=== PATIENT | female | born 1960 | race Caucasian/White ===

== ENCOUNTER 2020-01-21 17:41 | Inpatient (IN) | payer SELFPAY ==
--- NOTE | 2020-01-21 17:49 | EDM.PDOC ---
ED HPI GENERAL MEDICAL PROBLEM - General Chief Complaint: Fever Stated Complaint: FEVER Time Seen by Provider: 01/21/20 17:45 Source of Information: Reports: Patient History Limitations: Reports: No Limitations - History of Present Illness INITIAL COMMENTS - FREE TEXT/NARRATIVE: HISTORY AND PHYSICAL: History of present illness: Patient is a 59-year-old female who presents to the emergency room with complaints of shortness of breath and fever x2 days. Patient states that she is originally from [facility] and recently drove to [place] to settle some legalities over land. She states last night she started to develop shortness of breath which has progressively gotten worse. She has had subjective fevers at home, generalized body aches and fatigue. She does appear to be SOB while talking, states its worse with ambulation or activity. Patient denies any headache, change in vision, syncope or near syncope. Denies any chest pain, back pain or cough. Denies any abdominal pain, nausea, vomiting, diarrhea, constipation or dysuria. Patient has been eating and drinking appropriately. She does not believe she has come into contact with anyone who is been ill. She has a daily smoker. Review of systems: As per history of present illness and below otherwise all systems reviewed and negative. Past medical history: As per history of present illness and as reviewed below otherwise noncontributory. Surgical history: As per history of present illness and as reviewed below otherwise noncontributory. Social history: See social history for further information Family history: As per history of present illness and as reviewed below otherwise noncontributory. Physical exam: General: Well-developed and well-nourished 59-year-old female. Alert and oriented. Mildly ill-appearing and in no acute distress HEENT: Atraumatic, normocephalic, pupils equal and reactive bilaterally, negative for conjunctival pallor or scleral icterus, mucous membranes moist, TMs normal bilaterally, throat clear, neck supple, nontender, trachea midline. No drooling or trismus noted. No meningeal signs. No hot potato voice noted. Lungs: Diminished bases bilaterally, breath sounds equal bilaterally, chest nontender. Labored respirations. Heart: S1S2, regular rate and rhythm without overt murmur Abdomen: Soft, nondistended, nontender. Negative for masses or hepatosplenomegaly. Negative for costovertebral tenderness. Skin: Flushed cheeks bilaterally. Intact, warm, dry. No lesions or rashes noted. Extremities: Atraumatic, moves all extremities per self without difficulty or deficits, negative for cords or calf pain. Neurovascular unremarkable. Neuro: Awake, alert, oriented. Cranial nerves II through XII unremarkable. Cerebellum unremarkable. Motor and sensory unremarkable throughout. Exam nonfocal. Notes: X-ray is increased density within the left base most likely representing atelectasis. Lab work is unremarkable with the exception of an elevated lactate. Due to the recent COVID pandemic; patient will be screened as she meets criteria. IV fluid bolus has been given and fluids are running. Dr. Dubon was consulted on this case and he is agreeable to keeping her for further care and management. Patient will be admitted for observation with telemetry. She was made aware of the diagnostic findings and need for admission, she is agreeable. Patient's vital signs are stable. Diagnostics: CBC, CMP, Lactic, Blood culture x 2, CXR Therapeutics: IV fluids, Toradol, Nasal Cannula, Rocephin, azithromycin Impression: Sepsis Respiratory illness Plan: Observation admission to [facility] [place] with telemetry Definitive disposition and diagnosis as appropriate pending reevaluation and review of above. Duration: Day(s): Location: Reports: Chest Generalized Pain Score (Numeric/FACES): 8 - Related Data Allergies Allergy/AdvReac Type Severity Reaction Status Date / Time No Known Allergies Allergy Verified 01/21/20 17:48 Home Meds: Home Meds . [No Known Home Meds] 01/21/20 [History] ED ROS GENERAL - Review of Systems Review Of Systems: Comprehensive ROS is negative, except as noted in HPI. ED EXAM, GENERAL - Physical Exam Exam: See Below (See dictation) Course - Vital Signs Last Recorded V/S: Last Vital Signs Temp 99.3 F 01/21/20 18:48 Pulse 86 01/21/20 18:48 Resp 18 01/21/20 18:48 BP 141/72 H 01/21/20 18:48 Pulse Ox 97 01/21/20 18:48 - Orders/Labs/Meds Orders: Active Orders 24 hr Category Date Time Status Admission Status [Patient Status] [ADT] Stat ADT 01/21/20 18:45 Active EKG Documentation Completion [RC] STAT Care 01/21/20 17:52 Active Oxygen Therapy, ED [RC] ASDIRECTED Care 01/21/20 18:34 Active CORONAVIRUS COVID-19 PCR PHL [MREF] Stat Lab 01/21/20 18:22 Ordered CULTURE BLOOD [BC] Stat Lab 01/21/20 17:59 Ordered CULTURE BLOOD [BC] Stat Lab 01/21/20 17:59 Ordered CULTURE BLOOD [BC] Stat Lab 01/21/20 18:18 Stop Req UA RFX DARIO AND CULT IF INDIC [URIN] Stat Lab 01/21/20 18:37 Ordered Sodium Chloride 0.9% [Normal Saline] 1,000 ml Med 01/21/20 17:59 Active IV STAT Sodium Chloride 0.9% [Normal Saline] 1,000 ml Med 01/21/20 18:23 Active IV STAT Sodium Chloride 0.9% [Saline Flush] Med 01/21/20 17:52 Active 10 ml FLUSH ASDIRECTED PRN Sodium Chloride 0.9% [Saline Flush] Med 01/21/20 17:52 Active 2.5 ml FLUSH ASDIRECTED PRN cefTRIAXone [Rocephin in Dextrose,Iso-Osm 1 GM/50 ML] 1 Med 01/21/20 18:51 Active gm Premix Bag 1 bag IV ONETIME Blood Culture x2 Reflex Set [OM.PC] Stat Oth 01/21/20 17:59 Ordered Isolation [COMM] Routine Oth 01/21/20 17:53 Active Saline Lock Insert [OM.PC] Stat Oth 01/21/20 17:52 Ordered Medication Orders Sodium Chloride (Normal Saline) 1,000 mls @ 125 mls/hr IV STAT ONE Stop: 01/22/20 01:58 Last Admin: 01/21/20 18:23 Dose: 125 mls/hr Sodium Chloride (Normal Saline) 1,000 mls @ 999 mls/hr IV STAT ONE Stop: 01/21/20 19:23 Ceftriaxone Sodium/Dextrose 1 (gm/ Premix) 50 mls @ 100 mls/hr IV ONETIME ONE Stop: 01/21/20 19:20 Sodium Chloride (Saline Flush) 10 ml FLUSH ASDIRECTED PRN PRN Reason: Keep Vein Open Last Admin: 01/21/20 18:23 Dose: 10 ml Sodium Chloride (Saline Flush) 2.5 ml FLUSH ASDIRECTED PRN PRN Reason: Keep Vein Open Last Admin: 01/21/20 18:23 Dose: 2.5 ml Labs: Laboratory Tests 01/21/20 01/21/20 01/21/20 Range/Units 18:07 18:07 18:07 WBC 7.30 (4.0-11.0) K/uL RBC 4.85 (4.30-5.90) M/uL Hgb 14.7 (12.0-16.0) g/dL Hct 44.7 (36.0-46.0) % MCV 92.2 (80.0-98.0) fL MCH 30.3 (27.0-32.0) pg MCHC 32.9 (31.0-37.0) g/dL RDW Std Deviation 42.5 (28.0-62.0) fl RDW Coeff of [place] 13 (11.0-15.0) % Plt Count 271 (150-400) K/uL MPV 9.50 (7.40-12.00) fL Neut % (Auto) 87.7 H (48.0-80.0) % Lymph % (Auto) 6.8 L (16.0-40.0) % [place] % (Auto) 5.1 (0.0-15.0) % Eos % (Auto) 0.3 (0.0-7.0) % Baso % (Auto) 0.1 (0.0-1.5) % Neut # (Auto) 6.4 H (1.4-5.7) K/uL Lymph # (Auto) 0.5 L (0.6-2.4) K/uL [place] # (Auto) 0.4 (0.0-0.8) K/uL Eos # (Auto) 0.0 (0.0-0.7) K/uL Baso # (Auto) 0.0 (0.0-0.1) K/uL Nucleated RBC % 0.0 /100WBC Nucleated RBCs # 0 K/uL Lactate 3.3 H* (0.20-2.00) mmol/L Sodium 139 (136-145) mmol/L Potassium 4.0 (3.5-5.1) mmol/L Chloride 103 (98-107) mmol/L Carbon Dioxide 23.2 (21.0-32.0) mmol/L BUN 14 (7.0-18.0) mg/dL Creatinine 0.9 (0.6-1.0) mg/dL Est Cr Clr Drug Dosing 59.07 mL/min Estimated GFR (MDRD) > 60.0 ml/min Glucose 138 H (74-106) mg/dL Calcium 8.8 (8.5-10.1) mg/dL Total Bilirubin 0.8 (0.2-1.0) mg/dL AST 27 (15-37) IU/L ALT 25 (14-63) IU/L Alkaline Phosphatase 87 (46-116) U/L Troponin I < 0.050 (0.000-0.056) ng/mL Total Protein 7.4 (6.4-8.2) g/dL Albumin 3.6 (3.4-5.0) g/dL Globulin 3.8 (2.6-4.0) g/dL Albumin/Globulin Ratio 0.9 (0.9-1.6) Meds: Medications Generic Name Dose Route Start Last Admin Trade Name Freq PRN Reason Stop Dose Admin Sodium Chloride 1,000 mls @ 125 mls/hr 01/21/20 17:59 01/21/20 18:23 Normal Saline IV 01/22/20 01:58 125 mls/hr STAT ONE Administration Sodium Chloride 1,000 mls @ 999 mls/hr 01/21/20 18:23 Normal Saline IV 01/21/20 19:23 STAT ONE Ceftriaxone Sodium/Dextrose 1 50 mls @ 100 mls/hr 01/21/20 18:51 gm/ Premix IV 01/21/20 19:20 ONETIME ONE Sodium Chloride 10 ml 01/21/20 17:52 01/21/20 18:23 Saline Flush FLUSH 10 ml ASDIRECTED PRN Administration Keep Vein Open Sodium Chloride 2.5 ml 01/21/20 17:52 01/21/20 18:23 Saline Flush FLUSH 2.5 ml ASDIRECTED PRN Administration Keep Vein Open Discontinued Medications Generic Name Dose Route Start Last Admin Trade Name Freq PRN Reason Stop Dose Admin Azithromycin 500 mg 01/21/20 18:51 Zithromax PO 01/21/20 18:52 NOW STA Ketorolac Tromethamine 30 mg 01/21/20 17:59 01/21/20 18:23 Toradol IVPUSH 01/21/20 18:00 30 mg ONETIME ONE Administration Departure - Departure Time of Disposition: 18:55 Disposition: Refer to Observation Clinical Impression: Respiratory illness Sepsis Qualifiers: Sepsis type: sepsis due to unspecified organism Sepsis acute organ dysfunction status: unspecified Qualified Code(s): A41.9 - Sepsis, unspecified organism - Discharge Information Referrals: PCP,Not In Area [Primary Care Provider] - Forms: ED Department Discharge Sepsis Event Note - Evaluation Sepsis Screening Result: Possible Sepsis Risk - Focused Exam Vital Signs: Vital Signs Temp Pulse Resp BP Pulse Ox 01/21/20 18:48 99.3 F 86 18 141/72 H 97 01/21/20 17:46 101.1 F H 98 24 H 141/88 H 97 Date Exam was Performed: 01/21/20 Time Exam was Performed: 18:55 - My Orders Last 24 Hours: My Active Orders 01/21/20 17:52 EKG Documentation Completion [RC] STAT Sodium Chloride 0.9% [Saline Flush] 10 ml FLUSH ASDIRECTED PRN Sodium Chloride 0.9% [Saline Flush] 2.5 ml FLUSH ASDIRECTED PRN Saline Lock Insert [OM.PC] Stat 01/21/20 17:53 Isolation [COMM] Routine 01/21/20 17:59 CULTURE BLOOD [BC] Stat CULTURE BLOOD [BC] Stat Sodium Chloride 0.9% [Normal Saline] 1,000 ml IV STAT Blood Culture x2 Reflex Set [OM.PC] Stat 01/21/20 18:18 CULTURE BLOOD [BC] Stat 01/21/20 18:22 CORONAVIRUS COVID-19 PCR PHL [MREF] Stat 01/21/20 18:23 Sodium Chloride 0.9% [Normal Saline] 1,000 ml IV STAT 01/21/20 18:34 Oxygen Therapy, ED [RC] ASDIRECTED 01/21/20 18:37 UA RFX DARIO AND CULT IF INDIC [URIN] Stat 01/21/20 18:45 Admission Status [Patient Status] [ADT] Stat 01/21/20 18:51 cefTRIAXone [Rocephin in Dextrose,Iso-Osm 1 GM/50 ML] 1 gm Premix Bag 1 bag IV ONETIME - Assessment/Plan Last 24 Hours: My Active Orders 01/21/20 17:52 EKG Documentation Completion [RC] STAT Sodium Chloride 0.9% [Saline Flush] 10 ml FLUSH ASDIRECTED PRN Sodium Chloride 0.9% [Saline Flush] 2.5 ml FLUSH ASDIRECTED PRN Saline Lock Insert [OM.PC] Stat 01/21/20 17:53 Isolation [COMM] Routine 01/21/20 17:59 CULTURE BLOOD [BC] Stat CULTURE BLOOD [BC] Stat Sodium Chloride 0.9% [Normal Saline] 1,000 ml IV STAT Blood Culture x2 Reflex Set [OM.PC] Stat 01/21/20 18:18 CULTURE BLOOD [BC] Stat 01/21/20 18:22 CORONAVIRUS COVID-19 PCR PHL [MREF] Stat 01/21/20 18:23 Sodium Chloride 0.9% [Normal Saline] 1,000 ml IV STAT 01/21/20 18:34 Oxygen Therapy, ED [RC] ASDIRECTED 01/21/20 18:37 UA RFX DARIO AND CULT IF INDIC [URIN] Stat 01/21/20 18:45 Admission Status [Patient Status] [ADT] Stat 01/21/20 18:51 cefTRIAXone [Rocephin in Dextrose,Iso-Osm 1 GM/50 ML] 1 gm Premix Bag 1 bag IV ONETIME
[2020-01-21] MEDS ORDERED: Sodium Chloride 0.9% 2.5 ML Syringe FLUSH PRN (17:52)
[2020-01-21] MEDS ORDERED: Sodium Chloride 0.9% 10 ML Syringe FLUSH PRN (17:52)
[2020-01-21] MEDS ORDERED: Ketorolac 30 MG/ML SDV IVPUSH ONE (17:59)
[2020-01-21] MEDS ORDERED: Sodium Chloride 0.9% 1,000 ML IV ONE ×2 (17:59→18:23)
[2020-01-21 18:32] LABS: BLOOD UREA NITROGEN,BUN 14 mg/dL (7.0-18.0); CARBON DIOXIDE,CO2 23.2 mmol/L (21.0-32.0); CHLORIDE,CL 103 mmol/L (98-107); GLUCOSE RANDOM 138 mg/dL (74-106); SODIUM,NA 139 mmol/L (136-145)
--- NOTE | 2020-01-21 18:35 | CR ---
Chest: Portable view of the chest was obtained. Comparison: No prior chest imaging is available. Slight increased density above the left hemidiaphragm is noted. This most likely represents atelectasis. Lungs otherwise are clear. Heart size and mediastinum are within normal limits for age. Bony structures show nothing acute. Impression: 1. Increased density within the left base most likely representing atelectasis. 2. Nothing acute is otherwise seen on portable chest x-ray. Diagnostic code #2 Study was dictated in MDT
[2020-01-21] MEDS ORDERED: Azithromycin 250 MG Tab PO STA (18:51)
[2020-01-21] MEDS ORDERED: cefTRIAXone 1 GM in Premix Bag 1 BAG IV ONE (18:51)
[2020-01-21] MEDS: Sodium Chloride 0.9% 1,000 ML IV SCH (22:09)
--- NOTE | 2020-01-21 22:51 | PCM.HP.2 ---
H&P History of Present Illness - General Date of Service: 01/21/20 Admit Problem/Dx: Admission Diagnosis/Problem Admission Diagnosis/Problem Sepsis - History of Present Illness Initial Comments - Free Text/Narative: 59 yo female who presents with several day history of fevers, myalgias and shortness of breath. Patient reports headache but no cough. Two weeks ago she was in a hospital in [facility] with chest pain where she was tested negative for COVID-19. She has since drove up to [place] with her and sister in- law as they had an appointment with a oil inspector. The have been staying in hotels. Vital signs on presentation showed a temp of 38.3, O2 sat of 97% and HR of 98. Laboratory values significant for lactic acid of 3.3. CXR showed left lower lobe infiltrates. Generalized Pain Score (Numeric/FACES): 7 - Related Data Allergies/Adverse Reactions: Allergies Allergy/AdvReac Type Severity Reaction Status Date / Time No Known Allergies Allergy Verified 01/21/20 17:48 Home Medications: Home Meds FLUoxetine [PROzac] 40 mg PO DAILY 01/21/20 [History] Past Medical History HEENT History: Reports: None Cardiovascular History: Reports: None Respiratory History: Reports: None Gastrointestinal History: Reports: None Genitourinary History: Reports: None INHALATION THERAPY AIDE History: Reports: None Musculoskeletal History: Reports: None Psychiatric History: Reports: Anxiety, Depression, PTSD Endocrine/Metabolic History: Reports: None Hematologic History: Reports: None Immunologic History: Reports: None Oncologic (Cancer) History: Reports: None Dermatologic History: Reports: None - Infectious Disease History Infectious Disease History: Reports: Chicken Pox - Past Surgical History Head Surgeries/Procedures: Reports: None Neurological Surgical History: Reports: Lumbar Spine Social & Family History - Tobacco Use Smoking Status *Q: Current Every Day Smoker Years of Tobacco use: 10 Packs/Tins Daily: 0 Second Hand Smoke Exposure: Yes - Recreational Drug Use Recreational Drug Use: No H&P Review of Systems - Review of Systems: Review Of Systems: Comprehensive ROS is negative, except as noted in HPI. Exam - Exam Exam: See Below - Vital Signs Vital Signs: Last Vital Signs Temp 37.4 C 01/21/20 19:43 Pulse 72 01/21/20 20:32 Resp 15 01/21/20 20:32 BP 141/70 H 01/21/20 20:32 Pulse Ox 100 01/21/20 20:32 Weight: 63.9 kg - Patient Data Lab Results Last 24 hrs: Laboratory Results - last 24 hr 01/21/20 01/21/20 01/21/20 Range/Units 18:07 18:07 18:07 WBC 7.30 (4.0-11.0) K/uL RBC 4.85 (4.30-5.90) M/uL Hgb 14.7 (12.0-16.0) g/dL Hct 44.7 (36.0-46.0) % MCV 92.2 (80.0-98.0) fL MCH 30.3 (27.0-32.0) pg MCHC 32.9 (31.0-37.0) g/dL RDW Std Deviation 42.5 (28.0-62.0) fl RDW Coeff of Gila 13 (11.0-15.0) % Plt Count 271 (150-400) K/uL MPV 9.50 (7.40-12.00) fL Neut % (Auto) 87.7 H (48.0-80.0) % Lymph % (Auto) 6.8 L (16.0-40.0) % [place] % (Auto) 5.1 (0.0-15.0) % Eos % (Auto) 0.3 (0.0-7.0) % Baso % (Auto) 0.1 (0.0-1.5) % Neut # (Auto) 6.4 H (1.4-5.7) K/uL Lymph # (Auto) 0.5 L (0.6-2.4) K/uL [place] # (Auto) 0.4 (0.0-0.8) K/uL Eos # (Auto) 0.0 (0.0-0.7) K/uL Baso # (Auto) 0.0 (0.0-0.1) K/uL Nucleated RBC % 0.0 /100WBC Nucleated RBCs # 0 K/uL Lactate 3.3 H* (0.20-2.00) mmol/L Sodium 139 (136-145) mmol/L Potassium 4.0 (3.5-5.1) mmol/L Chloride 103 (98-107) mmol/L Carbon Dioxide 23.2 (21.0-32.0) mmol/L BUN 14 (7.0-18.0) mg/dL Creatinine 0.9 (0.6-1.0) mg/dL Est Cr Clr Drug Dosing 59.07 mL/min Estimated GFR (MDRD) > 60.0 ml/min Glucose 138 H (74-106) mg/dL Calcium 8.8 (8.5-10.1) mg/dL Total Bilirubin 0.8 (0.2-1.0) mg/dL AST 27 (15-37) IU/L ALT 25 (14-63) IU/L Alkaline Phosphatase 87 (46-116) U/L Troponin I < 0.050 (0.000-0.056) ng/mL Total Protein 7.4 (6.4-8.2) g/dL Albumin 3.6 (3.4-5.0) g/dL Globulin 3.8 (2.6-4.0) g/dL Albumin/Globulin Ratio 0.9 (0.9-1.6) Urine Color Urine Appearance Urine pH (5.0-8.0) Ur Specific [place] (1.001-1.035) Urine Protein (NEGATIVE) mg/dL Urine Glucose (UA) (NEGATIVE) mg/dL Urine Ketones (NEGATIVE) mg/dL Urine Occult Blood (NEGATIVE) Urine Nitrite (NEGATIVE) Urine Bilirubin (NEGATIVE) Urine Urobilinogen (<2.0) EU/dL Ur Leukocyte Esterase (NEGATIVE) Urine RBC (0-2/HPF) Urine WBC (0-5/HPF) Ur Epithelial Cells (NONE-FEW) Urine Bacteria (NEGATIVE) 01/21/20 Range/Units 21:10 WBC (4.0-11.0) K/uL RBC (4.30-5.90) M/uL Hgb (12.0-16.0) g/dL Hct (36.0-46.0) % MCV (80.0-98.0) fL MCH (27.0-32.0) pg MCHC (31.0-37.0) g/dL RDW Std Deviation (28.0-62.0) fl RDW Coeff of [place] (11.0-15.0) % Plt Count (150-400) K/uL MPV (7.40-12.00) fL Neut % (Auto) (48.0-80.0) % Lymph % (Auto) (16.0-40.0) % [place] % (Auto) (0.0-15.0) % Eos % (Auto) (0.0-7.0) % Baso % (Auto) (0.0-1.5) % Neut # (Auto) (1.4-5.7) K/uL Lymph # (Auto) (0.6-2.4) K/uL [place] # (Auto) (0.0-0.8) K/uL Eos # (Auto) (0.0-0.7) K/uL Baso # (Auto) (0.0-0.1) K/uL Nucleated RBC % /100WBC Nucleated RBCs # K/uL Lactate (0.20-2.00) mmol/L Sodium (136-145) mmol/L Potassium (3.5-5.1) mmol/L Chloride (98-107) mmol/L Carbon Dioxide (21.0-32.0) mmol/L BUN (7.0-18.0) mg/dL Creatinine (0.6-1.0) mg/dL Est Cr Clr Drug Dosing mL/min Estimated GFR (MDRD) ml/min Glucose (74-106) mg/dL Calcium (8.5-10.1) mg/dL Total Bilirubin (0.2-1.0) mg/dL AST (15-37) IU/L ALT (14-63) IU/L Alkaline Phosphatase (46-116) U/L Troponin I (0.000-0.056) ng/mL Total Protein (6.4-8.2) g/dL Albumin (3.4-5.0) g/dL Globulin (2.6-4.0) g/dL Albumin/Globulin Ratio (0.9-1.6) Urine Color YELLOW Urine Appearance CLEAR Urine pH 5.5 (5.0-8.0) Ur Specific [place] <= 1.005 (1.001-1.035) Urine Protein NEGATIVE (NEGATIVE) mg/dL Urine Glucose (UA) NEGATIVE (NEGATIVE) mg/dL Urine Ketones NEGATIVE (NEGATIVE) mg/dL Urine Occult Blood TRACE-LYSED H (NEGATIVE) Urine Nitrite NEGATIVE (NEGATIVE) Urine Bilirubin NEGATIVE (NEGATIVE) Urine Urobilinogen 0.2 (<2.0) EU/dL Ur Leukocyte Esterase NEGATIVE (NEGATIVE) Urine RBC 0-2 (0-2/HPF) Urine WBC 0-1 (0-5/HPF) Ur Epithelial Cells OCCASIONAL (NONE-FEW) Urine Bacteria RARE (NEGATIVE) Result Diagrams: 01/21/20 18:07 01/21/20 18:07 [place] Results Last 24 hrs: Microbiology 01/21/20 18:09 Influenza Type A Antigen Screen - Final Nasopharyngeal Swab NEGATIVE INFLUENZA A VIRUS AG REFERENCE RANGE: NEGATIVE Influenza Type B Antigen Screen - Final NEGATIVE INFLUENZA B VIRUS AG REFERENCE RANGE: NEGATIVE Sepsis Event Note - Evaluation Sepsis Screening Result: No Definite Risk - Focused Exam Vital Signs: Vital Signs Temp Pulse Resp BP Pulse Ox 01/21/20 20:32 72 15 141/70 H 100 01/21/20 19:43 37.4 C 85 16 147/63 H 100 01/21/20 19:10 82 17 143/66 H 93 L 01/21/20 18:48 37.4 C 86 18 141/72 H 97 01/21/20 17:46 38.4 C H 98 24 H 141/88 H 97 Date Exam was Performed: 01/21/20 Time Exam was Performed: 23:10 Problem List Initiated/Reviewed/Updated: Yes Orders Last 24hrs: Active Orders 24 hr Category Date Time Status Admission Status [Patient Status] [ADT] Stat ADT 01/21/20 18:45 Active Antiembolic Devices [RC] PER UNIT ROUTINE Care 01/21/20 22:04 Active EKG Documentation Completion [RC] STAT Care 01/21/20 17:52 Active Oxygen Therapy [RC] PRN Care 01/21/20 22:03 Active Oxygen Therapy, ED [RC] ASDIRECTED Care 01/21/20 18:34 Active Up ad Lory [RC] ASDIRECTED Care 01/21/20 22:03 Active VTE/DVT Education [RC] PER UNIT ROUTINE Care 01/21/20 22:03 Active Vital Signs [RC] Q4H Care 01/21/20 22:03 Active Regular Diet [DIET] Diet 01/22/20 Breakfast Active BASIC METABOLIC PANEL,BMP [CHEM] AM Lab 01/22/20 05:11 Ordered CBC WITH AUTO DIFF [HEME] AM Lab 01/22/20 05:11 Ordered CORONAVIRUS COVID-19 PCR PHL [MREF] Stat Lab 01/21/20 18:22 Ordered CULTURE BLOOD [BC] Stat Lab 01/21/20 18:18 Stop Req CULTURE BLOOD [BC] Stat Lab 01/21/20 19:02 Received LACTIC ACID,WHOLE BLOOD [BG] Routine Lab 01/21/20 22:15 Ordered Azithromycin [Zithromax] Med 01/22/20 19:00 Active 250 mg PO Q24H Sodium Chloride 0.9% [Normal Saline] 1,000 ml Med 01/21/20 22:00 Active IV ASDIRECTED Sodium Chloride 0.9% [Saline Flush] Med 01/21/20 17:52 Active 10 ml FLUSH ASDIRECTED PRN Sodium Chloride 0.9% [Saline Flush] Med 01/21/20 17:52 Active 2.5 ml FLUSH ASDIRECTED PRN cefTRIAXone [Rocephin] 1 gm Med 01/22/20 19:00 Active Sodium Chloride 0.9% [Normal Saline] 50 ml IV Q24H Blood Culture x2 Reflex Set [OM.PC] Stat Oth 01/21/20 17:59 Ordered Isolation [COMM] Routine Oth 01/21/20 17:53 Active Saline Lock Insert [OM.PC] Stat Oth 01/21/20 17:52 Ordered Sequential Compression Device [OM.PC] Per Unit Routine Oth 01/21/20 22:03 Ordered Resuscitation Status Routine Resus Stat 01/21/20 22:03 Ordered Medication Orders Azithromycin (Zithromax) 250 mg PO Q24H OLIVIA Sodium Chloride (Normal Saline) 1,000 mls @ 125 mls/hr IV ASDIRECTED OLIVIA Last Admin: 01/21/20 22:09 Dose: 125 mls/hr Ceftriaxone Sodium 1 gm/ (Sodium Chloride) 50 mls @ 100 mls/hr IV Q24H OLIVIA Sodium Chloride (Saline Flush) 10 ml FLUSH ASDIRECTED PRN PRN Reason: Keep Vein Open Last Admin: 01/21/20 18:23 Dose: 10 ml Sodium Chloride (Saline Flush) 2.5 ml FLUSH ASDIRECTED PRN PRN Reason: Keep Vein Open Last Admin: 01/21/20 18:23 Dose: 2.5 ml Assessment/Plan Comment:: 59 yo female admitted for community acquired pneumonia. We will treat with Rocephin and azithromycin. We will repeat lactic acid and continue adequate fluid resuscitation. COVID-19 test ordered.
[2020-01-22 06:35] LABS: BLOOD UREA NITROGEN,BUN 14 mg/dL (7.0-18.0); CARBON DIOXIDE,CO2 25.8 mmol/L (21.0-32.0); CHLORIDE,CL 108 mmol/L (98-107); GLUCOSE RANDOM 123 mg/dL (74-106); POTASSIUM,K 3.6 mmol/L (3.5-5.1); SODIUM,NA 142 mmol/L (136-145)
[2020-01-22] MEDS: Sodium Chloride 0.9% 1,000 ML IV SCH ×2 (09:02→10:42)
[2020-01-22] MEDS: FLUoxetine 20 MG Cap PO SCH (09:11)
--- NOTE | 2020-01-22 11:57 | PCM.PN ---
- General Info Date of Service: 01/22/20 Subjective Update: Fever of 100.9 F overnight. Patient complains of SOB, body aches and dry cough this morning. Tolerating oral diet and having bowel movements. - Patient Data Vitals - Most Recent: Last Vital Signs Temp 98.7 F 01/22/20 08:00 Pulse 77 01/22/20 08:00 Resp 20 01/22/20 08:00 BP 130/67 01/22/20 08:00 Pulse Ox 94 L 01/22/20 08:00 Weight - Most Recent: 140 lb 14.006 oz I&O - Last 24 Hours: Intake & Output 01/21/20 01/22/20 01/22/20 22:59 06:59 14:59 Intake Total 2360 Output Total 300 Balance 2060 Lab Results Last 24 Hours: Laboratory Results - last 24 hr 01/21/20 01/21/20 01/21/20 Range/Units 18:07 18:07 18:07 WBC 7.30 (4.0-11.0) K/uL RBC 4.85 (4.30-5.90) M/uL Hgb 14.7 (12.0-16.0) g/dL Hct 44.7 (36.0-46.0) % MCV 92.2 (80.0-98.0) fL MCH 30.3 (27.0-32.0) pg MCHC 32.9 (31.0-37.0) g/dL RDW Std Deviation 42.5 (28.0-62.0) fl RDW Coeff of [place] 13 (11.0-15.0) % Plt Count 271 (150-400) K/uL MPV 9.50 (7.40-12.00) fL Neut % (Auto) 87.7 H (48.0-80.0) % Lymph % (Auto) 6.8 L (16.0-40.0) % [place] % (Auto) 5.1 (0.0-15.0) % Eos % (Auto) 0.3 (0.0-7.0) % Baso % (Auto) 0.1 (0.0-1.5) % Neut # (Auto) 6.4 H (1.4-5.7) K/uL Lymph # (Auto) 0.5 L (0.6-2.4) K/uL [place] # (Auto) 0.4 (0.0-0.8) K/uL Eos # (Auto) 0.0 (0.0-0.7) K/uL Baso # (Auto) 0.0 (0.0-0.1) K/uL Nucleated RBC % 0.0 /100WBC Nucleated RBCs # 0 K/uL Lactate 3.3 H* (0.20-2.00) mmol/L Sodium 139 (136-145) mmol/L Potassium 4.0 (3.5-5.1) mmol/L Chloride 103 (98-107) mmol/L Carbon Dioxide 23.2 (21.0-32.0) mmol/L BUN 14 (7.0-18.0) mg/dL Creatinine 0.9 (0.6-1.0) mg/dL Est Cr Clr Drug Dosing 59.07 mL/min Estimated GFR (MDRD) > 60.0 ml/min Glucose 138 H (74-106) mg/dL Calcium 8.8 (8.5-10.1) mg/dL Total Bilirubin 0.8 (0.2-1.0) mg/dL AST 27 (15-37) IU/L ALT 25 (14-63) IU/L Alkaline Phosphatase 87 (46-116) U/L Troponin I < 0.050 (0.000-0.056) ng/mL Total Protein 7.4 (6.4-8.2) g/dL Albumin 3.6 (3.4-5.0) g/dL Globulin 3.8 (2.6-4.0) g/dL Albumin/Globulin Ratio 0.9 (0.9-1.6) Urine Color Urine Appearance Urine pH (5.0-8.0) Ur Specific [place] (1.001-1.035) Urine Protein (NEGATIVE) mg/dL Urine Glucose (UA) (NEGATIVE) mg/dL Urine Ketones (NEGATIVE) mg/dL Urine Occult Blood (NEGATIVE) Urine Nitrite (NEGATIVE) Urine Bilirubin (NEGATIVE) Urine Urobilinogen (<2.0) EU/dL Ur Leukocyte Esterase (NEGATIVE) Urine RBC (0-2/HPF) Urine WBC (0-5/HPF) Ur Epithelial Cells (NONE-FEW) Urine Bacteria (NEGATIVE) 0301/21/20 01/22/20 Range/Units 21:10 22:35 06:10 WBC 4.54 (4.0-11.0) K/uL RBC 4.22 L (4.30-5.90) M/uL Hgb 12.6 (12.0-16.0) g/dL Hct 39.5 (36.0-46.0) % MCV 93.6 (80.0-98.0) fL MCH 29.9 (27.0-32.0) pg MCHC 31.9 (31.0-37.0) g/dL RDW Std Deviation 43.4 (28.0-62.0) fl RDW Coeff of [place] 13 (11.0-15.0) % Plt Count 247 (150-400) K/uL MPV 9.40 (7.40-12.00) fL Neut % (Auto) 77.1 (48.0-80.0) % Lymph % (Auto) 13.0 L (16.0-40.0) % [place] % (Auto) 9.7 (0.0-15.0) % Eos % (Auto) 0.0 (0.0-7.0) % Baso % (Auto) 0.2 (0.0-1.5) % Neut # (Auto) 3.5 (1.4-5.7) K/uL Lymph # (Auto) 0.6 (0.6-2.4) K/uL [place] # (Auto) 0.4 (0.0-0.8) K/uL Eos # (Auto) 0.0 (0.0-0.7) K/uL Baso # (Auto) 0.0 (0.0-0.1) K/uL Nucleated RBC % 0.0 /100WBC Nucleated RBCs # 0 K/uL Lactate 1.1 (0.20-2.00) mmol/L Sodium (136-145) mmol/L Potassium (3.5-5.1) mmol/L Chloride (98-107) mmol/L Carbon Dioxide (21.0-32.0) mmol/L BUN (7.0-18.0) mg/dL Creatinine (0.6-1.0) mg/dL Est Cr Clr Drug Dosing mL/min Estimated GFR (MDRD) ml/min Glucose (74-106) mg/dL Calcium (8.5-10.1) mg/dL Total Bilirubin (0.2-1.0) mg/dL AST (15-37) IU/L ALT (14-63) IU/L Alkaline Phosphatase (46-116) U/L Troponin I (0.000-0.056) ng/mL Total Protein (6.4-8.2) g/dL Albumin (3.4-5.0) g/dL Globulin (2.6-4.0) g/dL Albumin/Globulin Ratio (0.9-1.6) Urine Color YELLOW Urine Appearance CLEAR Urine pH 5.5 (5.0-8.0) Ur Specific [place] <= 1.005 (1.001-1.035) Urine Protein NEGATIVE (NEGATIVE) mg/dL Urine Glucose (UA) NEGATIVE (NEGATIVE) mg/dL Urine Ketones NEGATIVE (NEGATIVE) mg/dL Urine Occult Blood TRACE-LYSED H (NEGATIVE) Urine Nitrite NEGATIVE (NEGATIVE) Urine Bilirubin NEGATIVE (NEGATIVE) Urine Urobilinogen 0.2 (<2.0) EU/dL Ur Leukocyte Esterase NEGATIVE (NEGATIVE) Urine RBC 0-2 (0-2/HPF) Urine WBC 0-1 (0-5/HPF) Ur Epithelial Cells OCCASIONAL (NONE-FEW) Urine Bacteria RARE (NEGATIVE) 01/22/20 01/22/20 Range/Units 06:10 06:10 WBC (4.0-11.0) K/uL RBC (4.30-5.90) M/uL Hgb (12.0-16.0) g/dL Hct (36.0-46.0) % MCV (80.0-98.0) fL MCH (27.0-32.0) pg MCHC (31.0-37.0) g/dL RDW Std Deviation (28.0-62.0) fl RDW Coeff of [place] (11.0-15.0) % Plt Count (150-400) K/uL MPV (7.40-12.00) fL Neut % (Auto) (48.0-80.0) % Lymph % (Auto) (16.0-40.0) % [place] % (Auto) (0.0-15.0) % Eos % (Auto) (0.0-7.0) % Baso % (Auto) (0.0-1.5) % Neut # (Auto) (1.4-5.7) K/uL Lymph # (Auto) (0.6-2.4) K/uL [place] # (Auto) (0.0-0.8) K/uL Eos # (Auto) (0.0-0.7) K/uL Baso # (Auto) (0.0-0.1) K/uL Nucleated RBC % /100WBC Nucleated RBCs # K/uL Lactate (0.20-2.00) mmol/L Sodium 142 (136-145) mmol/L Potassium 3.6 (3.5-5.1) mmol/L Chloride 108 H (98-107) mmol/L Carbon Dioxide 25.8 (21.0-32.0) mmol/L BUN 14 (7.0-18.0) mg/dL Creatinine 0.9 (0.6-1.0) mg/dL Est Cr Clr Drug Dosing 59.07 mL/min Estimated GFR (MDRD) > 60.0 ml/min Glucose 123 H (74-106) mg/dL Calcium 8.0 L (8.5-10.1) mg/dL Total Bilirubin (0.2-1.0) mg/dL AST (15-37) IU/L ALT (14-63) IU/L Alkaline Phosphatase (46-116) U/L Troponin I (0.000-0.056) ng/mL Total Protein (6.4-8.2) g/dL Albumin 2.9 L (3.4-5.0) g/dL Globulin (2.6-4.0) g/dL Albumin/Globulin Ratio (0.9-1.6) Urine Color Urine Appearance Urine pH (5.0-8.0) Ur Specific [place] (1.001-1.035) Urine Protein (NEGATIVE) mg/dL Urine Glucose (UA) (NEGATIVE) mg/dL Urine Ketones (NEGATIVE) mg/dL Urine Occult Blood (NEGATIVE) Urine Nitrite (NEGATIVE) Urine Bilirubin (NEGATIVE) Urine Urobilinogen (<2.0) EU/dL Ur Leukocyte Esterase (NEGATIVE) Urine RBC (0-2/HPF) Urine WBC (0-5/HPF) Ur Epithelial Cells (NONE-FEW) Urine Bacteria (NEGATIVE) [place] Results Last 24 Hours: Microbiology 01/21/20 18:09 Influenza Type A Antigen Screen - Final Nasopharyngeal Swab NEGATIVE INFLUENZA A VIRUS AG REFERENCE RANGE: NEGATIVE Influenza Type B Antigen Screen - Final NEGATIVE INFLUENZA B VIRUS AG REFERENCE RANGE: NEGATIVE Med Orders - Current: Current Medications Azithromycin (Zithromax) 250 mg PO Q24H [facility] Fluoxetine HCl (Prozac) 40 mg PO DAILY [facility] Last Admin: 01/22/20 09:11 Dose: 40 mg Ceftriaxone Sodium 1 gm/ (Sodium Chloride) 50 mls @ 100 mls/hr IV Q24H OLIVIA Sodium Chloride (Normal Saline) 1,000 mls @ 50 mls/hr IV Q20H [facility]IVIA Last Admin: 01/22/20 10:42 Dose: 50 mls/hr Sodium Chloride (Saline Flush) 10 ml FLUSH ASDIRECTED PRN PRN Reason: Keep Vein Open Last Admin: 01/21/20 18:23 Dose: 10 ml Sodium Chloride (Saline Flush) 2.5 ml FLUSH ASDIRECTED PRN PRN Reason: Keep Vein Open Last Admin: 01/21/20 18:23 Dose: 2.5 ml Discontinued Medications Azithromycin (Zithromax) 500 mg PO NOW STA Stop: 01/21/20 18:52 Last Admin: 01/21/20 19:09 Dose: 500 mg Sodium Chloride (Normal Saline) 1,000 mls @ 999 mls/hr IV STAT ONE Stop: 01/21/20 18:59 Last Admin: 01/21/20 18:23 Dose: 125 mls/hr Sodium Chloride (Normal Saline) 1,000 mls @ 999 mls/hr IV STAT ONE Stop: 01/21/20 19:23 Last Admin: 01/21/20 19:09 Dose: 999 mls/hr Ceftriaxone Sodium/Dextrose 1 (gm/ Premix) 50 mls @ 100 mls/hr IV ONETIME ONE Stop: 01/21/20 19:20 Last Admin: 01/21/20 19:09 Dose: 100 mls/hr Sodium Chloride (Normal Saline) 1,000 mls @ 125 mls/hr IV ASDIRECTED [facility]IVIA Last Admin: 01/22/20 09:02 Dose: 125 mls/hr Ketorolac Tromethamine (Toradol) 30 mg IVPUSH ONETIME ONE Stop: 01/21/20 18:00 Last Admin: 01/21/20 18:23 Dose: 30 mg - Exam General: Alert, Oriented, Mild Distress, Other (fatigued) Lungs: Normal Respiratory Effort, Other (quiet breath sounds b/l) Cardiovascular: Regular Rate, Regular Rhythm GI/Abdominal Exam: Normal Bowel Sounds, Soft, Non-Tender, No Distention Extremities: Normal Inspection, No Pedal Edema Sepsis Event Note - Evaluation Sepsis Screening Result: No Definite Risk - Focused Exam Vital Signs: Vital Signs Temp Pulse Resp BP Pulse Ox 01/22/20 08:00 98.7 F 77 20 130/67 94 L 01/22/20 04:31 99.6 F 95 20 145/74 H 94 L 01/22/20 01:18 100.9 F H 95 18 146/80 H 96 Date Exam was Performed: 01/22/20 Time Exam was Performed: 13:03 - Problem List Review Problem List Initiated/Reviewed/Updated: Yes - My Orders Last 24 Hours: My Active Orders 01/22/20 09:00 FLUoxetine [PROzac] 40 mg PO DAILY 01/23/20 05:11 CBC WITH AUTO DIFF [HEME] AM COMPREHENSIVE METABOLIC PN,CMP [CHEM] AM - Plan Plan:: Assessment and Plan: 1. Sepsis secondary to community acquired pneumonia: - Continue IV ceftriaxone and PO azithromycin. Repeat lactate level normal. Blood cultures pending. Influenza test negative. COVID19 test pending. IV NS 50 cc/hr. Will be careful with IV fluids as COVID19 test still pending. Patient currently on room air. 2. Past medical history of anxiety, depression and PTSD: - Resume home medications. 3. DVT prophylaxis: SCD's.
[2020-01-22] MEDS ORDERED: cefTRIAXone 1 GM in Sodium Chloride 0.9% 50 ML IV SCH (19:00)
[2020-01-22] MEDS: Azithromycin 250 MG Tab PO SCH (19:08)
[2020-01-22] MEDS: cefTRIAXone 1 GM in Premix Bag 1 BAG IV SCH (19:09)
[2020-01-23] MEDS: Sodium Chloride 0.9% 1,000 ML IV SCH (05:47)
[2020-01-23 06:46] LABS: BLOOD UREA NITROGEN,BUN 11 mg/dL (7.0-18.0); CARBON DIOXIDE,CO2 23.9 mmol/L (21.0-32.0); CHLORIDE,CL 107 mmol/L (98-107); GLUCOSE RANDOM 89 mg/dL (74-106); POTASSIUM,K 3.2 mmol/L (3.5-5.1); SODIUM,NA 141 mmol/L (136-145)
[2020-01-23] MEDS ORDERED: Potassium Chloride 20 MEQ Tab.ER PO ONE (07:24)
[2020-01-23] MEDS: FLUoxetine 20 MG Cap PO SCH (08:56)
--- NOTE | 2020-01-23 09:16 | PCM.PN ---
- General Info Date of Service: 01/23/20 Subjective Update: Patient was afebrile and vital signs stable overnight. Still complains of SOB this morning and sweats. Has been having diarrhea. She is not coughing as much as yesterday. - Patient Data Vitals - Most Recent: Last Vital Signs Temp 98 F 01/23/20 08:53 Pulse 85 01/23/20 08:53 Resp 16 01/23/20 08:53 BP 152/70 H 01/23/20 08:53 Pulse Ox 96 01/23/20 08:53 Weight - Most Recent: 140 lb 14.006 oz I&O - Last 24 Hours: Intake & Output 01/22/20 01/23/20 01/23/20 22:59 06:59 14:59 Intake Total 1240 450 Output Total 700 600 Balance 540 -150 Lab Results Last 24 Hours: Laboratory Results - last 24 hr 01/23/20 01/23/20 Range/Units 06:10 06:10 WBC 6.07 (4.0-11.0) K/uL RBC 4.34 (4.30-5.90) M/uL Hgb 12.7 (12.0-16.0) g/dL Hct 40.1 (36.0-46.0) % MCV 92.4 (80.0-98.0) fL MCH 29.3 (27.0-32.0) pg MCHC 31.7 (31.0-37.0) g/dL RDW Std Deviation 42.4 (28.0-62.0) fl RDW Coeff of [place] 13 (11.0-15.0) % Plt Count 240 (150-400) K/uL MPV 9.30 (7.40-12.00) fL Neut % (Auto) 74.3 (48.0-80.0) % Lymph % (Auto) 14.7 L (16.0-40.0) % [place] % (Auto) 9.2 (0.0-15.0) % Eos % (Auto) 1.6 (0.0-7.0) % Baso % (Auto) 0.2 (0.0-1.5) % Neut # (Auto) 4.5 (1.4-5.7) K/uL Lymph # (Auto) 0.9 (0.6-2.4) K/uL [place] # (Auto) 0.6 (0.0-0.8) K/uL Eos # (Auto) 0.1 (0.0-0.7) K/uL Baso # (Auto) 0.0 (0.0-0.1) K/uL Nucleated RBC % 0.0 /100WBC Nucleated RBCs # 0 K/uL Sodium 141 (136-145) mmol/L Potassium 3.2 L (3.5-5.1) mmol/L Chloride 107 (98-107) mmol/L Carbon Dioxide 23.9 (21.0-32.0) mmol/L BUN 11 (7.0-18.0) mg/dL Creatinine 0.7 (0.6-1.0) mg/dL Est Cr Clr Drug Dosing 75.94 mL/min Estimated GFR (MDRD) > 60.0 ml/min Glucose 89 (74-106) mg/dL Calcium 8.3 L (8.5-10.1) mg/dL Total Bilirubin 0.7 (0.2-1.0) mg/dL AST 22 (15-37) IU/L ALT 25 (14-63) IU/L Alkaline Phosphatase 69 (46-116) U/L Total Protein 6.5 (6.4-8.2) g/dL Albumin 2.9 L (3.4-5.0) g/dL Globulin 3.6 (2.6-4.0) g/dL Albumin/Globulin Ratio 0.8 L (0.9-1.6) [place] Results Last 24 Hours: Microbiology 01/21/20 19:02 Aerobic Blood Culture - Preliminary Blood - Venous - Lab Draw NO GROWTH AFTER 1 DAY Anaerobic Blood Culture - Preliminary NO GROWTH AFTER 1 DAY 01/21/20 18:18 Aerobic Blood Culture - Preliminary Blood - Venous NO GROWTH AFTER 1 DAY Anaerobic Blood Culture - Preliminary NO GROWTH AFTER 1 DAY Med Orders - Current: Current Medications Azithromycin (Zithromax) 250 mg PO Q24H [facility] Last Admin: 01/22/20 19:08 Dose: 250 mg Fluoxetine HCl (Prozac) 40 mg PO DAILY [facility] Last Admin: 01/23/20 08:56 Dose: 40 mg Sodium Chloride (Normal Saline) 1,000 mls @ 50 mls/hr IV Q20H [facility] Last Admin: 01/23/20 05:47 Dose: 50 mls/hr Ceftriaxone Sodium/Dextrose 1 (gm/ Premix) 50 mls @ 100 mls/hr IV Q24H [facility] Last Admin: 01/22/20 19:09 Dose: 100 mls/hr Sodium Chloride (Saline Flush) 10 ml FLUSH ASDIRECTED PRN PRN Reason: Keep Vein Open Last Admin: 01/21/20 18:23 Dose: 10 ml Sodium Chloride (Saline Flush) 2.5 ml FLUSH ASDIRECTED PRN PRN Reason: Keep Vein Open Last Admin: 01/21/20 18:23 Dose: 2.5 ml Discontinued Medications Azithromycin (Zithromax) 500 mg PO NOW STA Stop: 01/21/20 18:52 Last Admin: 01/21/20 19:09 Dose: 500 mg Sodium Chloride (Normal Saline) 1,000 mls @ 999 mls/hr IV STAT ONE Stop: 01/21/20 18:59 Last Admin: 01/21/20 18:23 Dose: 125 mls/hr Sodium Chloride (Normal Saline) 1,000 mls @ 999 mls/hr IV STAT ONE Stop: 01/21/20 19:23 Last Admin: 01/21/20 19:09 Dose: 999 mls/hr Ceftriaxone Sodium/Dextrose 1 (gm/ Premix) 50 mls @ 100 mls/hr IV ONETIME ONE Stop: 01/21/20 19:20 Last Admin: 01/21/20 19:09 Dose: 100 mls/hr Sodium Chloride (Normal Saline) 1,000 mls @ 125 mls/hr IV ASDIRECTED [facility] Last Admin: 01/22/20 09:02 Dose: 125 mls/hr Ceftriaxone Sodium 1 gm/ (Sodium Chloride) 50 mls @ 100 mls/hr IV Q24H [facility] Ketorolac Tromethamine (Toradol) 30 mg IVPUSH ONETIME ONE Stop: 01/21/20 18:00 Last Admin: 01/21/20 18:23 Dose: 30 mg Potassium Chloride (Klor-Con M20) 40 meq PO ONETIME ONE Stop: 01/23/20 07:25 Last Admin: 01/23/20 08:56 Dose: 40 meq - Exam General: Alert, Oriented, Cooperative, Mild Distress Lungs: Normal Respiratory Effort, Other (quiet breath sounds b/l) Cardiovascular: Regular Rate, Regular Rhythm GI/Abdominal Exam: Normal Bowel Sounds, Soft, Non-Tender, No Distention Extremities: Normal Inspection, No Pedal Edema Skin: Other (Sweats) Sepsis Event Note - Evaluation Sepsis Screening Result: No Definite Risk - Focused Exam Vital Signs: Vital Signs Temp Pulse Resp BP BP Pulse Ox 01/23/20 08:53 98 F 85 16 152/70 H 96 01/23/20 04:00 98.5 F 85 19 149/81 H 93 L 01/23/20 00:30 98.9 F 78 20 171/81 H 96 Date Exam was Performed: 01/23/20 Time Exam was Performed: 10:36 - Problem List Review Problem List Initiated/Reviewed/Updated: Yes - My Orders Last 24 Hours: My Active Orders 01/22/20 09:00 FLUoxetine [PROzac] 40 mg PO DAILY 01/22/20 13:18 Intake and Output Strict [RC] Q12H 01/23/20 09:07 C DIFFICILE AG/TOXIN W/REFLEX [RM] Urgent STOOL CULTURE/SHIGA TOXIN [MREF] Urgent 01/24/20 05:11 CBC WITH AUTO DIFF [HEME] AM COMPREHENSIVE METABOLIC PN,CMP [CHEM] AM - Plan Plan:: Assessment and Plan: 1. Sepsis secondary to community acquired pneumonia: - Will continue IV ceftriaxone and PO azithromycin. Blood cultures negative @ 24 hours. Influenza test negative. COVID19 test pending. Will be cautious with IV fluids as patient's COVID19 test is pending. Currently on IV NS 50 cc/hr. Patient currently on room air. 2. Diarrhea: - Will order stool cultures and test for C. diff. 3. Past medical history of anxiety, depression and PTSD: - Resume home medications. 4. DVT prophylaxis: SCD's.
[2020-01-23] MEDS ORDERED: Ondansetron 4 MG/2 ML SDV IVPUSH PRN (10:14)
[2020-01-23] MEDS ORDERED: Ondansetron 4 MG/2 ML SDV ONE (10:17)
--- NOTE | 2020-01-23 16:19 | CT ---
CT chest Technique: Multiple axial sections through the chest were obtained. Intravenous contrast was not utilized. Comparison: Prior chest x-ray of 01/21/20. Findings: Slight scarring and atelectasis is seen within both lung bases. Lungs otherwise are clear with no acute parenchymal change. Mediastinum and hilar regions show no adenopathy. Aorta shows atherosclerotic calcification without aneurysm. No pericardial thickening is seen. Visualized upper abdominal structures shows no discrete abnormality. Minimal coronary artery calcification is noted. No axillary adenopathy is seen. Bone window settings were reviewed which show no acute osseous finding. Impression: 1. Findings as noted above. Nothing acute is seen on noncontrast CT study of the chest. Diagnostic code #2 Study was dictated in MDT
--- NOTE | 2020-01-23 16:19 | CT ---
CT abdomen and pelvis Technique: Multiple axial sections were obtained from above the dome of the diaphragm inferiorly through the pubic symphysis. Intravenous and oral contrast was not utilized. Comparison: No prior abdominal imaging. Findings: Scarring and atelectasis again noted within both lung bases. Noncontrast appearance of the liver shows no focal parenchymal abnormality. Calcifications seen along the splenic capsule believed to be incidental. Adrenal glands show no nodule. Pancreas is within normal limits. Kidneys show no abnormal calcifications. No hydronephrosis is seen. Gallbladder contains layering increased density either due to gallstones or sludge. Aorta shows atherosclerotic change. No aneurysm is seen. No retroperitoneal adenopathy or mesenteric abnormalities are seen. No pelvic mass or adenopathy is seen. No free fluid or inflammatory change is seen. Appendix is visualized and is felt to be within normal limits. No bowel dilatation is appreciated. Bone window settings were reviewed which shows mild degenerative change within the spine with mild scoliosis. No acute osseous finding is appreciated. Impression: 1. Nothing acute is seen on noncontrast CT study of the abdomen and pelvis. 2. Other findings as described above. Diagnostic code #2 Study was dictated in MDT
[2020-01-23] MEDS: Azithromycin 250 MG Tab PO SCH (18:33)
[2020-01-23] MEDS: cefTRIAXone 1 GM in Premix Bag 1 BAG IV SCH (18:33)
[2020-01-24] MEDS: Sodium Chloride 0.9% 1,000 ML IV SCH (03:45)
[2020-01-24 07:12] LABS: BLOOD UREA NITROGEN,BUN 12 mg/dL (7.0-18.0); CARBON DIOXIDE,CO2 27.3 mmol/L (21.0-32.0); CHLORIDE,CL 109 mmol/L (98-107); GLUCOSE RANDOM 92 mg/dL (74-106); POTASSIUM,K 3.8 mmol/L (3.5-5.1); SODIUM,NA 144 mmol/L (136-145)
[2020-01-24] MEDS ORDERED: Acetaminophen 500 MG Tab PO PRN (07:43)
[2020-01-24] MEDS: FLUoxetine 20 MG Cap PO SCH (08:03)
--- NOTE | 2020-01-24 11:13 | PCM.DCSUM1 ---
<Prashant Da Silva - Last Filed: 01/24/20 11:39> Discharge Summary - Hospital Course Free Text/Narrative:: 59-year-old female admitted for sepsis secondary to community acquired pneumonia. She has a PMH of anxiety, depression and PTSD. She was treated with IV ceftriaxone and PO azithromycin. CXR on admission showed LLL density. CT chest was negative. CT abd/pelvis was negative. Influenza test negative. COVID19 test negative. Blood cultures were negative. Patient also complained of diarrhea throughout hospitalization, however, on day of discharge patient's diarrhea had resolved. Patient noted significant improvement in her breathing and cough on day of discharge. Provided script for 7 more days of azithromycin and cefdinir. She was given PT referral for history of left knee pain. Advised to self-quarantine on discharge. Advised to follow-up with PCP. - Discharge Data Discharge Date: 01/24/20 Discharge Disposition: Home, Self-Care 01 Condition: Stable - Referral to Home Health Primary Care Physician: PCP Not In Area - Patient Instructions Diet: Regular Diet as Tolerated Activity: As Tolerated Notify Provider of: Fever, Increased Pain, Swelling and Redness, Drainage, Nausea and/or Vomiting - Discharge Plan *PRESCRIPTION DRUG MONITORING PROGRAM REVIEWED*: Not Applicable *COPY OF PRESCRIPTION DRUG MONITORING REPORT IN PATIENT TRIP: Not Applicable Prescriptions/Med Rec: Azithromycin [Zithromax] 250 mg PO Q24H 7 Days #7 tablet Cefdinir 300 mg PO BID 7 Days #14 capsule FLUoxetine HCl [Prozac] 40 mg PO DAILY 30 Days #60 capsule Home Medications: Home Meds Azithromycin [Zithromax] 250 mg PO Q24H 7 Days #7 tablet 01/24/20 [Rx] Cefdinir 300 mg PO BID 7 Days #14 capsule 01/24/20 [Rx] FLUoxetine HCl [Prozac] 40 mg PO DAILY 30 Days #60 capsule 01/24/20 [Rx] Oxygen Therapy Mode: Room Air Patient Handouts: Cefdinir capsules, Azithromycin tablets, Community-Acquired Pneumonia, Adult, [id number] Referrals: Cecilia Valles NP [Nurse Practitioner] - 01/29/20 10:30 am - Discharge Summary/Plan Comment DC Time >30 min.: No - Patient Data Vitals - Most Recent: Last Vital Signs Temp 97.2 F 01/24/20 03:44 Pulse 66 01/24/20 03:44 Resp 18 01/24/20 03:44 BP 121/79 01/24/20 03:44 Pulse Ox 93 L 01/24/20 03:44 Weight - Most Recent: 63.9 kg I&O - Last 24 hours: Intake & Output 01/23/20 01/24/20 01/24/20 22:59 06:59 14:59 Intake Total 1070 610 Output Total 300 525 Balance 770 85 Lab Results - Last 24 hrs: Laboratory Results - last 24 hr 01/24/20 01/24/20 Range/Units 06:30 06:30 WBC 4.56 (4.0-11.0) K/uL RBC 4.28 L (4.30-5.90) M/uL Hgb 12.5 (12.0-16.0) g/dL Hct 39.6 (36.0-46.0) % MCV 92.5 (80.0-98.0) fL MCH 29.2 (27.0-32.0) pg MCHC 31.6 (31.0-37.0) g/dL RDW Std Deviation 42.4 (28.0-62.0) fl RDW Coeff of [place] 13 (11.0-15.0) % Plt Count 243 (150-400) K/uL MPV 9.40 (7.40-12.00) fL Neut % (Auto) 54.6 (48.0-80.0) % Lymph % (Auto) 24.8 (16.0-40.0) % [place] % (Auto) 14.7 (0.0-15.0) % Eos % (Auto) 5.7 (0.0-7.0) % Baso % (Auto) 0.2 (0.0-1.5) % Neut # (Auto) 2.5 (1.4-5.7) K/uL Lymph # (Auto) 1.1 (0.6-2.4) K/uL [place] # (Auto) 0.7 (0.0-0.8) K/uL Eos # (Auto) 0.3 (0.0-0.7) K/uL Baso # (Auto) 0.0 (0.0-0.1) K/uL Nucleated RBC % 0.0 /100WBC Nucleated RBCs # 0 K/uL Sodium 144 (136-145) mmol/L Potassium 3.8 (3.5-5.1) mmol/L Chloride 109 H (98-107) mmol/L Carbon Dioxide 27.3 (21.0-32.0) mmol/L BUN 12 (7.0-18.0) mg/dL Creatinine 0.7 (0.6-1.0) mg/dL Est Cr Clr Drug Dosing 75.94 mL/min Estimated GFR (MDRD) > 60.0 ml/min Glucose 92 (74-106) mg/dL Calcium 8.4 L (8.5-10.1) mg/dL Total Bilirubin 0.4 (0.2-1.0) mg/dL AST 31 (15-37) IU/L ALT 26 (14-63) IU/L Alkaline Phosphatase 68 (46-116) U/L Total Protein 6.3 L (6.4-8.2) g/dL Albumin 2.8 L (3.4-5.0) g/dL Globulin 3.5 (2.6-4.0) g/dL Albumin/Globulin Ratio 0.8 L (0.9-1.6) DARIO Results - Last 24 hrs: Microbiology 01/21/20 19:02 Aerobic Blood Culture - Preliminary Blood - Venous - Lab Draw NO GROWTH AFTER 2 DAYS Anaerobic Blood Culture - Preliminary NO GROWTH AFTER 2 DAYS 01/21/20 18:18 Aerobic Blood Culture - Preliminary Blood - Venous NO GROWTH AFTER 2 DAYS Anaerobic Blood Culture - Preliminary NO GROWTH AFTER 2 DAYS 01/21/20 18:22 Coronavirus RNA (PCR) - Final Nasopharyngeal Swab Med Orders - Current: Current Medications Acetaminophen (Tylenol Extra Strength) 500 mg PO Q4H PRN PRN Reason: Pain Last Admin: 01/24/20 08:03 Dose: 500 mg Azithromycin (Zithromax) 250 mg PO Q24H OLIVIA Last Admin: 01/23/20 18:33 Dose: 250 mg Fluoxetine HCl (Prozac) 40 mg PO DAILY [facility] Last Admin: 01/24/20 08:03 Dose: 40 mg Sodium Chloride (Normal Saline) 1,000 mls @ 50 mls/hr IV Q20H OLIVIA Last Admin: 01/24/20 03:45 Dose: 50 mls/hr Ceftriaxone Sodium/Dextrose 1 (gm/ Premix) 50 mls @ 100 mls/hr IV Q24H [facility] Last Admin: 01/23/20 18:33 Dose: 100 mls/hr Ondansetron HCl (Zofran) 4 mg IVPUSH Q4H PRN PRN Reason: Nausea Last Admin: 01/23/20 10:21 Dose: 4 mg Sodium Chloride (Saline Flush) 10 ml FLUSH ASDIRECTED PRN PRN Reason: Keep Vein Open Last Admin: 01/21/20 18:23 Dose: 10 ml Sodium Chloride (Saline Flush) 2.5 ml FLUSH ASDIRECTED PRN PRN Reason: Keep Vein Open Last Admin: 01/21/20 18:23 Dose: 2.5 ml Discontinued Medications Azithromycin (Zithromax) 500 mg PO NOW STA Stop: 01/21/20 18:52 Last Admin: 01/21/20 19:09 Dose: 500 mg Sodium Chloride (Normal Saline) 1,000 mls @ 999 mls/hr IV STAT ONE Stop: 01/21/20 18:59 Last Admin: 01/21/20 18:23 Dose: 125 mls/hr Sodium Chloride (Normal Saline) 1,000 mls @ 999 mls/hr IV STAT ONE Stop: 01/21/20 19:23 Last Admin: 01/21/20 19:09 Dose: 999 mls/hr Ceftriaxone Sodium/Dextrose 1 (gm/ Premix) 50 mls @ 100 mls/hr IV ONETIME ONE Stop: 01/21/20 19:20 Last Admin: 01/21/20 19:09 Dose: 100 mls/hr Sodium Chloride (Normal Saline) 1,000 mls @ 125 mls/hr IV ASDIRECTED OLIVIA Last Admin: 01/22/20 09:02 Dose: 125 mls/hr Ceftriaxone Sodium 1 gm/ (Sodium Chloride) 50 mls @ 100 mls/hr IV Q24H [facility] Ketorolac Tromethamine (Toradol) 30 mg IVPUSH ONETIME ONE Stop: 01/21/20 18:00 Last Admin: 01/21/20 18:23 Dose: 30 mg Ondansetron HCl (Zofran) Confirm Administered Dose 4 mg .ROUTE .STK-MED ONE Stop: 01/23/20 10:18 Last Admin: 01/23/20 11:28 Dose: Not Given Potassium Chloride (Klor-Con M20) 40 meq PO ONETIME ONE Stop: 01/23/20 07:25 Last Admin: 01/23/20 08:56 Dose: 40 meq <Antoni Dubon - Last Filed: 01/27/20 20:05> Discharge Summary - Referral to [facility] Primary Care Physician: PCP Not In Area - Patient Data Vitals - Most Recent: Last Vital Signs Temp 36.4 C 01/24/20 08:00 Pulse 58 L 01/24/20 08:00 Resp 18 01/24/20 08:00 BP 134/63 01/24/20 08:00 Pulse Ox 98 01/24/20 08:00 DARIO Results - Last 24 hrs: Microbiology 01/21/20 19:02 Aerobic Blood Culture - Final Blood - Venous - Lab Draw NO GROWTH AFTER 5 DAYS Anaerobic Blood Culture - Final NO GROWTH AFTER 5 DAYS 01/21/20 18:18 Aerobic Blood Culture - Final Blood - Venous NO GROWTH AFTER 5 DAYS Anaerobic Blood Culture - Final NO GROWTH AFTER 5 DAYS Med Orders - Current: Current Medications Discontinued Medications Acetaminophen (Tylenol Extra Strength) 500 mg PO Q4H PRN PRN Reason: Pain Last Admin: 01/24/20 08:03 Dose: 500 mg Azithromycin (Zithromax) 500 mg PO NOW STA Stop: 01/21/20 18:52 Last Admin: 01/21/20 19:09 Dose: 500 mg Azithromycin (Zithromax) 250 mg PO Q24H OLIVIA Last Admin: 01/23/20 18:33 Dose: 250 mg Fluoxetine HCl (Prozac) 40 mg PO DAILY OLIVIA Last Admin: 01/24/20 08:03 Dose: 40 mg Sodium Chloride (Normal Saline) 1,000 mls @ 999 mls/hr IV STAT ONE Stop: 01/21/20 18:59 Last Admin: 01/21/20 18:23 Dose: 125 mls/hr Sodium Chloride (Normal Saline) 1,000 mls @ 999 mls/hr IV STAT ONE Stop: 01/21/20 19:23 Last Admin: 01/21/20 19:09 Dose: 999 mls/hr Ceftriaxone Sodium/Dextrose 1 (gm/ Premix) 50 mls @ 100 mls/hr IV ONETIME ONE Stop: 01/21/20 19:20 Last Admin: 01/21/20 19:09 Dose: 100 mls/hr Sodium Chloride (Normal Saline) 1,000 mls @ 125 mls/hr IV ASDIRECTED OLIVIA Last Admin: 01/22/20 09:02 Dose: 125 mls/hr Ceftriaxone Sodium 1 gm/ (Sodium Chloride) 50 mls @ 100 mls/hr IV Q24H OLIVIA Sodium Chloride (Normal Saline) 1,000 mls @ 50 mls/hr IV Q20H [facility] Last Admin: 01/24/20 03:45 Dose: 50 mls/hr Ceftriaxone Sodium/Dextrose 1 (gm/ Premix) 50 mls @ 100 mls/hr IV Q24H [facility] Last Admin: 01/23/20 18:33 Dose: 100 mls/hr Ketorolac Tromethamine (Toradol) 30 mg IVPUSH ONETIME ONE Stop: 01/21/20 18:00 Last Admin: 01/21/20 18:23 Dose: 30 mg Ondansetron HCl (Zofran) 4 mg IVPUSH Q4H PRN PRN Reason: Nausea Last Admin: 01/23/20 10:21 Dose: 4 mg Ondansetron HCl (Zofran) Confirm Administered Dose 4 mg .ROUTE .STK-MED ONE Stop: 01/23/20 10:18 Last Admin: 01/23/20 11:28 Dose: Not Given Potassium Chloride (Klor-Con M20) 40 meq PO ONETIME ONE Stop: 01/23/20 07:25 Last Admin: 01/23/20 08:56 Dose: 40 meq Sodium Chloride (Saline Flush) 10 ml FLUSH ASDIRECTED PRN PRN Reason: Keep Vein Open Last Admin: 01/21/20 18:23 Dose: 10 ml Sodium Chloride (Saline Flush) 2.5 ml FLUSH ASDIRECTED PRN PRN Reason: Keep Vein Open Last Admin: 01/21/20 18:23 Dose: 2.5 ml - Free Text/Narrative Note: I have seen and examined the patient. I have discussed findings and treatment plan with resident. I agree with the assessment and plan as outlined in the following note.
== END 2020-01-24 11:23 | disposition home or self-care (01) | DRG 871 ==
LOC: MW.ED 17:41 → MW.MS 18:45 → OBSVTOIN 23:16
PROVIDERS: ADMIT Internal Medicine; ATTEND Internal Medicine
PROC: 8E0ZXY6 Isolation (ICD-10-PCS; principal; 2020-01-24)
DX: A41.9 Sepsis, unspecified organism (principal); J18.9 Pneumonia, unspecified organism; F41.9 Anxiety disorder, unspecified; F32.9 Major depressive disorder, single episode, unspecified; F17.200 Nicotine dependence, unspecified, uncomplicated; R19.7 Diarrhea, unspecified; M25.562 Pain in left knee
CPT/HCPCS: 36415; 71045; 71045-26; 71250; 71250-26; 74176; 74176-26; 80048; 80053; 81001; 82040; 83605; 83735; 84100; 84484; 85025; 87040; 87804; 93005; 96361; 96365; 96375; 99285-25; A9270-GY; J0696; J1885; J2405; J7030; U0002

== ENCOUNTER 2020-03-06 15:34 | Emergency (ER) | payer MEDICAID ==
--- NOTE | 2020-03-06 16:12 | EDM.PDOC ---
ED HPI GENERAL MEDICAL PROBLEM - General Chief Complaint: Back Pain or Injury Stated Complaint: PT FELL A COUPLE DAYS AGO ON TAILBONE. NUMBNESS Time Seen by Provider: 03/06/20 16:12 Source of Information: Reports: Patient History Limitations: Reports: No Limitations - History of Present Illness INITIAL COMMENTS - FREE TEXT/NARRATIVE: HISTORY AND PHYSICAL: History of present illness: Patient is a 59-year-old female presents to the ED with complaint of tailbone pain. Patient states she uses a walker at home due to a bad knee and she got up and missed her footing and fell backwards landing on her bottom 2 days ago. She states she has taken tylenol and motrin without relief of symptoms. She reports her legs feel heavy. She denies any saddle anesthesia, bowel or bladder incontinence, fevers or chills. Review of systems: As per history of present illness and below otherwise all systems reviewed and negative. Past medical history: As per history of present illness and as reviewed below otherwise noncontributory. Surgical history: As per history of present illness and as reviewed below otherwise noncontributory. Social history: No reported history of drug or alcohol abuse. Family history: As per history of present illness and as reviewed below otherwise noncontributory. Physical exam: General: Patient sitting comfortably in no acute distress and nontoxic appearing HEENT: Atraumatic, normocephalic, pupils reactive, negative for conjunctival pallor or scleral icterus, mucous membranes moist, throat clear, neck supple, nontender, trachea midline. No meningeal signs. Lungs: Clear to auscultation, breath sounds equal bilaterally, chest nontender. Heart: S1S2, regular, negative for clicks, rubs, or overt murmur. Abdomen: Soft, nondistended, nontender. Negative for masses or hepatosplenomegaly. Negative for costovertebral tenderness. No rigidity, rebound , guarding. Pelvis: Stable nontender. Genitourinary: Deferred. Rectal: Deferred. Spine: No cervical, thoracic, or lumbar tenderness or paraspinal tenderness to palpation. Pain to palpation of sacrum and coccyx. Extremities: Atraumatic, negative for cords or calf pain. Neurovascular unremarkable. Neuro: Awake, alert, oriented. Cranial nerves II through XII unremarkable. Cerebellum unremarkable. Motor and sensory unremarkable throughout. Exam nonfocal. Notes: Patient ambulating on her own from bed to wheelchair without difficulty. Diagnostics: x-ray sacrum/coccyx and pelvis Therapeutics: 30mg Toradol IM Prescriptions: Tramadol (#12) Impression: Coccydynia Plan: Alternate tylenol and motrin as needed You may take tramadol for severe pain, do not take while driving or with alcohol as it may make you drowsy Follow up with primary care provider Return to ED as needed as discussed Definitive disposition and diagnosis as appropriate pending reevaluation and review of above. 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: Musculoskeletal History: Reports: None Neurological History: Reports: None Psychiatric History: Reports: Anxiety, Depression, PTSD Endocrine/Metabolic History: Reports: None Hematologic History: Reports: None Immunologic History: Reports: None Oncologic (Cancer) History: Reports: None Dermatologic History: Reports: None - Infectious Disease History Infectious Disease History: Reports: Chicken Pox - Past Surgical History Head Surgeries/Procedures: Reports: None Neurological Surgical History: Reports: Lumbar Spine Social & Family History - Family History Family Medical History: Noncontributory - Tobacco Use Smoking Status *Q: Current Every Day Smoker Years of Tobacco use: 15 Packs/Tins Daily: 0.1 - Caffeine Use Caffeine Use: Reports: Coffee - Recreational Drug Use Recreational Drug Use: No ED ROS GENERAL - Review of Systems Review Of Systems: Comprehensive ROS is negative, except as noted in HPI. ED EXAM,LOWER BACK PAIN/INJURY - Physical Exam Exam: See Below (see dictation) Course - Vital Signs Last Recorded V/S: Last Vital Signs Temp 96.6 F L 03/06/20 15:45 Pulse 91 03/06/20 17:15 Resp 17 03/06/20 17:45 BP 126/102 H 03/06/20 17:45 Pulse Ox 96 03/06/20 17:45 - Orders/Labs/Meds Meds: Medications Discontinued Medications Generic Name Dose Route Start Last Admin Trade Name Sivakumar PRN Reason Stop Dose Admin Ketorolac Tromethamine 30 mg 03/06/20 17:25 03/06/20 17:42 Toradol IM 03/06/20 17:26 30 mg ONETIME ONE Administration Departure - Departure Time of Disposition: 18:17 Disposition: Home, Self-Care 01 Condition: Good Clinical Impression: Coccydynia - Discharge Information Prescriptions: traMADol [Ultram] 50 mg PO Q6H PRN #12 tab PRN Reason: Pain (Severe 7-10) Referrals: PCP,None [Primary Care Provider] - Forms: ED Department Discharge Additional Instructions: The following information is given to patients seen in the emergency department who are being discharged to home. This information is to outline your options for follow-up care. We provide all patients seen in our emergency department with a follow-up referral. The need for follow-up, as well as the timing and circumstances, are variable depending upon the specifics of your emergency department visit. If you don't have a primary care physician on staff, we will provide you with a referral. We always advise you to contact your personal physician following an emergency department visit to inform them of the circumstance of the visit and for follow-up with them and/or the need for any referrals to a consulting specialist. The emergency department will also refer you to a specialist when appropriate. This referral assures that you have the opportunity for follow-up care with a specialist. All of these measure are taken in an effort to provide you with optimal care, which includes your follow-up. Under all circumstances we always encourage you to contact your private physician who remains a resource for coordinating your care. When calling for follow-up care, please make the office aware that this follow-up is from your recent emergency room visit. If for any reason you are refused follow-up, please contact the [facility] Emergency Department at and asked to speak to the emergency department charge nurse. [facility] [address] [place] [id number] [facility] [address] [place] [address] Alternate tylenol and motrin as needed You may take tramadol for severe pain, do not take while driving or with alcohol as it may make you drowsy Follow up with primary care provider Return to ED as needed as discussed Sepsis Event Note - Evaluation Sepsis Screening Result: No Definite Risk - Focused Exam Vital Signs: Vital Signs Temp Pulse Resp BP Pulse Ox 03/06/20 17:45 17 126/102 H 96 03/06/20 17:15 91 17 121/76 97 03/06/20 16:45 91 17 160/67 H 96 03/06/20 16:15 91 17 167/77 H 96 03/06/20 15:45 96.6 F L 106 H 19 162/102 H 97 Date Exam was Performed: 03/06/20 Time Exam was Performed: 18:22
--- NOTE | 2020-03-06 17:03 | CR ---
Sacrum and coccyx: 3 views of the sacrum and coccyx were obtained. Comparison: No previous study. Sacroiliac joints appear within normal limits. No fracture or other bony abnormality is appreciated. Vacuum phenomena is noted within the pubic symphysis with mild sclerosis. Impression: 1. Nothing acute is seen on 3 view sacrum and coccyx study. 2. Mild degenerative change within the pubic symphysis. Diagnostic code #2 This report was dictated in MDT
--- NOTE | 2020-03-06 17:03 | CR ---
Pelvis: AP view of the pelvis was obtained. Comparison: No prior pelvis exam. Joint space within the left hip is slightly narrowed medially. Joint space within the right hip is preserved. Sacroiliac joints appear within normal limits. Osteopenia seen. Nothing acute is appreciated. Impression: 1. Mild joint space narrowing with left hip. 2. Osteopenia. Nothing acute is seen on AP pelvis study. Diagnostic code #2 This report was dictated in MDT
[2020-03-06] MEDS ORDERED: Ketorolac 30 MG/ML SDV IM ONE (17:25)
== END 2020-03-06 18:32 | disposition home or self-care (01) ==
LOC: MW.ED 15:34
DX: M53.3 Sacrococcygeal disorders, not elsewhere classified (principal); F41.9 Anxiety disorder, unspecified; F32.9 Major depressive disorder, single episode, unspecified; F17.210 Nicotine dependence, cigarettes, uncomplicated; Z79.899 Other long term (current) drug therapy
CPT/HCPCS: 72170; 72220; 96372; 99283; J1885

== ENCOUNTER 2020-05-07 15:19 | Inpatient (IN) | payer MEDICAID, OTHER ==
[2020-05-07] MEDS ORDERED: Ketorolac 60 MG/2 ML SDV IM ONE (15:31)
[2020-05-07] MEDS ORDERED: Acetaminophen/HYDROcodone 325-5 MG Tab PO ONE (15:31)
--- NOTE | 2020-05-07 15:36 | EDM.PDOC ---
ED HPI GENERAL MEDICAL PROBLEM - General Chief Complaint: Back Pain or Injury Stated Complaint: BACK PAIN Time Seen by Provider: 05/07/20 15:22 - History of Present Illness INITIAL COMMENTS - FREE TEXT/NARRATIVE: Patient is a 59-year-old female she has a history of depression for which she takes fluoxetine she also has a history of chronic knee pain for which she uses a walker. She sustained a fall in February and since that time she has had pain in her sacrum and tailbone. She had an MRI of her L-spine and sacrum yesterday. She presents today because since that time she has been unable to get up due to pain in her sacrum. She denies new weakness in her legs she denies urinary or bowel incontinence. No abdominal pain no chest pain or shortness of breath. Patient reports that her boyfriend will not help her at all and so she has been unable to ambulate. She states that she called Dr. Park's office and was referred to the ER. Her pain worsens with attempted ambulation no radiation into the legs no other associated symptoms. Patient states that this is her persistent chronic pain she takes only Tylenol threes at home for this. She denies any new fall or injury. 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: Musculoskeletal History: Reports: None Neurological History: Reports: None Psychiatric History: Reports: Anxiety, Depression, PTSD Endocrine/Metabolic History: Reports: None Hematologic History: Reports: None Immunologic History: Reports: None Oncologic (Cancer) History: Reports: None Dermatologic History: Reports: None - Infectious Disease History Infectious Disease History: Reports: None - Past Surgical History Head Surgeries/Procedures: Reports: None HEENT Surgical History: Reports: None Neurological Surgical History: Reports: Lumbar Spine Social & Family History - Family History Family Medical History: Noncontributory - Tobacco Use Smoking Status *Q: Current Some Day Smoker Years of Tobacco use: 12 Packs/Tins Daily: 0.1 - Caffeine Use Caffeine Use: Reports: None - Recreational Drug Use Recreational Drug Use: No ED ROS GENERAL - Review of Systems Review Of Systems: See Below Free Text/Narrative/Comment: General: No fever. Skin: No rash. Eyes: No vision problems. ENT: No sore throat. Neck: No neck stiffness. Respiratory: No shortness of breath. Cardiac: No chest pain. Gastrointestinal: No nausea, vomiting or abdominal pain. Urinary: No dysuria. Musculoskeletal: Per HPI Neurologic: No headache. ED EXAM, GENERAL - Physical Exam Exam: See Below Free Text/Narrative:: General Appearance: No acute distress, appears comfortable Skin: No rash HEENT: Normocephalic/atraumatic, sclera anicteric, mucous membranes moist Neck: Normal range of motion Abdomen: Soft, non-tender Back: Normal Musculoskeletal: No significant lower extremity edema, sensation intact bilateral lower extremities sensation intact bilateral medial thighs global bilateral lower extremity weakness 4 out of 5 in bilateral ankles knees and hips does not respect particular myotome or dermatomal Neurologic: Awake, alert, no obvious deficits, moving all extremities Psychiatric: Appropriate, cooperative Course - Vital Signs Last Recorded V/S: Last Vital Signs Temp 97.2 F 05/07/20 15:21 Pulse 65 05/07/20 15:21 Resp 16 05/07/20 15:21 BP 143/75 H 05/07/20 15:21 Pulse Ox 95 05/07/20 15:21 - Orders/Labs/Meds Meds: Medications Discontinued Medications Generic Name Dose Route Start Last Admin Trade Name Freq PRN Reason Stop Dose Admin Hydrocodone Bitart/Acetaminophen 2 tab 05/07/20 15:31 05/07/20 15:46 [place] 325-5 Mg PO 05/07/20 15:32 2 tab ONETIME ONE Administration Ketorolac Tromethamine 30 mg 05/07/20 15:31 05/07/20 15:46 Toradol IM 05/07/20 15:32 30 mg ONETIME ONE Administration Departure - Departure Time of Disposition: 16:49 Disposition: Refer to Observation Condition: Good Clinical Impression: Ambulatory dysfunction - Discharge Information *PRESCRIPTION DRUG MONITORING PROGRAM REVIEWED*: Not Applicable *COPY OF PRESCRIPTION DRUG MONITORING REPORT IN PATIENT TRIP: Not Applicable Forms: ED Department Discharge Sepsis Event Note (ED) - Evaluation Sepsis Screening Result: No Definite Risk - Focused Exam Vital Signs: Vital Signs Temp Pulse Resp BP Pulse Ox 05/07/20 15:21 97.2 F 65 16 143/75 H 95 - Assessment/Plan Assessment:: 59-year-old female presenting with chronic sacral pain that is preventing her from ambulating. Patient uses a walker at baseline. She has no signs of cord compression or cauda equina she had an MRI yesterday that was without acutely e mergent finding. She does have some bilateral lower extremity weakness but this appears to be chronic in nature. No concern for acute infective process. No concern for other acute infective process or new injury. No indication for imaging at this time. Will trial a dose of Toradol and [place] and see if the patient can ambulate safely with a walker. If she can then discharge with scheduled NSAIDs and a very short course of [place] would not be unreasonable. If not she may require admission for physical therapy evaluation. 1645: The patient still is unable to ambulate. At this point I do not think we have a choice but to bring her in for physical therapy and further assessment. Patient discussed in full with Dr. Cisse. Will refer to observation for ambulatory difficulty and further assessment.
[2020-05-07] MEDS ORDERED: Ondansetron 4 MG/2 ML SDV IVPUSH PRN (17:38)
[2020-05-07] MEDS ORDERED: HYDROmorphone 2 MG/ML Syringe IVPUSH PRN (17:38)
[2020-05-07] MEDS ORDERED: Albuterol/Ipratropium 3.0-0.5 MG/3 ML Neb Soln NEB PRN (17:38)
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
[2020-05-07 18:32] LABS: BLOOD UREA NITROGEN,BUN 17 mg/dL (7.0-18.0); CARBON DIOXIDE,CO2 26.8 mmol/L (21.0-32.0); CHLORIDE,CL 104 mmol/L (98-107); GLUCOSE RANDOM 100 mg/dL (74-106); POTASSIUM,K 3.9 mmol/L (3.5-5.1); SODIUM,NA 140 mmol/L (136-145)
[2020-05-07] MEDS: Acetaminophen/oxyCODONE 325-5 MG Tab PO SCH (22:01)
[2020-05-08] MEDS: Acetaminophen/oxyCODONE 325-5 MG Tab PO SCH ×4 (03:53→22:27)
[2020-05-08] MEDS: FLUoxetine 20 MG Cap PO SCH (09:49)
--- NOTE | 2020-05-08 12:15 | PCM.SN.2 ---
- Free Text/Narrative Note: Seen this AM, concern of urinary retention, followed by episode of incontinence this AM, exam shows hyper-reflexia, positive baninski , increased rigidity. I called a neuro surgeon Dr Ray at [facility] for possible recommendation vs transfer, recommended MRI of cervical and Thoracic spine to evaluate for cauda equina, will obtain stat MRIs and follow up with DR Ray after MRI report is back.
[2020-05-08] MEDS: Pantoprazole 40 MG Tab.CR PO SCH (12:33)
--- NOTE | 2020-05-08 14:09 | MR ---
MRI cervical spine Technique: T2-weighted and FFE axial images were obtained from above the C2-3 disc inferiorly through the T2-3 disc. T1, T2 and fat suppressed inversion recovery sagittal images were obtained. C2-3: Posterior disc is preserved. No central canal stenosis or neural foraminal stenosis is seen. C3-4: Moderate disc space narrowing is seen. Diffuse posterior disc bulge is noted which indents the anterior thecal sac. Degenerative endplate signal change is seen. No central canal stenosis or neural foraminal stenosis is seen. C4-5: Severe disc space narrowing is seen. Posterolateral osteophytes are noted as well as diffuse posterior disc bulge which indents the anterior thecal sac. Neural foramina are patent on the right side. Minimal neural foraminal stenosis on the left side. No central canal stenosis is seen. C5-6: Fairly severe disc space narrowing is seen. Diffuse posterior disc bulge is seen as well as posterolateral disc bulging and spurring. No central canal stenosis or neural foraminal stenosis is seen. C6-7: Moderate to severe disc space narrowing is seen. Mild diffuse posterior disc bulge is noted. Posterolateral disc bulging is also noted. No central canal stenosis is seen. Neural foramina are patent. C7-T1: Posterior disc is preserved. No central canal stenosis or neural foraminal stenosis is seen. T1-2: Posterior disc is preserved. No central canal stenosis or neural foraminal stenosis is seen. T2-3: Disc space narrowing noted with degenerative endplate signal change. Mild diffuse posterior disc bulge is noted. Disc bulge slightly indents the anterior thecal sac. Neural foramina appear patent where the nerve roots exit. T3-4: Posterior disc is preserved. No central canal stenosis or neural foraminal stenosis is seen. Cervical cord shows no abnormal signal or mass. Impression: 1. Degenerative disc change as noted above. No central canal stenosis or clinically significant neural foraminal stenosis is seen. 2. No abnormal signal seen within the cervical cord. Diagnostic code #2 This report was dictated in MDT
--- NOTE | 2020-05-08 14:50 | MR ---
MRI thoracic spine Technique: T2-weighted axial images were obtained through the thoracic spine. T1, T2 and fat suppressed inversion recovery sagittal images were obtained. Comparison: No prior thoracic spine imaging. Findings: Disc space narrowing is noted at T2-3 with mild diffuse posterior disc bulge which indents the anterior thecal sac. Degenerative endplate signal change also noted at T2-3. No central canal stenosis or neural foraminal is seen at this level. Other posterior discs are maintained. No central canal stenosis or neural foraminal stenosis is seen. Thoracic cord shows no abnormal signal or mass. Impression: 1. Slight degenerative change at T2-3 as described above. 2. Other portions of the MRI study of the thoracic spine appear within normal limits. Diagnostic code #2 This report was dictated in MDT
[2020-05-08] MEDS: Cyclobenzaprine 5 MG Tab PO PRN (17:08)
--- NOTE | 2020-05-08 17:20 | PCM.PN ---
- General Info Date of Service: 05/08/20 Admission Dx/Problem (Free Text): Admission Diagnosis/Problem Admission Diagnosis/Problem Ambulatory dysfunction Subjective Update: Late note entry due to patient care. Seen at bedside again after initial assessment this AM, strength improved, able to urinate on her own no more incontinence episodes, s/o right foot pain s/p recent injury Functional Status: Reports: Urinating. Denies: Ambulating - Review of Systems General: Reports: Weakness. Denies: Fever, Fatigue, Malaise Pulmonary: Denies: Shortness of Breath, Pleuritic Chest Pain Cardiovascular: Denies: Chest Pain, Palpitations, Dyspnea on Exertion Gastrointestinal: Denies: Abdominal Pain, Constipation, Decreased Appetite Genitourinary: Denies: Dysuria, Frequency, Burning Musculoskeletal: Reports: Back Pain, Leg Pain, Foot Pain. Denies: Neck Pain, Shoulder Pain, Arm Pain, Joint Pain, Joint Swelling Skin: Denies: Cyanosis, Jaundice, Mottled Neurological: Denies: Confusion, Dizziness, Headache - Patient Data Vitals - Most Recent: Last Vital Signs Temp 36.8 C 05/08/20 14:46 Pulse 62 05/08/20 14:46 Resp 16 05/08/20 14:46 BP 138/82 05/08/20 14:46 Pulse Ox 97 05/08/20 14:46 Weight - Most Recent: 59.421 kg I&O - Last 24 Hours: Intake & Output 05/08/20 05/08/20 05/08/20 06:59 14:59 22:59 Intake Total 1078 Output Total 0 Balance 1078 Lab Results Last 24 Hours: Laboratory Results - last 24 hr 05/07/20 05/07/20 05/07/20 Range/Units 17:17 18:00 18:00 WBC 5.33 (4.0-11.0) K/uL RBC 4.80 (4.30-5.90) M/uL Hgb 13.8 (12.0-16.0) g/dL Hct 42.8 (36.0-46.0) % MCV 89.2 (80.0-98.0) fL MCH 28.8 (27.0-32.0) pg MCHC 32.2 (31.0-37.0) g/dL RDW Std Deviation 42.2 (28.0-62.0) fl RDW Coeff of [place]ila 13 (11.0-15.0) % Plt Count 306 (150-400) K/uL MPV 9.30 (7.40-12.00) fL Neut % (Auto) 61.5 (48.0-80.0) % Lymph % (Auto) 27.8 (16.0-40.0) % [place] % (Auto) 8.1 (0.0-15.0) % Eos % (Auto) 2.4 (0.0-7.0) % Baso % (Auto) 0.2 (0.0-1.5) % Neut # (Auto) 3.3 (1.4-5.7) K/uL Lymph # (Auto) 1.5 (0.6-2.4) K/uL [place] # (Auto) 0.4 (0.0-0.8) K/uL Eos # (Auto) 0.1 (0.0-0.7) K/uL Baso # (Auto) 0.0 (0.0-0.1) K/uL Nucleated RBC % 0.0 /100WBC Nucleated RBCs # 0 K/uL Sodium 140 (136-145) mmol/L Potassium 3.9 (3.5-5.1) mmol/L Chloride 104 (98-107) mmol/L Carbon Dioxide 26.8 (21.0-32.0) mmol/L BUN 17 (7.0-18.0) mg/dL Creatinine 0.7 (0.6-1.0) mg/dL Est Cr Clr Drug Dosing 72.88 mL/min Estimated GFR (MDRD) > 60.0 ml/min Glucose 100 (74-106) mg/dL Calcium 9.1 (8.5-10.1) mg/dL Phosphorus 5.0 H (2.6-4.7) mg/dL Magnesium 2.3 (1.8-2.4) mg/dL COVID-19 ([place]) NEGATIVE (NEGATIVE) Med Orders - Current: Current Medications Albuterol/Ipratropium (Duoneb 3.0-0.5 Mg/3 Ml) 3 ml NEB Q4HRRT PRN PRN Reason: Shortness Of Breath/wheezing Cyclobenzaprine HCl (Flexeril) 5 mg PO TID PRN PRN Reason: Pain Last Admin: 05/08/20 17:08 Dose: 5 mg Documented by: Fluoxetine HCl (Prozac) 40 mg PO DAILY [facility] Last Admin: 05/08/20 09:49 Dose: 40 mg Documented by: Gabapentin (Neurontin) 300 mg PO BID [facility] Ketorolac Tromethamine (Toradol) 30 mg IVPUSH Q6H PRN PRN Reason: Pain Stop: 05/13/20 10:53 Ondansetron HCl (Zofran) 4 mg IVPUSH Q4H PRN PRN Reason: Pain Oxycodone/Acetaminophen (Percocet 325-5 Mg) 1 tab PO Q6H [facility] Last Admin: 05/08/20 15:23 Dose: 1 tab Documented by: Pantoprazole Sodium (Protonix) 40 mg PO ACBREAKFAST [facility] Last Admin: 05/08/20 12:33 Dose: 40 mg Documented by: Discontinued Medications Hydrocodone Bitart/Acetaminophen ([place] 325-5 Mg) 2 tab PO ONETIME ONE Stop: 05/07/20 15:32 Last Admin: 05/07/20 15:46 Dose: 2 tab Documented by: Hydromorphone HCl (Dilaudid) 0.5 mg IVPUSH Q2H PRN PRN Reason: Pain (severe 7-10) Ketorolac Tromethamine (Toradol) 30 mg IM ONETIME ONE Stop: 05/07/20 15:32 Last Admin: 05/07/20 15:46 Dose: 30 mg Documented by: - Exam General: Alert Neck: Supple, Trachea Midline Lungs: Clear to Auscultation, Normal Respiratory Effort, Decreased Breath Sounds Cardiovascular: Regular Rate, Regular Rhythm GI/Abdominal Exam: Normal Bowel Sounds, Soft, Non-Tender Extremities: Normal Inspection, Non-Tender, No Pedal Edema, Leg Pain, Limited Range of Motion, Increased Warmth. No: Joint Swelling, Pallor, Redness Neurological: No New Focal Deficit, Normal Speech, Normal Tone, Strength Equal Bilateral (3/5, limited due to pain). No: Normal Gait Psy/Mental Status: Alert, Normal Affect, Normal Mood Sepsis Event Note - Evaluation Sepsis Screening Result: No Definite Risk - Focused Exam Vital Signs: Vital Signs Temp Pulse Resp BP Pulse Ox 05/08/20 14:46 36.8 C 62 16 138/82 97 05/08/20 11:40 36.2 C 71 16 133/65 95 05/08/20 07:25 36.4 C 59 L 14 121/58 L 96 05/08/20 07:07 35.5 C L 55 L 16 119/58 L 94 L Date Exam was Performed: 05/09/20 Time Exam was Performed: 14:13 - Problem List & Annotations (1) Ambulatory dysfunction SNOMED Code(s): 764779068 Code(s): R26.2 - DIFFICULTY IN WALKING, NOT ELSEWHERE CLASSIFIED Status: Acute Current Visit: Yes (2) Degenerative lumbar disc SNOMED Code(s): 08970924 Code(s): M51.36 - OTHER INTERVERTEBRAL DISC DEGENERATION, LUMBAR REGION Status: Acute Current Visit: Yes - Problem List Review Problem List Initiated/Reviewed/Updated: Yes - My Orders Last 24 Hours: My Active Orders 05/07/20 17:38 Ambulate [RC] ASDIRECTED Oxygen Therapy [RC] PRN Up With Assistance [RC] ASDIRECTED VTE/DVT Education [RC] PER UNIT ROUTINE Vital Signs [RC] Q4H PT Evaluation and Treatment [CONS] Routine UA W/MICROSCOPIC [URIN] Stat Albuterol/Ipratropium [DuoNeb 3.0-0.5 MG/3 ML] 3 ml NEB Q4HRRT PRN Ondansetron [Zofran] 4 mg IVPUSH Q4H PRN 05/07/20 17:39 Pulse Oximetry [RC] PRN Sequential Compression Device [OM.PC] Per Unit Routine 05/07/20 17:40 Antiembolic Devices [RC] PER UNIT ROUTINE 05/07/20 17:41 RT Aerosol Therapy [RC] ASDIRECTED 05/07/20 22:00 Acetaminophen/oxyCODONE [Percocet 325-5 MG] 1 tab PO Q6H 05/08/20 09:00 FLUoxetine [PROzac] 40 mg PO DAILY 05/08/20 21:00 Gabapentin [Neurontin] 300 mg PO BID - Plan Plan:: 59 y/o F admitted for Ambulatory dysfunction due to intractable low back pain MRI lumbar done showed severe degenerative changes in L4-L5, no spinal canal narrowing, no focal deficits noted Upon recommendation of neuro surgeon cervical and Thoracic MRI was obtained, which showed no signs of cord compression, severe degenerate changes, No need for acute Neurosurgical intervention per neuro-surgeon, he had no further recommendations for further management of patients symptoms cont Toradol for pain control start Flexeril PRN Start Gabapentin cont Percocet Regular diet cont Physical therapy SCD for DVT ppx
[2020-05-08] MEDS: Gabapentin 300 MG Cap PO SCH (20:20)
[2020-05-09] MEDS: Acetaminophen/oxyCODONE 325-5 MG Tab PO SCH ×4 (03:35→21:54)
[2020-05-09 06:26] LABS: BLOOD UREA NITROGEN,BUN 24 mg/dL (7.0-18.0); CARBON DIOXIDE,CO2 27.2 mmol/L (21.0-32.0); CHLORIDE,CL 105 mmol/L (98-107); GLUCOSE RANDOM 88 mg/dL (74-106); SODIUM,NA 140 mmol/L (136-145)
[2020-05-09] MEDS: Pantoprazole 40 MG Tab.CR PO SCH (06:40)
[2020-05-09] MEDS: Gabapentin 300 MG Cap PO SCH ×2 (09:34→20:24)
[2020-05-09] MEDS: FLUoxetine 20 MG Cap PO SCH (09:38)
[2020-05-09] MEDS: Cyclobenzaprine 5 MG Tab PO PRN ×2 (10:28→21:54)
--- NOTE | 2020-05-09 13:22 | PCM.PN ---
- General Info Date of Service: 05/09/20 Admission Dx/Problem (Free Text): Admission Diagnosis/Problem Admission Diagnosis/Problem Ambulatory dysfunction Subjective Update: Seen at bedside strength improved slightly, able to urinate on her own no more incontinence episodes, c/o right foot pain s/p recent injury - Review of Systems General: Reports: Weakness. Denies: Fever, Malaise, Chills Pulmonary: Denies: Shortness of Breath, Cough Cardiovascular: Denies: Chest Pain, Palpitations, Dyspnea on Exertion Gastrointestinal: Denies: Abdominal Pain, Constipation, Decreased Appetite Genitourinary: Denies: Dysuria, Frequency, Burning Musculoskeletal: Reports: Back Pain, Leg Pain, Foot Pain, Joint Pain. Denies: Neck Pain, Shoulder Pain Neurological: Reports: Numbness, Paresthesia, Tingling, Difficulty Walking, Weakness, Gait Disturbance. Denies: Confusion, Dizziness, Headache, Seizure, Syncope, Tremors, Trouble Speaking, Change in Speech Psychiatric: Reports: Anxiety. Denies: Confusion, Depression, Mood Lability, Agitation, Hallucinations - Patient Data Vitals - Most Recent: Last Vital Signs Temp 36.4 C 05/09/20 11:50 Pulse 59 L 05/09/20 11:50 Resp 14 05/09/20 11:50 BP 122/36 L 05/09/20 11:50 Pulse Ox 97 05/09/20 11:50 Weight - Most Recent: 59.421 kg I&O - Last 24 Hours: Intake & Output 05/08/20 05/09/20 05/09/20 22:59 06:59 14:59 Intake Total 250 500 Output Total 500 300 Balance -250 200 Lab Results Last 24 Hours: Laboratory Results - last 24 hr 05/09/20 05/09/20 Range/Units 05:23 05:23 WBC 5.56 (4.0-11.0) K/uL RBC 4.36 (4.30-5.90) M/uL Hgb 12.5 (12.0-16.0) g/dL Hct 39.6 (36.0-46.0) % MCV 90.8 (80.0-98.0) fL MCH 28.7 (27.0-32.0) pg MCHC 31.6 (31.0-37.0) g/dL RDW Std Deviation 42.9 (28.0-62.0) fl RDW Coeff of [place] 13 (11.0-15.0) % Plt Count 288 (150-400) K/uL MPV 9.70 (7.40-12.00) fL Neut % (Auto) 51.3 (48.0-80.0) % Lymph % (Auto) 34.4 (16.0-40.0) % [place] % (Auto) 10.3 (0.0-15.0) % Eos % (Auto) 3.8 (0.0-7.0) % Baso % (Auto) 0.2 (0.0-1.5) % Neut # (Auto) 2.9 (1.4-5.7) K/uL Lymph # (Auto) 1.9 (0.6-2.4) K/uL [place] # (Auto) 0.6 (0.0-0.8) K/uL Eos # (Auto) 0.2 (0.0-0.7) K/uL Baso # (Auto) 0.0 (0.0-0.1) K/uL Nucleated RBC % 0.0 /100WBC Nucleated RBCs # 0 K/uL Sodium 140 (136-145) mmol/L Potassium 4.0 (3.5-5.1) mmol/L Chloride 105 (98-107) mmol/L Carbon Dioxide 27.2 (21.0-32.0) mmol/L BUN 24 H (7.0-18.0) mg/dL Creatinine 0.9 (0.6-1.0) mg/dL Est Cr Clr Drug Dosing 56.68 mL/min Estimated GFR (MDRD) > 60.0 ml/min Glucose 88 (74-106) mg/dL Calcium 8.6 (8.5-10.1) mg/dL Phosphorus 4.4 (2.6-4.7) mg/dL Magnesium 2.2 (1.8-2.4) mg/dL Med Orders - Current: Current Medications Albuterol/Ipratropium (Duoneb 3.0-0.5 Mg/3 Ml) 3 ml NEB Q4HRRT PRN PRN Reason: Shortness Of Breath/wheezing Cyclobenzaprine HCl (Flexeril) 5 mg PO TID PRN PRN Reason: Pain Last Admin: 05/09/20 10:28 Dose: 5 mg Documented by: Fluoxetine HCl (Prozac) 40 mg PO DAILY [facility] Last Admin: 05/09/20 09:38 Dose: 40 mg Documented by: Gabapentin (Neurontin) 300 mg PO BID [facility] Last Admin: 05/09/20 09:34 Dose: 300 mg Documented by: Ketorolac Tromethamine (Toradol) 30 mg IVPUSH Q6H PRN PRN Reason: Pain Stop: 05/13/20 10:53 Ondansetron HCl (Zofran) 4 mg IVPUSH Q4H PRN PRN Reason: Pain Oxycodone/Acetaminophen (Percocet 325-5 Mg) 1 tab PO Q6H [facility] Last Admin: 05/09/20 09:35 Dose: 1 tab Documented by: Pantoprazole Sodium (Protonix) 40 mg PO ACBREAKFAST [facility] Last Admin: 05/09/20 06:40 Dose: 40 mg Documented by: Discontinued Medications Hydrocodone Bitart/Acetaminophen ([place] 325-5 Mg) 2 tab PO ONETIME ONE Stop: 05/07/20 15:32 Last Admin: 05/07/20 15:46 Dose: 2 tab Documented by: Hydromorphone HCl (Dilaudid) 0.5 mg IVPUSH Q2H PRN PRN Reason: Pain (severe 7-10) Ketorolac Tromethamine (Toradol) 30 mg IM ONETIME ONE Stop: 05/07/20 15:32 Last Admin: 05/07/20 15:46 Dose: 30 mg Documented by: - Exam General: Alert, Oriented Neck: Supple Lungs: Clear to Auscultation, Normal Respiratory Effort Cardiovascular: Regular Rate, Regular Rhythm GI/Abdominal Exam: Normal Bowel Sounds, Soft, Non-Tender Extremities: Normal Inspection, Non-Tender, No Pedal Edema, Leg Pain, Limited Range of Motion. No: Normal Range of Motion, Increased Warmth, Redness Neurological: Normal Speech, Normal Tone, Strength Equal Bilateral (3/5 imrpoving), Sensation Intact. No: Normal Gait Psy/Mental Status: Normal Affect, Normal Mood Sepsis Event Note - Evaluation Sepsis Screening Result: No Definite Risk - Focused Exam Vital Signs: Vital Signs Temp Pulse Resp BP Pulse Ox 05/09/20 11:50 36.4 C 59 L 14 122/36 L 97 05/09/20 07:47 36.3 C 55 L 14 114/38 L 95 05/09/20 03:30 36.8 C 75 17 129/62 94 L Date Exam was Performed: 05/09/20 Time Exam was Performed: 14:50 - Problem List & Annotations (1) Ambulatory dysfunction SNOMED Code(s): 256291787 Code(s): R26.2 - DIFFICULTY IN WALKING, NOT ELSEWHERE CLASSIFIED Status: Acute Current Visit: Yes (2) Degenerative lumbar disc SNOMED Code(s): 89661766 Code(s): M51.36 - OTHER INTERVERTEBRAL DISC DEGENERATION, LUMBAR REGION Status: Acute Current Visit: Yes (3) Right foot pain SNOMED Code(s): 17815496 Code(s): M79.671 - PAIN IN RIGHT FOOT Status: Acute Current Visit: Yes - Problem List Review Problem List Initiated/Reviewed/Updated: Yes - My Orders Last 24 Hours: My Active Orders 05/08/20 21:00 Gabapentin [Neurontin] 300 mg PO BID 05/09/20 12:18 Ankle 2V Rt [CR] Routine 05/09/20 12:55 Admission Status [Patient Status] [ADT] Routine - Plan Plan:: 59 y/o F admitted for Ambulatory dysfunction due to intractable low back pain MRI lumbar done showed severe degenerative changes in L4-L5, no spinal canal narrowing, no focal deficits noted Upon recommendation of neuro surgeon cervical and Thoracic MRI was obtained, which showed no signs of cord compression, severe degenerate changes, No need for acute Neurosurgical intervention per neuro-surgeon, he had no further recommendations for further management of patients symptoms obtain right foot xray cont Toradol for pain control cont Flexeril PRN muscle spasm cont Gabapentin cont Percocet Currently patient has very limited ambulation, she cannot be safely discharged to home, Patient has been started on the above listed medication regimen to help with her Neuropathy pain and muscle rigidity and back pain in order to ambulate safely with a walker, she has to be monitored for next few days to see how she tolerates these meds, she will also need continued inpatient physical therapy for next few days. Regular diet SCD for DVT ppx
--- NOTE | 2020-05-09 18:31 | CR ---
Right ankle: 3 views right ankle were obtained. Comparison: No previous ankle study. Bony structures are osteopenic. Positioning is less than optimal. No discrete fracture or other bony abnormality is appreciated. Impression: 1. Less than optimal positioning. No definite acute bony abnormality is seen. 2. If patient continues remains symptomatic, recommend repeat study in 10-14 days. Diagnostic code #2 This report was dictated in MDT
[2020-05-10] MEDS: Cyclobenzaprine 5 MG Tab PO PRN ×2 (06:31→15:48)
[2020-05-10] MEDS: Pantoprazole 40 MG Tab.CR PO SCH (06:31)
[2020-05-10] MEDS: FLUoxetine 20 MG Cap PO SCH (09:18)
[2020-05-10] MEDS: Gabapentin 300 MG Cap PO SCH ×2 (09:18→20:21)
--- NOTE | 2020-05-10 11:40 | PCM.PN ---
- General Info Date of Service: 05/10/20 Admission Dx/Problem (Free Text): Admission Diagnosis/Problem Admission Diagnosis/Problem Ambulatory dysfunction Subjective Update: Seen at bedside strength improved slightly, had an episode of incontinence, strength has improved, tingling is better - Review of Systems General: Reports: Weakness. Denies: Fever, Fatigue, Malaise Pulmonary: Denies: Shortness of Breath, Pleuritic Chest Pain Cardiovascular: Denies: Chest Pain, Palpitations Gastrointestinal: Denies: Abdominal Pain, Constipation, Decreased Appetite Genitourinary: Denies: Dysuria, Frequency, Burning Musculoskeletal: Denies: Neck Pain, Shoulder Pain, Arm Pain, Hand Pain Skin: Denies: Cyanosis, Jaundice, Mottled, Pallor, Diaphoresis - Patient Data Vitals - Most Recent: Last Vital Signs Temp 36.4 C 05/10/20 07:20 Pulse 66 05/10/20 07:20 Resp 18 05/10/20 07:20 BP 128/58 L 05/10/20 07:20 Pulse Ox 98 05/10/20 07:20 Weight - Most Recent: 59.421 kg I&O - Last 24 Hours: Intake & Output 05/09/20 05/10/20 05/10/20 22:59 06:59 14:59 Intake Total 600 650 Output Total 600 700 Balance 0 -50 Lab Results Last 24 Hours: Laboratory Results - last 24 hr 05/09/20 Range/Units 19:30 Urine Color YELLOW Urine Appearance CLEAR Urine pH 5.5 (5.0-8.0) Ur Specific [place] 1.015 (1.001-1.035) Urine Protein NEGATIVE (NEGATIVE) mg/dL Urine Glucose (UA) NEGATIVE (NEGATIVE) mg/dL Urine Ketones NEGATIVE (NEGATIVE) mg/dL Urine Occult Blood TRACE-INTACT H (NEGATIVE) Urine Nitrite NEGATIVE (NEGATIVE) Urine Bilirubin NEGATIVE (NEGATIVE) Urine Urobilinogen 0.2 (<2.0) EU/dL Ur Leukocyte Esterase NEGATIVE (NEGATIVE) Urine RBC 1-2 (0-2/HPF) Urine WBC 1-3 (0-5/HPF) Ur Epithelial Cells OCCASIONAL (NONE-FEW) Amorphous Sediment RARE (NEGATIVE) Urine Bacteria FEW (NEGATIVE) Urine Mucus RARE (NONE-MOD) Med Orders - Current: Current Medications Albuterol/Ipratropium (Duoneb 3.0-0.5 Mg/3 Ml) 3 ml NEB Q4HRRT PRN PRN Reason: Shortness Of Breath/wheezing Cyclobenzaprine HCl (Flexeril) 5 mg PO TID PRN PRN Reason: Muscle Spasm Last Admin: 05/10/20 06:31 Dose: 5 mg Documented by: Fluoxetine HCl (Prozac) 40 mg PO DAILY [facility] Last Admin: 05/10/20 09:18 Dose: 40 mg Documented by: Gabapentin (Neurontin) 300 mg PO BID [facility] Last Admin: 05/10/20 09:18 Dose: 300 mg Documented by: Ketorolac Tromethamine (Toradol) 30 mg IVPUSH Q6H PRN PRN Reason: Pain Stop: 05/13/20 10:53 Ondansetron HCl (Zofran) 4 mg IVPUSH Q4H PRN PRN Reason: Pain Oxycodone/Acetaminophen (Percocet 325-5 Mg) 1 tab PO Q6H PRN PRN Reason: Pain Pantoprazole Sodium (Protonix) 40 mg PO ACBREAKFAST [facility] Last Admin: 05/10/20 06:31 Dose: 40 mg Documented by: Discontinued Medications Hydrocodone Bitart/Acetaminophen ([place] 325-5 Mg) 2 tab PO ONETIME ONE Stop: 05/07/20 15:32 Last Admin: 05/07/20 15:46 Dose: 2 tab Documented by: Hydromorphone HCl (Dilaudid) 0.5 mg IVPUSH Q2H PRN PRN Reason: Pain (severe 7-10) Ketorolac Tromethamine (Toradol) 30 mg IM ONETIME ONE Stop: 05/07/20 15:32 Last Admin: 05/07/20 15:46 Dose: 30 mg Documented by: Oxycodone/Acetaminophen (Percocet 325-5 Mg) 1 tab PO Q6H [facility] Last Admin: 05/09/20 21:54 Dose: 1 tab Documented by: - Exam General: Alert, Oriented Lungs: Clear to Auscultation, Normal Respiratory Effort Cardiovascular: Regular Rate, Regular Rhythm GI/Abdominal Exam: Normal Bowel Sounds, Soft, Non-Tender Back Exam: Normal Inspection, Full Range of Motion Extremities: Normal Inspection, Limited Range of Motion. No: Normal Range of Motion Peripheral Pulses: 2+: Dorsalis Pedis (L), Dorsalis Pedis (R) Neurological: Normal Speech, Normal Tone, Strength Equal Bilateral, Reflexes Equal Bilateral, Sensation Intact, Other (normal DTR, normal sensation b/l legs). No: Normal Gait Psy/Mental Status: Normal Affect, Normal Mood, Anxious Sepsis Event Note - Evaluation Sepsis Screening Result: No Definite Risk - Focused Exam Vital Signs: Vital Signs Temp Pulse Resp BP Pulse Ox 05/10/20 07:20 36.4 C 66 18 128/58 L 98 05/10/20 03:30 36.9 C 60 16 105/88 95 Date Exam was Performed: 05/12/20 Time Exam was Performed: 14:22 - Problem List & Annotations (1) Ambulatory dysfunction SNOMED Code(s): 454423413 Code(s): R26.2 - DIFFICULTY IN WALKING, NOT ELSEWHERE CLASSIFIED Status: Acute Current Visit: Yes (2) Degenerative lumbar disc SNOMED Code(s): 18515411 Code(s): M51.36 - OTHER INTERVERTEBRAL DISC DEGENERATION, LUMBAR REGION Status: Acute Current Visit: Yes (3) Right foot pain SNOMED Code(s): 52751504 Code(s): M79.671 - PAIN IN RIGHT FOOT Status: Acute Current Visit: Yes - Problem List Review Problem List Initiated/Reviewed/Updated: Yes - My Orders Last 24 Hours: My Active Orders 05/09/20 12:55 Admission Status [Patient Status] [ADT] Routine 05/09/20 23:58 Acetaminophen/oxyCODONE [Percocet 325-5 MG] 1 tab PO Q6H PRN 05/10/20 11:28 Head w wo Cont [CT] Routine 05/10/20 11:30 UA W/MICROSCOPIC [URIN] Routine - Plan Plan:: 59 y/o F admitted for Ambulatory dysfunction due to intractable low back pain MRI lumbar done showed severe degenerative changes in L4-L5, no spinal canal narrowing, no focal deficits noted Upon recommendation of neuro surgeon cervical and Thoracic MRI was obtained, which showed no signs of cord compression, severe degenerate changes, No need for acute Neurosurgical intervention per neuro-surgeon, he had no further recommendations for further management of patients symptoms cont Toradol for pain control cont Flexeril PRN muscle spasm cont Gabapentin cont Percocet PRN Obtain UA Patient is being evaluated by PT, per PT today, patient may needs few more days of aggressive PT followed by outpatient PT. May have to be discharged on wheel chair with Outpatient fu to PT and Neurology for possible EMG studies. Regular diet SCD for DVT ppx
--- NOTE | 2020-05-10 14:48 | CT ---
Head CT Technique: Multiple axial sections through the brain were obtained. Intravenous contrast was not utilized. Findings: Ventricles along with basal cisterns and sulci over the convexities are within normal limits for the patient's age. No abnormal parenchymal densities are seen. No evidence of intracranial hemorrhage. No midline shift or mass-effect is appreciated. Bone window settings were reviewed which shows nothing acute within the visualized paranasal sinuses or within the visualized mastoid sinuses. No acute calvarial finding is appreciated. Impression: 1. Nothing acute is seen on noncontrast head CT study. Diagnostic code #1 This report was dictated in MDT
[2020-05-10] MEDS: Acetaminophen/oxyCODONE 325-5 MG Tab PO PRN (19:38)
[2020-05-11] MEDS: Cyclobenzaprine 5 MG Tab PO PRN ×2 (00:23→15:26)
[2020-05-11] MEDS: Acetaminophen/oxyCODONE 325-5 MG Tab PO PRN ×2 (01:41→20:31)
[2020-05-11] MEDS: Pantoprazole 40 MG Tab.CR PO SCH (06:44)
[2020-05-11] MEDS: FLUoxetine 20 MG Cap PO SCH (08:18)
[2020-05-11] MEDS: Gabapentin 300 MG Cap PO SCH ×2 (08:18→20:22)
--- NOTE | 2020-05-11 09:30 | PCM.PN ---
- General Info Date of Service: 05/11/20 - Review of Systems Systems Review Comment:: reported back pain last night - Patient Data Vitals - Most Recent: Last Vital Signs Temp 36.6 C 05/11/20 08:00 Pulse 58 L 05/11/20 08:00 Resp 18 05/11/20 08:00 BP 115/53 L 05/11/20 08:00 Pulse Ox 95 05/11/20 08:00 Weight - Most Recent: 59.421 kg I&O - Last 24 Hours: Intake & Output 05/10/20 05/11/20 05/11/20 22:59 06:59 14:59 Intake Total 840 1000 Output Total 900 1200 Balance -60 -200 Lab Results Last 24 Hours: Laboratory Results - last 24 hr 05/10/20 05/10/20 Range/Units 13:34 13:56 POC Glucose 106 (60-110) mg/dL Urine Color YELLOW Urine Appearance CLEAR Urine pH 6.5 (5.0-8.0) Ur Specific [place] 1.010 (1.001-1.035) Urine Protein NEGATIVE (NEGATIVE) mg/dL Urine Glucose (UA) NEGATIVE (NEGATIVE) mg/dL Urine Ketones NEGATIVE (NEGATIVE) mg/dL Urine Occult Blood NEGATIVE (NEGATIVE) Urine Nitrite NEGATIVE (NEGATIVE) Urine Bilirubin NEGATIVE (NEGATIVE) Urine Urobilinogen 0.2 (<2.0) EU/dL Ur Leukocyte Esterase NEGATIVE (NEGATIVE) Urine RBC 0-1 (0-2/HPF) Urine WBC 0-1 (0-5/HPF) Ur Epithelial Cells RARE (NONE-FEW) Urine Bacteria RARE (NEGATIVE) Med Orders - Current: Current Medications Albuterol/Ipratropium (Duoneb 3.0-0.5 Mg/3 Ml) 3 ml NEB Q4HRRT PRN PRN Reason: Shortness Of Breath/wheezing Cyclobenzaprine HCl (Flexeril) 5 mg PO TID PRN PRN Reason: Muscle Spasm Last Admin: 05/11/20 00:23 Dose: 5 mg Documented by: Fluoxetine HCl (Prozac) 40 mg PO DAILY [facility] Last Admin: 05/11/20 08:18 Dose: 40 mg Documented by: Gabapentin (Neurontin) 300 mg PO BID [facility] Last Admin: 05/11/20 08:18 Dose: 300 mg Documented by: Ketorolac Tromethamine (Toradol) 30 mg IVPUSH Q6H PRN PRN Reason: Pain Stop: 05/13/20 10:53 Ondansetron HCl (Zofran) 4 mg IVPUSH Q4H PRN PRN Reason: Pain Oxycodone/Acetaminophen (Percocet 325-5 Mg) 1 tab PO Q6H PRN PRN Reason: Pain Last Admin: 05/11/20 01:41 Dose: 1 tab Documented by: Pantoprazole Sodium (Protonix) 40 mg PO ACBREAKFAST [facility] Last Admin: 05/11/20 06:44 Dose: 40 mg Documented by: Discontinued Medications Hydrocodone Bitart/Acetaminophen ([place] 325-5 Mg) 2 tab PO ONETIME ONE Stop: 05/07/20 15:32 Last Admin: 05/07/20 15:46 Dose: 2 tab Documented by: Hydromorphone HCl (Dilaudid) 0.5 mg IVPUSH Q2H PRN PRN Reason: Pain (severe 7-10) Ketorolac Tromethamine (Toradol) 30 mg IM ONETIME ONE Stop: 05/07/20 15:32 Last Admin: 05/07/20 15:46 Dose: 30 mg Documented by: Oxycodone/Acetaminophen (Percocet 325-5 Mg) 1 tab PO Q6H [facility] Last Admin: 05/09/20 21:54 Dose: 1 tab Documented by: - Exam General: Alert, Oriented HEENT: Mucous Membr. Moist/[place] Neck: Supple Lungs: Clear to Auscultation, Normal Respiratory Effort Cardiovascular: Regular Rate, Regular Rhythm GI/Abdominal Exam: Soft, Non-Tender, No Distention Extremities: Non-Tender, No Pedal Edema Skin: Warm, Dry, Intact Sepsis Event Note - Evaluation Sepsis Screening Result: No Definite Risk - Focused Exam Vital Signs: Vital Signs Temp Pulse Resp BP Pulse Ox 05/11/20 08:00 36.6 C 58 L 18 115/53 L 95 05/11/20 03:00 36.9 C 65 16 132/62 95 05/10/20 23:00 36.8 C 69 16 124/67 97 Date Exam was Performed: 05/11/20 Time Exam was Performed: 09:25 - Problem List Review Problem List Initiated/Reviewed/Updated: Yes - Plan Plan:: 59 y/o F admitted for Ambulatory dysfunction due to intractable low back pain Lower back pain: continue toradol, flexeril, Gabapenin, and percocet prn PT consulted
[2020-05-12] MEDS: Pantoprazole 40 MG Tab.CR PO SCH (07:00)
--- NOTE | 2020-05-12 08:35 | PCM.PN ---
- General Info Date of Service: 05/12/20 - Review of Systems Systems Review Comment:: patient reports back pain comes and goes - Patient Data Vitals - Most Recent: Last Vital Signs Temp 36.6 C 05/12/20 04:00 Pulse 69 05/12/20 04:00 Resp 16 05/12/20 04:00 BP 118/67 05/12/20 04:00 Pulse Ox 95 05/12/20 04:00 Weight - Most Recent: 59.421 kg I&O - Last 24 Hours: Intake & Output 05/11/20 05/12/20 05/12/20 22:59 06:59 14:59 Intake Total 600 800 Output Total 820 Balance -220 800 Med Orders - Current: Current Medications Albuterol/Ipratropium (Duoneb 3.0-0.5 Mg/3 Ml) 3 ml NEB Q4HRRT PRN PRN Reason: Shortness Of Breath/wheezing Cyclobenzaprine HCl (Flexeril) 5 mg PO TID PRN PRN Reason: Muscle Spasm Last Admin: 05/11/20 15:26 Dose: 5 mg Documented by: Fluoxetine HCl (Prozac) 40 mg PO DAILY [facility] Last Admin: 05/11/20 08:18 Dose: 40 mg Documented by: Gabapentin (Neurontin) 300 mg PO BID [facility] Last Admin: 05/11/20 20:22 Dose: 300 mg Documented by: Ketorolac Tromethamine (Toradol) 30 mg IVPUSH Q6H PRN PRN Reason: Pain Stop: 05/13/20 10:53 Ondansetron HCl (Zofran) 4 mg IVPUSH Q4H PRN PRN Reason: Pain Oxycodone/Acetaminophen (Percocet 325-5 Mg) 1 tab PO Q6H PRN PRN Reason: Pain Last Admin: 05/11/20 20:31 Dose: 1 tab Documented by: Pantoprazole Sodium (Protonix) 40 mg PO ACBREAKFAST [facility] Last Admin: 05/12/20 07:00 Dose: 40 mg Documented by: Discontinued Medications Hydrocodone Bitart/Acetaminophen ([place] 325-5 Mg) 2 tab PO ONETIME ONE Stop: 05/07/20 15:32 Last Admin: 05/07/20 15:46 Dose: 2 tab Documented by: Hydromorphone HCl (Dilaudid) 0.5 mg IVPUSH Q2H PRN PRN Reason: Pain (severe 7-10) Ketorolac Tromethamine (Toradol) 30 mg IM ONETIME ONE Stop: 05/07/20 15:32 Last Admin: 05/07/20 15:46 Dose: 30 mg Documented by: Oxycodone/Acetaminophen (Percocet 325-5 Mg) 1 tab PO Q6H [facility] Last Admin: 05/09/20 21:54 Dose: 1 tab Documented by: - Exam General: Alert, Oriented Neck: Supple Lungs: Clear to Auscultation, Normal Respiratory Effort Cardiovascular: Regular Rate, Regular Rhythm GI/Abdominal Exam: Soft, Non-Tender, No Distention Extremities: Non-Tender, No Pedal Edema Skin: Warm, Dry, Intact Neurological: No New Focal Deficit Sepsis Event Note - Evaluation Sepsis Screening Result: No Definite Risk - Focused Exam Vital Signs: Vital Signs Temp Pulse Resp BP Pulse Ox 05/12/20 04:00 36.6 C 69 16 118/67 95 05/11/20 23:59 36.9 C 70 16 128/61 96 Date Exam was Performed: 05/12/20 Time Exam was Performed: 08:33 - Problem List Review Problem List Initiated/Reviewed/Updated: Yes - Plan Plan:: 59 y/o F admitted for Ambulatory dysfunction due to intractable low back pain Lower back pain: continue toradol, flexeril, Gabapenin, and percocet prn PT consulted Dispo: pending improvement in mobility and or placement.
[2020-05-12] MEDS: FLUoxetine 20 MG Cap PO SCH (08:58)
[2020-05-12] MEDS: Cyclobenzaprine 5 MG Tab PO PRN (08:58)
[2020-05-12] MEDS: Gabapentin 300 MG Cap PO SCH ×2 (08:58→21:30)
[2020-05-12] MEDS: Acetaminophen/oxyCODONE 325-5 MG Tab PO PRN (21:30)
[2020-05-13] MEDS: Acetaminophen/oxyCODONE 325-5 MG Tab PO PRN ×2 (06:25→20:23)
[2020-05-13] MEDS: Pantoprazole 40 MG Tab.CR PO SCH (06:29)
[2020-05-13] MEDS: Gabapentin 300 MG Cap PO SCH ×2 (08:55→20:23)
[2020-05-13] MEDS: Ketorolac 30 MG/ML SDV IVPUSH PRN ×2 (08:55→18:12)
[2020-05-13] MEDS: FLUoxetine 20 MG Cap PO SCH (09:01)
--- NOTE | 2020-05-13 09:25 | PCM.PN ---
- General Info Date of Service: 05/13/20 Admission Dx/Problem (Free Text): Admission Diagnosis/Problem Admission Diagnosis/Problem Ambulatory dysfunction Subjective Update: Feeling better today, pain is elevated, but just received some Toradol. Feels a little loopy from medications and didn't sleep well. She denies chest pain or SOB. Had incontinence issue overnight. Reports transfers are getting easier with slider board she is ambulating with assist of 1-2 and walker. Functional Status: Reports: Pain Controlled, Tolerating Diet, Ambulating, Urinating - Review of Systems Pulmonary: Reports: No Symptoms. Denies: Shortness of Breath Cardiovascular: Reports: No Symptoms. Denies: Chest Pain Gastrointestinal: Reports: No Symptoms. Denies: Abdominal Pain, Nausea, Vomiting Genitourinary: Reports: Incontinence (intermittently). Denies: Dysuria Musculoskeletal: Reports: Back Pain Skin: Reports: No Symptoms Neurological: Reports: Difficulty Walking - Patient Data Vitals - Most Recent: Last Vital Signs Temp 98.7 F 05/13/20 08:00 Pulse 70 05/13/20 08:00 Resp 18 05/13/20 08:00 BP 123/70 05/13/20 08:00 Pulse Ox 95 05/13/20 08:00 Weight - Most Recent: 59.421 kg I&O - Last 24 Hours: Intake & Output 05/12/20 05/13/20 05/13/20 22:59 06:59 14:59 Intake Total 440 1050 Output Total 500 1800 Balance -60 -750 Med Orders - Current: Current Medications Albuterol/Ipratropium (Duoneb 3.0-0.5 Mg/3 Ml) 3 ml NEB Q4HRRT PRN PRN Reason: Shortness Of Breath/wheezing Cyclobenzaprine HCl (Flexeril) 5 mg PO TID PRN PRN Reason: Muscle Spasm Last Admin: 05/12/20 08:58 Dose: 5 mg Documented by: Fluoxetine HCl (Prozac) 40 mg PO DAILY [facility] Last Admin: 05/13/20 09:01 Dose: 40 mg Documented by: Gabapentin (Neurontin) 300 mg PO BID [facility] Last Admin: 05/13/20 08:55 Dose: 300 mg Documented by: Ketorolac Tromethamine (Toradol) 30 mg IVPUSH Q6H PRN PRN Reason: Pain Stop: 05/13/20 10:53 Last Admin: 05/13/20 08:55 Dose: 30 mg Documented by: Ondansetron HCl (Zofran) 4 mg IVPUSH Q4H PRN PRN Reason: Pain Oxycodone/Acetaminophen (Percocet 325-5 Mg) 1 tab PO Q6H PRN PRN Reason: Pain Last Admin: 05/13/20 06:25 Dose: 1 tab Documented by: Pantoprazole Sodium (Protonix) 40 mg PO ACBREAKFAST [facility] [place] Last Admin: 05/13/20 06:29 Dose: 40 mg Documented by: Discontinued Medications Hydrocodone Bitart/Acetaminophen ([place] 325-5 Mg) 2 tab PO ONETIME ONE Stop: 05/07/20 15:32 Last Admin: 05/07/20 15:46 Dose: 2 tab Documented by: Hydromorphone HCl (Dilaudid) 0.5 mg IVPUSH Q2H PRN PRN Reason: Pain (severe 7-10) Ketorolac Tromethamine (Toradol) 30 mg IM ONETIME ONE Stop: 05/07/20 15:32 Last Admin: 05/07/20 15:46 Dose: 30 mg Documented by: Oxycodone/Acetaminophen (Percocet 325-5 Mg) 1 tab PO Q6H [facility] Last Admin: 05/09/20 21:54 Dose: 1 tab Documented by: - Exam General: Alert, Oriented, Cooperative, No Acute Distress Lungs: Clear to Auscultation, Normal Respiratory Effort Cardiovascular: Regular Rate, Regular Rhythm GI/Abdominal Exam: Normal Bowel Sounds, Soft, Non-Tender Extremities: Normal Inspection, Normal Range of Motion, Non-Tender, No Pedal Edema, Other (able to move and flex legswhile in bed.) Neurological: No: Normal Tone (spasticity noted and bilaterally upper arms with some weakness to L hand, all chronic) Psy/Mental Status: Alert, Normal Affect, Normal Mood Sepsis Event Note - Evaluation Sepsis Screening Result: No Definite Risk - Focused Exam Vital Signs: Vital Signs Temp Pulse Resp BP Pulse Ox 05/13/20 08:00 98.7 F 70 18 123/70 95 05/13/20 03:34 97.9 F 80 16 119/64 95 05/13/20 00:00 98.7 F 89 17 124/74 96 Date Exam was Performed: 05/13/20 Time Exam was Performed: 11:48 - Problem List & Annotations (1) Ambulatory dysfunction SNOMED Code(s): 785640139 Code(s): R26.2 - DIFFICULTY IN WALKING, NOT ELSEWHERE CLASSIFIED Status: Acute Current Visit: Yes (2) Degenerative lumbar disc SNOMED Code(s): 90365496 Code(s): M51.36 - OTHER INTERVERTEBRAL DISC DEGENERATION, LUMBAR REGION Status: Acute Current Visit: Yes - Problem List Review Problem List Initiated/Reviewed/Updated: Yes - My Orders Last 24 Hours: My Active Orders 05/13/20 08:57 OT Evaluation and Treatment [CONS] Routine - Plan Plan:: 59 y/o F admitted for Ambulatory dysfunction due to intractable low back pain 1. Ambulatory dysfunction: - Urgent neurosurgical concerns ruled out with MRI of spine - PT/OT consulted, continue working with them to establish safe transfers - Unwilling to go to snf and does not have [place] medical assistance, working with billing department - Consulted Dr Moreland today for Neurology consult, she will see tomorrow. I appreciate her assistance with this patient 2. Acute on chronic lumbar back pain - Continue Percocet, try add in Toradol to help with pain as well - Flexeril for spasming PRN - PT/OT - Continue Gabapentin 3. Depression - Continue Prozac VTE prophylaxis: SCDs Dispo: 2-3 days pending improvement
[2020-05-13] MEDS: Cyclobenzaprine 5 MG Tab PO PRN (18:11)
[2020-05-14] MEDS: Ketorolac 30 MG/ML SDV IVPUSH PRN (01:03)
[2020-05-14] MEDS: Pantoprazole 40 MG Tab.CR PO SCH (06:39)
[2020-05-14] MEDS: Acetaminophen/oxyCODONE 325-5 MG Tab PO PRN ×2 (07:20→21:00)
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
[2020-05-14] MEDS: Gabapentin 300 MG Cap PO SCH ×2 (09:38→21:00)
[2020-05-14] MEDS: FLUoxetine 20 MG Cap PO SCH (09:38)
--- NOTE | 2020-05-14 10:33 | PCM.PN ---
- General Info Date of Service: 05/14/20 Admission Dx/Problem (Free Text): Admission Diagnosis/Problem Admission Diagnosis/Problem Ambulatory dysfunction Subjective Update: Continues to improve with ambulation, concerned about R hand. Needs OT evaluation still. No other concerns. Functional Status: Reports: Pain Controlled, Tolerating Diet, Ambulating, Urinating - Review of Systems General: Reports: No Symptoms. Denies: Fever, Weakness, Fatigue Pulmonary: Reports: No Symptoms. Denies: Shortness of Breath Cardiovascular: Reports: No Symptoms. Denies: Chest Pain Gastrointestinal: Reports: No Symptoms. Denies: Abdominal Pain, Nausea, Vomiting Genitourinary: Reports: No Symptoms Musculoskeletal: Reports: Other (tailbone pain worse with sitting.) Neurological: Reports: No Symptoms Psychiatric: Reports: No Symptoms - Patient Data Vitals - Most Recent: Last Vital Signs Temp 98.5 F 05/14/20 07:50 Pulse 71 05/14/20 07:50 Resp 18 05/14/20 07:50 BP 123/78 05/14/20 07:50 Pulse Ox 97 05/14/20 07:50 Weight - Most Recent: 59.421 kg I&O - Last 24 Hours: Intake & Output 05/13/20 05/14/20 05/14/20 22:59 06:59 14:59 Intake Total 580 1440 Output Total 1200 Balance 580 240 Med Orders - Current: Current Medications Albuterol/Ipratropium (Duoneb 3.0-0.5 Mg/3 Ml) 3 ml NEB Q4HRRT PRN PRN Reason: Shortness Of Breath/wheezing Cyclobenzaprine HCl (Flexeril) 5 mg PO TID PRN PRN Reason: Muscle Spasm Last Admin: 05/13/20 18:11 Dose: 5 mg Documented by: Fluoxetine HCl (Prozac) 40 mg PO DAILY [facility] Last Admin: 05/14/20 09:38 Dose: 40 mg Documented by: Gabapentin (Neurontin) 300 mg PO BID [facility] Last Admin: 05/14/20 09:38 Dose: 300 mg Documented by: Ketorolac Tromethamine (Toradol) 30 mg IVPUSH Q6H PRN PRN Reason: Pain Last Admin: 05/14/20 01:03 Dose: 30 mg Documented by: Ondansetron HCl (Zofran) 4 mg IVPUSH Q4H PRN PRN Reason: Pain Oxycodone/Acetaminophen (Percocet 325-5 Mg) 1 tab PO Q6H PRN PRN Reason: Pain Last Admin: 05/14/20 07:20 Dose: 1 tab Documented by: Pantoprazole Sodium (Protonix) 40 mg PO ACBREAKFAST [facility] Last Admin: 05/14/20 06:39 Dose: 40 mg Documented by: Discontinued Medications Hydrocodone Bitart/Acetaminophen ([place] 325-5 Mg) 2 tab PO ONETIME ONE Stop: 05/07/20 15:32 Last Admin: 05/07/20 15:46 Dose: 2 tab Documented by: Hydromorphone HCl (Dilaudid) 0.5 mg IVPUSH Q2H PRN PRN Reason: Pain (severe 7-10) Ketorolac Tromethamine (Toradol) 30 mg IM ONETIME ONE Stop: 05/07/20 15:32 Last Admin: 05/07/20 15:46 Dose: 30 mg Documented by: Oxycodone/Acetaminophen (Percocet 325-5 Mg) 1 tab PO Q6H [facility] Last Admin: 05/09/20 21:54 Dose: 1 tab Documented by: - Exam General: Alert, Oriented, Cooperative, No Acute Distress Lungs: Clear to Auscultation, Normal Respiratory Effort Cardiovascular: Regular Rate, Regular Rhythm GI/Abdominal Exam: Normal Bowel Sounds, Soft, Non-Tender Extremities: Normal Inspection, Normal Range of Motion, Non-Tender Skin: Warm, Dry Psy/Mental Status: Alert, Normal Affect, Normal Mood Sepsis Event Note - Evaluation Sepsis Screening Result: No Definite Risk - Focused Exam Vital Signs: Vital Signs Temp Pulse Resp BP Pulse Ox 05/14/20 07:50 98.5 F 71 18 123/78 97 05/14/20 06:40 98.6 F 68 16 145/74 H 97 05/14/20 01:05 97.8 F 75 16 124/59 L 95 Date Exam was Performed: 05/14/20 Time Exam was Performed: 10:28 - Problem List & Annotations (1) Ambulatory dysfunction SNOMED Code(s): 362490937 Code(s): R26.2 - DIFFICULTY IN WALKING, NOT ELSEWHERE CLASSIFIED Status: Acute Current Visit: Yes (2) Degenerative lumbar disc SNOMED Code(s): 54416218 Code(s): M51.36 - OTHER INTERVERTEBRAL DISC DEGENERATION, LUMBAR REGION Status: Acute Current Visit: Yes - Problem List Review Problem List Initiated/Reviewed/Updated: Yes - My Orders Last 24 Hours: My Active Orders 05/13/20 10:42 Consult to Physician [CONS] Routine 05/13/20 10:43 Notify Provider Consults [RC] ASDIRECTED 05/14/20 09:30 COPPER, SERUM [REF] Routine HIV12 AG/AB 4TH GEN [CHEM] Routine HTLV-I/II ANTIBODIES, QUAL [REF] Routine VITAMIN B12 [CHEM] Routine VITAMIN E, SERUM [REF] Routine - Plan Plan:: 59 y/o F admitted for Ambulatory dysfunction due to intractable low back pain 1. Ambulatory dysfunction: - Urgent neurosurgical concerns ruled out with MRI of entired spine - PT/OT consulted, continue working with them to establish safe transfers - Consulted Dr Moreland today for Neurology consult. I appreciate her assistance with this patient. Recommended labwork obtained, will set up follow up appointment 2. Acute on chronic lumbar back pain - Continue Percocet, try add in Toradol to help with pain as well - Flexeril for spasming PRN - PT/OT - Continue Gabapentin 3. Depression - Continue Prozac VTE prophylaxis: SCDs Dispo: 2-3 days pending improvement
[2020-05-15] MEDS: Cyclobenzaprine 5 MG Tab PO PRN ×2 (02:03→13:36)
[2020-05-15] MEDS: Ketorolac 30 MG/ML SDV IVPUSH PRN (02:52)
[2020-05-15] MEDS: Pantoprazole 40 MG Tab.CR PO SCH (06:32)
[2020-05-15] MEDS: FLUoxetine 20 MG Cap PO SCH (08:37)
[2020-05-15] MEDS: Gabapentin 300 MG Cap PO SCH ×2 (08:37→20:15)
[2020-05-15] MEDS: Acetaminophen/oxyCODONE 325-5 MG Tab PO PRN ×2 (08:37→18:19)
--- NOTE | 2020-05-15 10:12 | PCM.PN ---
- General Info Date of Service: 05/15/20 Admission Dx/Problem (Free Text): Admission Diagnosis/Problem Admission Diagnosis/Problem Ambulatory dysfunction Subjective Update: Doing better today. transferring is improved. No concerns. - Patient Data Vitals - Most Recent: Last Vital Signs Temp 97.8 F 05/15/20 08:00 Pulse 61 05/15/20 08:00 Resp 17 05/15/20 08:00 BP 126/58 L 05/15/20 08:00 Pulse Ox 95 05/15/20 08:00 Weight - Most Recent: 59.421 kg I&O - Last 24 Hours: Intake & Output 05/14/20 05/15/20 05/15/20 22:59 06:59 14:59 Intake Total 1040 1200 Output Total 980 Balance 1040 220 Lab Results Last 24 Hours: Laboratory Results - last 24 hr 05/14/20 05/14/20 Range/Units 09:30 09:30 Vitamin B12 314 (193-986) pg/mL HIV 1&2 Ag/Ab, 4th Gen < 0.1 (<1.0) INDEX Med Orders - Current: Current Medications Albuterol/Ipratropium (Duoneb 3.0-0.5 Mg/3 Ml) 3 ml NEB Q4HRRT PRN PRN Reason: Shortness Of Breath/wheezing Cyclobenzaprine HCl (Flexeril) 5 mg PO TID PRN PRN Reason: Muscle Spasm Last Admin: 05/15/20 02:03 Dose: 5 mg Documented by: Fluoxetine HCl (Prozac) 40 mg PO DAILY [facility] Last Admin: 05/15/20 08:37 Dose: 40 mg Documented by: Gabapentin (Neurontin) 300 mg PO BID [facility] Last Admin: 05/15/20 08:37 Dose: 300 mg Documented by: Ibuprofen (Motrin) 400 mg PO Q6H PRN PRN Reason: Pain Ondansetron HCl (Zofran) 4 mg IVPUSH Q4H PRN PRN Reason: Pain Oxycodone/Acetaminophen (Percocet 325-5 Mg) 1 tab PO Q6H PRN PRN Reason: Pain Last Admin: 05/15/20 08:37 Dose: 1 tab Documented by: Pantoprazole Sodium (Protonix) 40 mg PO ACBREAKFAST [facility] Last Admin: 05/15/20 06:32 Dose: 40 mg Documented by: Discontinued Medications Hydrocodone Bitart/Acetaminophen ([place] 325-5 Mg) 2 tab PO ONETIME ONE Stop: 05/07/20 15:32 Last Admin: 05/07/20 15:46 Dose: 2 tab Documented by: Hydromorphone HCl (Dilaudid) 0.5 mg IVPUSH Q2H PRN PRN Reason: Pain (severe 7-10) Ketorolac Tromethamine (Toradol) 30 mg IM ONETIME ONE Stop: 05/07/20 15:32 Last Admin: 05/07/20 15:46 Dose: 30 mg Documented by: Ketorolac Tromethamine (Toradol) 30 mg IVPUSH Q6H PRN PRN Reason: Pain Last Admin: 05/15/20 02:52 Dose: 30 mg Documented by: Oxycodone/Acetaminophen (Percocet 325-5 Mg) 1 tab PO Q6H [facility] Last Admin: 05/09/20 21:54 Dose: 1 tab Documented by: - Exam General: Alert, Oriented, Cooperative, No Acute Distress Lungs: Clear to Auscultation, Normal Respiratory Effort Cardiovascular: Regular Rate, Regular Rhythm GI/Abdominal Exam: Normal Bowel Sounds, Soft, Non-Tender Extremities: Normal Inspection, Normal Range of Motion, Non-Tender, No Pedal Edema Neurological: No New Focal Deficit Psy/Mental Status: Alert, Normal Affect, Normal Mood Sepsis Event Note - Evaluation Sepsis Screening Result: No Definite Risk - Focused Exam Vital Signs: Vital Signs Temp Pulse Resp BP BP Pulse Ox 05/15/20 08:00 97.8 F 61 17 126/58 L 95 05/15/20 04:00 98.1 F 73 17 135/61 94 L 05/14/20 23:46 98.6 F 84 19 116/73 94 L Date Exam was Performed: 05/15/20 Time Exam was Performed: 10:38 - Problem List & Annotations (1) Ambulatory dysfunction SNOMED Code(s): 743059207 Code(s): R26.2 - DIFFICULTY IN WALKING, NOT ELSEWHERE CLASSIFIED Status: Acute Current Visit: Yes (2) Degenerative lumbar disc SNOMED Code(s): 88681836 Code(s): M51.36 - OTHER INTERVERTEBRAL DISC DEGENERATION, LUMBAR REGION Status: Acute Current Visit: Yes - Problem List Review Problem List Initiated/Reviewed/Updated: Yes - My Orders Last 24 Hours: My Active Orders 05/14/20 09:30 COPPER, SERUM [REF] Routine HTLV-I/II ANTIBODIES, QUAL [REF] Routine VITAMIN E, SERUM [REF] Routine 05/15/20 07:56 Ibuprofen [Motrin] 400 mg PO Q6H PRN - Plan Plan:: 59 y/o F admitted for Ambulatory dysfunction due to intractable low back pain 1. Ambulatory dysfunction: - Urgent neurosurgical concerns ruled out with MRI of entire spine - PT/OT consulted, continue working with them to establish safe transfers - Consulted Dr Mroeland today for Neurology consult. I appreciate her assistance with this patient. Recommended labwork obtained, will set up follow up appointment 2. Acute on chronic lumbar back pain - Continue Percocet, try add in Toradol to help with pain as well - Flexeril for spasming PRN - PT/OT - Continue Gabapentin 3. Depression - Continue Prozac VTE prophylaxis: SCDs Dispo: needs to get slide board, given her contacts for this, like discharge in am.
[2020-05-15] MEDS: Ibuprofen 400 MG Tab PO PRN ×2 (13:36→20:15)
[2020-05-16] MEDS: Acetaminophen/oxyCODONE 325-5 MG Tab PO PRN ×2 (01:21→11:35)
[2020-05-16] MEDS: Cyclobenzaprine 5 MG Tab PO PRN (05:04)
[2020-05-16] MEDS: Pantoprazole 40 MG Tab.CR PO SCH (07:12)
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
[2020-05-16] MEDS: Ibuprofen 400 MG Tab PO PRN (10:00)
[2020-05-16] MEDS: Gabapentin 300 MG Cap PO SCH (10:00)
[2020-05-16] MEDS: FLUoxetine 20 MG Cap PO SCH (10:00)
== END 2020-05-16 12:15 | disposition home or self-care (01) | DRG 552 ==
LOC: MW.ED 15:19 → MW.MS 16:49 → OBSVTOIN 16:49 → MW.MS 05-09 13:53
PROVIDERS: ADMIT Student in an Organized Health Care Education/Training Program; ATTEND Student in an Organized Health Care Education/Training Program
DX: M54.5 Low back pain (principal); R26.2 Difficulty in walking, not elsewhere classified; M51.36 Other intervertebral disc degeneration, lumbar region; R29.898 Other symptoms and signs involving the musculoskeletal system; G89.29 Other chronic pain; F32.9 Major depressive disorder, single episode, unspecified; F43.10 Post-traumatic stress disorder, unspecified; F17.200 Nicotine dependence, unspecified, uncomplicated; F41.9 Anxiety disorder, unspecified; M79.671 Pain in right foot; Z20.828 Contact with and (suspected) exposure to other viral communicable diseases
CPT/HCPCS: 36415; 70450; 70450-26; 72141; 72141-26; 72146; 72146-26; 73600-26-RT; 73600-RT; 80048; 81001; 82525; 82607; 82962; 83735; 84100; 84446; 85025; 86790; 87389; 96372; 97110-GO; 97110-GP; 97162-GP; 97165-GO; 97530-GP; 99284; A9270-GY; G0378; J1885; U0002

== ENCOUNTER 2020-05-24 02:20 | Emergency (ER) | payer MEDICAID ==
[2020-05-24] MEDS ORDERED: Cyclobenzaprine 10 MG Tab PO ONE (02:44)
[2020-05-24] MEDS ORDERED: Ketorolac 15 MG/ML SDV IVPUSH STA (02:44)
[2020-05-24] MEDS ORDERED: Gabapentin 300 MG Cap PO ONE (02:44)
[2020-05-24] MEDS ORDERED: HYDROmorphone 1 MG/ML Syringe IVPUSH ONE (02:45)
[2020-05-24] MEDS ORDERED: Ondansetron 4 MG/2 ML SDV IVPUSH ONE (02:46)
--- NOTE | 2020-05-24 03:01 | EDM.PDOC ---
ED HPI GENERAL MEDICAL PROBLEM - General Chief Complaint: Back Pain or Injury Stated Complaint: LOWER BACK PAIN Time Seen by Provider: 05/24/20 02:30 - History of Present Illness INITIAL COMMENTS - FREE TEXT/NARRATIVE: HISTORY AND PHYSICAL: History of present illness: This is a 59-year-old female who presents the ER today complaining of severe pain to her coccyx. Patient reports that she had injury approximately 4 months ago and has been having chronic pain since. Patient was seen and evaluated in our ER approximately 2 weeks ago and was admitted to the hospital for an approximate 1 week course where she was worked up. Patient had MRI of her back which has not revealed any significant pathology that would require emergent intervention. Upon release from the hospital the patient was discharged on Neurontin, Flexeril and Percocet. Patient reports that she has not been able to get her prescriptions filled and that she has been in pain at home for the last week. Patient reports that the pain has not changed since she has left the hospital. Patient reports no recent trauma or falls. Patient reports that she has not been able to get her medications because the pharmacy that the medications were sent to did not deliver to her residence. Patient reports that she currently also does not have the money to get the medications even if they were able to deliver to her tomorrow. Patient reports that the medication cost would roughly $46 which she had at the time however she does not have that anymore. Patient was requesting admission to the hospital until Wednesday when she receives her "'s pension ". Patient denies any recent fevers, shakes, chills, nausea, vomiting, diarrhea, dysuria, frequency, urgency, chest pain, shortness of breath. Patient denies any recent falls or trauma. Patient reports that on a good day, she is able to ambulate with her walker however without the pain medications she reports that she has been having extremely difficult time getting around at home. Patient reports that she lives with her fianc who has congestive heart failure but is able to help her out at home. Patient reports that she would not be willing to be admitted to a prison. Review of systems: As per history of present illness and below otherwise all systems reviewed and negative. Past medical history: As per history of present illness and as reviewed below otherwise noncontributory. Surgical history: As per history of present illness and as reviewed below otherwise noncontributory. Social history: No reported history of drug or alcohol abuse. Family history: As per history of present illness and as reviewed below otherwise noncontributory. Physical exam: Constitutional: Patient is oriented to person, place, and time. Appears well- developed and well-nourished. No distress. HEENT: Moist mucous membranes Head: Normocephalic and atraumatic Eyes: Right eye exhibits no discharge. Left eye exhibits no discharge. No scleral icterus Neck: Normal range of motion. No tracheal deviation present. Cardiovascular: Normal rate and regular rhythm. Pulmonary: Effort normal, no respiratory distress. Abdominal: No distention Musculoskeletal: Normal range of motion Neurologic: Alert and oriented to person, place and time. Skin: [place], warm and dry. Psychiatric: Normal mood and affect. Behavior is normal. Judgment and thought content normal. Nursing note and vital signs have been reviewed Neuro: A&Ox3. Cranial nerves II-XII grossly intact, 5/5 strength to bilateral upper and lower extremities, sensation intact to bilateral upper and lower extremities, no nystagmus, PERRLA, EOMI, normal speech, proprioception intact to bilateral lower extremities, normal finger to nose test, gait normal Patient was tenderness to palpation to her coccyx. Patient appears comfortable while lying flat on her right side and the hospital [facility]. This is a 59-year-old female who presents ER today secondary to pain to her lower back. Patient had been admitted to the hospital approximately 2 weeks ago for 1 week course where physical therapy had evaluated her. Patient was discharged to home after refusing admission to longterm facility with the ability to ambulate with her walker. Patient presents to the ER today secondary to persistent pain since her discharge date because she was unable to get her medications filled. Patient reports that the pharmacy would not deliver her medications to her and therefore she has been without any pain management since. I had a long talk with the patient regarding options that we have. At this time the plan will be to assist patient with pain control here in the ED. Patient will be given Dilaudid, Toradol, Flexeril, Neurontin and will likely be discharged to home. We will have our high school social studies teacher contact her in the morning to assist her with obtaining the medications that were called to the pharmacy for her. Patient is agreeable to this plan at this time. Reassessment at the time of disposition demonstrates that the patient is in no acute distress. The patient has remained stable throughout the entire ED visit and is without objective evidence for acute process requiring urgent intervention or hospitalization. The patient is stable for discharge, counseling is provided as documented above, discussed symptomatic treatment and specific conditions for return. I have spoken with the patient/caregive and discussed todays findings, in addition to providing specific details for the plan of care. Questions are answered and there is agreement with the plan. lower back Pain Score (Numeric/FACES): 7 - Related Data Allergies Allergy/AdvReac Type Severity Reaction Status Date / Time No Known Allergies Allergy Verified 05/24/20 02:25 Home Meds: Home Meds FLUoxetine HCl [Prozac] 40 mg PO DAILY 30 Days #60 capsule 01/24/20 [Rx] Acetaminophen/oxyCODONE [Percocet 325-5 MG] 1 tab PO Q6H PRN #20 tablet 05/16/20 [Rx] Cyclobenzaprine [Flexeril] 5 mg PO TID PRN #15 tab 05/16/20 [Rx] Gabapentin [Neurontin] 300 mg PO BID #60 cap 05/16/20 [Rx] Past Medical History HEENT History: Reports: None Cardiovascular History: Reports: None Respiratory History: Reports: None Gastrointestinal History: Reports: None Genitourinary History: Reports: None PODIATRIC AIDE History: Reports: Musculoskeletal History: Reports: None, Back Pain, Chronic Other Musculoskeletal History: left ankle and r wrist fx Neurological History: Reports: None Psychiatric History: Reports: Anxiety, Depression, PTSD Endocrine/Metabolic History: Reports: None Hematologic History: Reports: None Immunologic History: Reports: None Oncologic (Cancer) History: Reports: None Dermatologic History: Reports: None - Infectious Disease History Infectious Disease History: Reports: None - Past Surgical History Head Surgeries/Procedures: Reports: None HEENT Surgical History: Reports: None Neurological Surgical History: Reports: Lumbar Spine Social & Family History - Family History Family Medical History: Noncontributory - Tobacco Use Smoking Status *Q: Current Some Day Smoker Years of Tobacco use: 12 Packs/Tins Daily: 0.2 - Caffeine Use Caffeine Use: Reports: None - Recreational Drug Use Recreational Drug Use: No ED ROS GENERAL - Review of Systems Review Of Systems: Comprehensive ROS is negative, except as noted in HPI. ED EXAM, GENERAL - Physical Exam Exam: See Below Course - Vital Signs Last Recorded V/S: Last Vital Signs Temp 96.7 F L 05/24/20 02:27 Pulse 77 05/24/20 02:27 Resp 18 05/24/20 02:27 BP 150/73 H 05/24/20 02:27 Pulse Ox 94 L 05/24/20 02:27 - Orders/Labs/Meds Meds: Medications Discontinued Medications Generic Name Dose Route Start Last Admin Trade Name Sivakumar PRN Reason Stop Dose Admin Cyclobenzaprine HCl 10 mg 05/24/20 02:44 Flexeril PO 05/24/20 02:45 ONETIME ONE Gabapentin 300 mg 05/24/20 02:44 Neurontin PO 05/24/20 02:45 ONETIME ONE Hydromorphone HCl 1 mg 05/24/20 02:45 Dilaudid IVPUSH 05/24/20 02:46 ONETIME ONE Ketorolac Tromethamine 15 mg 05/24/20 02:44 Toradol IVPUSH 05/24/20 02:45 ONETIME STA Ondansetron HCl 4 mg 05/24/20 02:46 Zofran IVPUSH 05/24/20 02:47 ONETIME ONE Departure - Departure Time of Disposition: 03:01 Disposition: Home, Self-Care 01 Condition: Good Clinical Impression: Coccygeal pain, chronic - Discharge Information Instructions: What You Need to Know About Chronic Back Pain Referrals: PCP,None [Primary Care Provider] - Additional Instructions: You were seen and evaluated in the ER today for your chronic coccygeal pain. You have been given pain medicines while here in the ED to help control your discomfort. We will have our high school social studies teacher contact you in the morning to see if they can assist you with obtaining medication from the pharmacy. The following information is given to patients seen in the emergency department who are being discharged to home. This information is to outline your options for follow-up care. We provide all patients seen in our emergency department with a follow-up referral. The need for follow-up, as well as the timing and circumstances, are variable depending upon the specifics of your emergency department visit. If you don't have a primary care physician on staff, we will provide you with a referral. We always advise you to contact your personal physician following an emergency department visit to inform them of the circumstance of the visit and for follow-up with them and/or the need for any referrals to a consulting specialist. The emergency department will also refer you to a specialist when appropriate. This referral assures that you have the opportunity for follow-up care with a specialist. All of these measure are taken in an effort to provide you with optimal care, which includes your follow-up. Under all circumstances we always encourage you to contact your private physician who remains a resource for coordinating your care. When calling for follow-up care, please make the office aware that this follow-up is from your recent emergency room visit. If for any reason you are refused follow-up, please contact the [facility] Emergency Department at and asked to speak to the emergency department charge nurse. Sepsis Event Note (ED) - Evaluation Sepsis Screening Result: No Definite Risk - Focused Exam Vital Signs: Vital Signs Temp Pulse Resp BP Pulse Ox 05/24/20 02:27 96.7 F L 77 18 150/73 H 94 L
== END 2020-05-24 03:15 | disposition home or self-care (01) ==
LOC: MW.ED 02:20
DX: G89.29 Other chronic pain (principal); M53.3 Sacrococcygeal disorders, not elsewhere classified; F41.9 Anxiety disorder, unspecified; F32.9 Major depressive disorder, single episode, unspecified; F17.210 Nicotine dependence, cigarettes, uncomplicated; Z79.899 Other long term (current) drug therapy
CPT/HCPCS: 96374; 96375; 99284; A9270; J1170; J1885; J2405

== ENCOUNTER 2020-07-16 11:06 | Observation (INO) | payer MEDICAID, OTHER ==
[2020-07-16] MEDS ORDERED: Sodium Chloride 0.9% 10 ML Syringe FLUSH PRN (11:13)
[2020-07-16] MEDS ORDERED: Sodium Chloride 0.9% 10 ML SDV IV PRN (11:13)
[2020-07-16] MEDS ORDERED: Sodium Chloride 0.9% 2.5 ML Syringe FLUSH PRN (11:13)
--- NOTE | 2020-07-16 11:53 | CT ---
Head CT Technique: Multiple axial sections through the brain were obtained. Intravenous contrast was not utilized. Comparison: Prior head CT study of 05/10/20. Findings: Ventricles along with basal cisterns and sulci over convexities are within normal limits for the patient's age. No abnormal parenchymal densities are seen. No evidence of intracranial hemorrhage. No midline shift or mass effect is seen. Bone window settings were reviewed. Visualized paranasal sinuses show nothing acute. Visualized mastoid sinuses show nothing acute. No acute calvarial findings is appreciated. Impression: 1. Nothing acute is appreciated on noncontrast head CT study. Diagnostic code #1 This report was dictated in MDT
[2020-07-16 12:02] LABS: BLOOD UREA NITROGEN,BUN 16 mg/dL (7.0-18.0); CARBON DIOXIDE,CO2 27.1 mmol/L (21.0-32.0); CHLORIDE,CL 104 mmol/L (98-107); GLUCOSE RANDOM 184 mg/dL (74-106); POTASSIUM,K 3.4 mmol/L (3.5-5.1); SODIUM,NA 142 mmol/L (136-145)
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
[2020-07-16] MEDS ORDERED: Morphine 4 MG/ML Syringe IVPUSH ONE ×2 (12:31→14:17)
--- NOTE | 2020-07-16 12:41 | CT ---
CT angiogram of neck Technique: Noncontrast axial images were obtained to the neck. Multiple contrasted images were obtained through the neck during the arterial phase. Multiple MIP images were obtained. Findings: Noncontrast images shows atherosclerotic plaque within both carotid bulbs. This calcified plaque causes no hemodynamic significant stenosis. Common carotid arteries are patent. No focal stenosis or occlusion is seen. No dissection is noted. Internal carotid arteries and proximal external carotid arteries are patent. No stenosis or occlusion is seen. No dissection is seen. Both vertebral arteries are patent without focal stenosis, occlusion or dissection. Impression: 1. Calcified plaque within both carotid bulbs. This causes no hemodynamic significant stenosis. 2. CT angiogram of the neck is otherwise unremarkable. Diagnostic code #2 This report was dictated in MDT
--- NOTE | 2020-07-16 12:43 | CR ---
Pelvis: AP view of the pelvis was obtained. Comparison: Prior pelvis study of 03/06/20. Contrast is noted within the bladder and ureters from previous contrast angiogram of the neck and head. Mild joint space narrowing is seen within the left hip. Joint space the right hip is preserved. Bony structures are osteopenic. No acute fracture or other abnormality is appreciated. Impression: 1. Mild joint space narrowing within the superior left hip. 2. Osteopenia. 3. Nothing acute is seen on AP pelvis study. Diagnostic code #2 This report was dictated in MDT
--- NOTE | 2020-07-16 12:55 | CT ---
CT angiogram of brain Technique: Multiple axial sections through the brain were obtained. Intravenous contrast was utilized. Multiple minute images were obtained. Findings: Both vertebral arteries are seen and patent into the basilar artery. Basilar artery is patent into both posterior cerebral arteries. Carotid siphon is patent into the middle and anterior cerebral arteries. No focal stenosis or occlusion is seen. No discrete aneurysm is seen. Impression: 1. No abnormality is identified on CT angiogram of the brain. Diagnostic code #1 This report was dictated in MDT
[2020-07-16] MEDS ORDERED: Acetaminophen 325 MG Tab PO PRN (14:59)
[2020-07-16] MEDS ORDERED: Ondansetron 4 MG/2 ML SDV IVPUSH PRN (14:59)
--- NOTE | 2020-07-16 15:48 | PCM.HP.2 ---
H&P History of Present Illness - General Date of Service: 07/16/20 Admit Problem/Dx: Admission Diagnosis/Problem Admission Diagnosis/Problem Weakness Source of Information: Patient History Limitations: Reports: No Limitations tailbone Pain Score (Numeric/FACES): 7 - Related Data Allergies/Adverse Reactions: Allergies Allergy/AdvReac Type Severity Reaction Status Date / Time No Known Allergies Allergy Verified 05/24/20 02:25 Home Medications: Home Meds Cyclobenzaprine [Flexeril] 5 mg PO TID PRN #15 tab 05/16/20 [Rx] Gabapentin [Neurontin] 300 mg PO BID #60 cap 05/16/20 [Rx] Acetaminophen/oxyCODONE [Percocet 325-5 MG] 1 tab PO 5XDAY PRN 07/16/20 [History] Past Medical History HEENT History: Reports: None Cardiovascular History: Reports: None Respiratory History: Reports: None Gastrointestinal History: Reports: None Genitourinary History: Reports: None [employer] History: Reports: Musculoskeletal History: Reports: None, Back Pain, Chronic Other Musculoskeletal History: left ankle and r wrist fx Neurological History: Reports: None Psychiatric History: Reports: Anxiety, Depression, PTSD Endocrine/Metabolic History: Reports: None Hematologic History: Reports: None Immunologic History: Reports: None Oncologic (Cancer) History: Reports: None Dermatologic History: Reports: None - Infectious Disease History Infectious Disease History: Reports: None - Past Surgical History Head Surgeries/Procedures: Reports: None HEENT Surgical History: Reports: None Neurological Surgical History: Reports: Lumbar Spine Social & Family History - Family History Family Medical History: Noncontributory - Tobacco Use Smoking Status *Q: Current Some Day Smoker Years of Tobacco use: 12 Packs/Tins Daily: 0 - Caffeine Use Caffeine Use: Reports: None - Recreational Drug Use Recreational Drug Use: No Exam - Vital Signs Vital Signs: Last Vital Signs Temp 97 F 07/16/20 12:28 Pulse 96 07/16/20 12:28 Resp 16 07/16/20 12:28 BP 123/67 07/16/20 12:28 Pulse Ox 92 L 07/16/20 12:28 - Patient Data Lab Results Last 24 hrs: Laboratory Results - last 24 hr 07/16/20 07/16/20 07/16/20 Range/Units 11:14 11:23 11:23 WBC 6.13 (4.0-11.0) K/uL RBC 5.00 (4.30-5.90) M/uL Hgb 14.5 (12.0-16.0) g/dL Hct 45.1 (36.0-46.0) % MCV 90.2 (80.0-98.0) fL MCH 29.0 (27.0-32.0) pg MCHC 32.2 (31.0-37.0) g/dL RDW Std Deviation 44.2 (28.0-62.0) fl RDW Coeff of Gila 14 (11.0-15.0) % Plt Count 296 (150-400) K/uL MPV 9.60 (7.40-12.00) fL Neut % (Auto) 66.7 (48.0-80.0) % Lymph % (Auto) 26.3 (16.0-40.0) % [place] % (Auto) 5.1 (0.0-15.0) % Eos % (Auto) 1.6 (0.0-7.0) % Baso % (Auto) 0.3 (0.0-1.5) % Neut # (Auto) 4.1 (1.4-5.7) K/uL Lymph # (Auto) 1.6 (0.6-2.4) K/uL [place] # (Auto) 0.3 (0.0-0.8) K/uL Eos # (Auto) 0.1 (0.0-0.7) K/uL Baso # (Auto) 0.0 (0.0-0.1) K/uL Nucleated RBC % 0.0 /100WBC Nucleated RBCs # 0 K/uL INR 0.97 APTT 24.9 (18.6-31.3) SEC Sodium (136-145) mmol/L Potassium (3.5-5.1) mmol/L Chloride (98-107) mmol/L Carbon Dioxide (21.0-32.0) mmol/L BUN (7.0-18.0) mg/dL Creatinine (0.6-1.0) mg/dL Est Cr Clr Drug Dosing Estimated GFR (MDRD) ml/min Glucose (74-106) mg/dL POC Glucose 200 H (60-110) mg/dL Calcium (8.5-10.1) mg/dL Total Bilirubin (0.2-1.0) mg/dL AST (15-37) IU/L ALT (14-63) IU/L Alkaline Phosphatase (46-116) U/L Creatine Kinase (26-308) U/L Troponin I (0.000-0.056) ng/mL Total Protein (6.4-8.2) g/dL Albumin (3.4-5.0) g/dL Globulin (2.6-4.0) g/dL Albumin/Globulin Ratio (0.9-1.6) TSH 3rd Generation (0.36-3.74) uIU/mL Urine Color Urine Appearance Urine pH (5.0-8.0) Ur Specific [place] (1.001-1.035) Urine Protein (NEGATIVE) mg/dL Urine Glucose (UA) (NEGATIVE) mg/dL Urine Ketones (NEGATIVE) mg/dL Urine Occult Blood (NEGATIVE) Urine Nitrite (NEGATIVE) Urine Bilirubin (NEGATIVE) Urine Urobilinogen (<2.0) EU/dL Ur Leukocyte Esterase (NEGATIVE) Urine RBC (0-2/HPF) Urine WBC (0-5/HPF) Ur Epithelial Cells (NONE-FEW) Urine Bacteria (NEGATIVE) SARS-CoV-2 RNA (LASHAUN) (NEGATIVE) 07/16/20 07/16/20 07/16/20 Range/Units 11:23 12:55 13:42 WBC (4.0-11.0) K/uL RBC (4.30-5.90) M/uL Hgb (12.0-16.0) g/dL Hct (36.0-46.0) % MCV (80.0-98.0) fL MCH (27.0-32.0) pg MCHC (31.0-37.0) g/dL RDW Std Deviation (28.0-62.0) fl RDW Coeff of Gila (11.0-15.0) % Plt Count (150-400) K/uL MPV (7.40-12.00) fL Neut % (Auto) (48.0-80.0) % Lymph % (Auto) (16.0-40.0) % [place] % (Auto) (0.0-15.0) % Eos % (Auto) (0.0-7.0) % Baso % (Auto) (0.0-1.5) % Neut # (Auto) (1.4-5.7) K/uL Lymph # (Auto) (0.6-2.4) K/uL [place] # (Auto) (0.0-0.8) K/uL Eos # (Auto) (0.0-0.7) K/uL Baso # (Auto) (0.0-0.1) K/uL Nucleated RBC % /100WBC Nucleated RBCs # K/uL INR APTT (18.6-31.3) SEC Sodium 142 (136-145) mmol/L Potassium 3.4 L (3.5-5.1) mmol/L Chloride 104 (98-107) mmol/L Carbon Dioxide 27.1 (21.0-32.0) mmol/L BUN 16 (7.0-18.0) mg/dL Creatinine 0.8 (0.6-1.0) mg/dL Est Cr Clr Drug Dosing TNP Estimated GFR (MDRD) > 60.0 ml/min Glucose 184 H (74-106) mg/dL POC Glucose (60-110) mg/dL Calcium 9.1 (8.5-10.1) mg/dL Total Bilirubin 1.0 (0.2-1.0) mg/dL AST 20 (15-37) IU/L ALT 24 (14-63) IU/L Alkaline Phosphatase 80 (46-116) U/L Creatine Kinase 106 (26-308) U/L Troponin I < 0.050 (0.000-0.056) ng/mL Total Protein 7.5 (6.4-8.2) g/dL Albumin 3.8 (3.4-5.0) g/dL Globulin 3.7 (2.6-4.0) g/dL Albumin/Globulin Ratio 1.0 (0.9-1.6) TSH 3rd Generation 1.21 (0.36-3.74) uIU/mL Urine Color YELLOW Urine Appearance HAZY Urine pH 5.0 (5.0-8.0) Ur Specific [place] 1.010 (1.001-1.035) Urine Protein NEGATIVE (NEGATIVE) mg/dL Urine Glucose (UA) NEGATIVE (NEGATIVE) mg/dL Urine Ketones NEGATIVE (NEGATIVE) mg/dL Urine Occult Blood TRACE-INTACT H (NEGATIVE) Urine Nitrite POSITIVE H (NEGATIVE) Urine Bilirubin NEGATIVE (NEGATIVE) Urine Urobilinogen 1.0 (<2.0) EU/dL Ur Leukocyte Esterase SMALL H (NEGATIVE) Urine RBC 0-3 (0-2/HPF) Urine WBC 3-6 (0-5/HPF) Ur Epithelial Cells FEW (NONE-FEW) Urine Bacteria 1+ H (NEGATIVE) SARS-CoV-2 RNA (LASHAUN) NEGATIVE (NEGATIVE) Result Diagrams: 07/16/20 11:23 07/16/20 11:23 Sepsis Event Note - Evaluation Sepsis Screening Result: No Definite Risk - Focused Exam Vital Signs: Vital Signs Temp Pulse Resp BP Pulse Ox 07/16/20 12:28 97 F 96 16 123/67 92 L 07/16/20 11:11 96.9 F 82 16 115/64 96 Orders Last 24hrs: Active Orders 24 hr Category Date Time Status Patient Status [ADT] Routine ADT 07/16/20 13:09 Active Intake and Output [RC] QSHIFT Care 07/16/20 15:00 Active NIH Stroke Scale [RC] Q4H Care 07/16/20 14:57 Active Nursing Bedside Swallow Screen [RC] ASDIRECTED Care 07/16/20 11:13 Active Oxygen Therapy [RC] PRN Care 07/16/20 15:00 Active Stroke Education, General [RC] Click to Edit Care 07/16/20 11:13 Active Telemetry Monitoring [Cardiac Monitoring] [RC] . Care 07/16/20 14:58 Active DIRECTED Up to Chair [RC] ASDIRECTED Care 07/16/20 14:59 Active VTE/DVT Education [RC] PER UNIT ROUTINE Care 07/16/20 15:00 Active Vital Signs [RC] Q4H Care 07/16/20 15:00 Active OT Evaluation and Treatment [CONS] Routine Cons 07/16/20 14:59 Active PT Evaluation and Treatment [CONS] Routine Cons 07/16/20 14:59 Active Heart Healthy Diet [DIET] Diet 07/16/20 Lunch Active Brain w wo Cont [MR] Urgent Exams 07/16/20 14:58 Ordered BASIC METABOLIC PANEL,BMP [CHEM] AM Lab 07/17/20 05:11 Ordered CBC WITH AUTO DIFF [HEME] AM Lab 07/17/20 05:11 Ordered GLYCOSYLATED HEMOGLOBIN,HGBA1C [CHEM] Routine Lab 07/16/20 11:23 Received LIPID PANEL [CHEM] AM Lab 07/17/20 05:11 Ordered Acetaminophen [TylenoL] Med 07/16/20 14:59 Active 650 mg PO Q4H PRN Acetaminophen/oxyCODONE [Percocet 325-5 MG] Med 07/16/20 15:06 Active 1 tab PO Q4H PRN DULoxetine [Cymbalta] Med 07/17/20 09:00 Active 30 mg PO DAILY Enoxaparin [Lovenox] Med 07/16/20 15:00 Active 40 mg SUBCUT Q24H Ondansetron [Zofran] Med 07/16/20 14:59 Active 4 mg IVPUSH Q4H PRN Sodium Chloride 0.9% [Saline Flush] Med 07/16/20 11:13 Active 2.5 ml FLUSH ASDIRECTED PRN Peripheral IV Insertion Adult [OM.PC] Stat Oth 07/16/20 11:13 Ordered Resuscitation Status Stat Resus Stat 07/16/20 11:13 Ordered Medication Orders Acetaminophen (Tylenol) 650 mg PO Q4H PRN PRN Reason: Pain (Mild 1-3)/fever Duloxetine HCl (Cymbalta) 30 mg PO DAILY OLIVIA Enoxaparin Sodium (Lovenox) 40 mg SUBCUT Q24H OLIVIA Ondansetron HCl (Zofran) 4 mg IVPUSH Q4H PRN PRN Reason: Nausea Oxycodone/Acetaminophen (Percocet 325-5 Mg) 1 tab PO Q4H PRN PRN Reason: Pain Sodium Chloride (Saline Flush) 2.5 ml FLUSH ASDIRECTED PRN PRN Reason: Keep Vein Open Last Admin: 07/16/20 12:35 Dose: 2.5 ml Documented by: JAZZ
[2020-07-16] MEDS ORDERED: Gadobenate Dimeglumine 529 MG/ML 20 ML SDV IVPUSH STA (15:53)
--- NOTE | 2020-07-16 16:38 | MR ---
MRI brain (without and with intravenous contrast) Technique: T1 sagittal and coronal; T1, T2, FLAIR and diffusion axial; postcontrast T1 fat suppressed axial, sagittal and coronal images were obtained. Comparison: Prior head CT study performed earlier on the same day (11:35 AM). Findings: No acute diffusion abnormalities are appreciated. Ventricles along with basal cisterns and sulci over the convexities are within normal limits for the patient's age. Normal signal void is seen within the major cerebral arteries within the skull base. Very minimal areas of increased signal seen within the periventricular white matter most likely due to small vessel ischemic demyelination change. No other abnormal signal is seen within the brain parenchyma. No midline shift or mass effect is appreciated. No abnormal enhancement is seen after contrast administration. Visualized paranasal sinuses and mastoid sinuses show nothing acute. Impression: 1. Small areas of increased signal within the periventricular white matter most likely due to small vessel ischemic demyelination change. 2. No acute diffusion abnormalities are seen. No additional abnormality is appreciated on MRI study of the brain. Diagnostic code #2 Study was dictated in MDT
[2020-07-16 16:40] LABS: HEMOGLOBIN A1C 5.3 % (4.5-6.2)
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
[2020-07-16] MEDS: cefTRIAXone 1 GM in Premix Bag 1 BAG IV SCH (18:18)
[2020-07-16] MEDS: Enoxaparin 40 MG/0.4 ML Syringe SUBCUT SCH (18:18)
[2020-07-16] MEDS: Acetaminophen/oxyCODONE 325-5 MG Tab PO PRN (19:04)
[2020-07-17] MEDS: Acetaminophen/oxyCODONE 325-5 MG Tab PO PRN ×2 (00:52→13:32)
[2020-07-17 05:57] LABS: BLOOD UREA NITROGEN,BUN 15 mg/dL (7.0-18.0); CARBON DIOXIDE,CO2 30.4 mmol/L (21.0-32.0); CHLORIDE,CL 106 mmol/L (98-107); GLUCOSE RANDOM 111 mg/dL (74-106); SODIUM,NA 142 mmol/L (136-145)
[2020-07-17] MEDS ORDERED: DULoxetine 30 MG Cap PO SCH (09:00)
--- NOTE | 2020-07-17 13:43 | PCM.PN ---
- Patient Data Vitals - Most Recent: Last Vital Signs Temp 36.8 C 07/17/20 12:00 Pulse 91 07/17/20 12:00 Resp 16 07/17/20 12:00 BP 139/82 07/17/20 12:00 Pulse Ox 94 L 07/17/20 12:00 Weight - Most Recent: 56.835 kg I&O - Last 24 Hours: Intake & Output 07/16/20 07/17/20 07/17/20 22:59 06:59 14:59 Intake Total 50 200 Output Total 0 Balance 50 200 Lab Results Last 24 Hours: Laboratory Results - last 24 hr 07/16/20 07/16/20 07/17/20 Range/Units 11:23 13:42 05:03 WBC (4.0-11.0) K/uL RBC (4.30-5.90) M/uL Hgb (12.0-16.0) g/dL Hct (36.0-46.0) % MCV (80.0-98.0) fL MCH (27.0-32.0) pg MCHC (31.0-37.0) g/dL RDW Std Deviation (28.0-62.0) fl RDW Coeff of Gila (11.0-15.0) % Plt Count (150-400) K/uL MPV (7.40-12.00) fL Neut % (Auto) (48.0-80.0) % Lymph % (Auto) (16.0-40.0) % [place] % (Auto) (0.0-15.0) % Eos % (Auto) (0.0-7.0) % Baso % (Auto) (0.0-1.5) % Neut # (Auto) (1.4-5.7) K/uL Lymph # (Auto) (0.6-2.4) K/uL [place] # (Auto) (0.0-0.8) K/uL Eos # (Auto) (0.0-0.7) K/uL Baso # (Auto) (0.0-0.1) K/uL Nucleated RBC % /100WBC Nucleated RBCs # K/uL Sodium 142 (136-145) mmol/L Potassium 4.0 (3.5-5.1) mmol/L Chloride 106 (98-107) mmol/L Carbon Dioxide 30.4 (21.0-32.0) mmol/L BUN 15 (7.0-18.0) mg/dL Creatinine 0.8 (0.6-1.0) mg/dL Est Cr Clr Drug Dosing 62.96 mL/min Estimated GFR (MDRD) > 60.0 ml/min Glucose 111 H (74-106) mg/dL Hemoglobin A1c 5.3 (4.5-6.2) % Calcium 8.7 (8.5-10.1) mg/dL Triglycerides 70 (0-200) mg/dL Cholesterol 168 (50-200) mg/dL LDL Cholesterol, Calc 83 (60-180) mg/dL VLDL Cholesterol 14 (5-55) mg/dL HDL Cholesterol 71 H (40-60) mg/dL Cholesterol/HDL Ratio 2.4 L (3.3-6.0) SARS-CoV-2 RNA (LASHAUN) NEGATIVE (NEGATIVE) 07/17/20 Range/Units 05:03 WBC 6.79 (4.0-11.0) K/uL RBC 4.40 (4.30-5.90) M/uL Hgb 12.5 (12.0-16.0) g/dL Hct 39.7 (36.0-46.0) % MCV 90.2 (80.0-98.0) fL MCH 28.4 (27.0-32.0) pg MCHC 31.5 (31.0-37.0) g/dL RDW Std Deviation 44.6 (28.0-62.0) fl RDW Coeff of Gila 14 (11.0-15.0) % Plt Count 308 (150-400) K/uL MPV 9.70 (7.40-12.00) fL Neut % (Auto) 50.7 (48.0-80.0) % Lymph % (Auto) 39.5 (16.0-40.0) % [place] % (Auto) 7.4 (0.0-15.0) % Eos % (Auto) 2.1 (0.0-7.0) % Baso % (Auto) 0.3 (0.0-1.5) % Neut # (Auto) 3.5 (1.4-5.7) K/uL Lymph # (Auto) 2.7 H (0.6-2.4) K/uL [place] # (Auto) 0.5 (0.0-0.8) K/uL Eos # (Auto) 0.1 (0.0-0.7) K/uL Baso # (Auto) 0.0 (0.0-0.1) K/uL Nucleated RBC % 0.0 /100WBC Nucleated RBCs # 0 K/uL Sodium (136-145) mmol/L Potassium (3.5-5.1) mmol/L Chloride (98-107) mmol/L Carbon Dioxide (21.0-32.0) mmol/L BUN (7.0-18.0) mg/dL Creatinine (0.6-1.0) mg/dL Est Cr Clr Drug Dosing mL/min Estimated GFR (MDRD) ml/min Glucose (74-106) mg/dL Hemoglobin A1c (4.5-6.2) % Calcium (8.5-10.1) mg/dL Triglycerides (0-200) mg/dL Cholesterol (50-200) mg/dL LDL Cholesterol, Calc (60-180) mg/dL VLDL Cholesterol (5-55) mg/dL HDL Cholesterol (40-60) mg/dL Cholesterol/HDL Ratio (3.3-6.0) SARS-CoV-2 RNA (LASHAUN) (NEGATIVE) Med Orders - Current: Current Medications Acetaminophen (Tylenol) 650 mg PO Q4H PRN PRN Reason: Pain (Mild 1-3)/fever Duloxetine HCl (Cymbalta) 30 mg PO DAILY [facility] Last Admin: 07/17/20 09:43 Dose: 30 mg Documented by: Enoxaparin Sodium (Lovenox) 40 mg SUBCUT Q24H [facility] Last Admin: 07/16/20 18:18 Dose: 40 mg Documented by: Ceftriaxone Sodium/Dextrose 1 (gm/ Premix) 50 mls @ 100 mls/hr IV Q24H [facility] Last Admin: 07/16/20 18:18 Dose: 100 mls/hr Documented by: Ondansetron HCl (Zofran) 4 mg IVPUSH Q4H PRN PRN Reason: Nausea Oxycodone/Acetaminophen (Percocet 325-5 Mg) 1 tab PO Q4H PRN PRN Reason: Pain Last Admin: 07/17/20 13:32 Dose: 1 tab Documented by: Sodium Chloride (Saline Flush) 2.5 ml FLUSH ASDIRECTED PRN PRN Reason: Keep Vein Open Last Admin: 07/16/20 12:35 Dose: 2.5 ml Documented by: Discontinued Medications Gadobenate Dimeglumine (Multihance) 20 ml IVPUSH ONETIME STA Stop: 07/16/20 15:54 Last Admin: 07/16/20 15:54 Dose: 7 ml Documented by: Morphine Sulfate (Morphine) 4 mg IVPUSH ONETIME ONE Stop: 07/16/20 12:32 Last Admin: 07/16/20 12:35 Dose: 4 mg Documented by: Morphine Sulfate (Morphine) 4 mg IVPUSH ONETIME ONE Stop: 07/16/20 14:18 Last Admin: 07/16/20 14:33 Dose: 4 mg Documented by: Sodium Chloride (Saline Flush) 10 ml FLUSH ASDIRECTED PRN PRN Reason: Keep Vein Open Last Admin: 07/16/20 12:35 Dose: 10 ml Documented by: Sodium Chloride (Normal Saline) 10 ml IV ASDIRECTED PRN PRN Reason: IV Use Sepsis Event Note - Evaluation Sepsis Screening Result: No Definite Risk - Focused Exam Vital Signs: Vital Signs Temp Pulse Resp BP Pulse Ox 07/17/20 12:00 36.8 C 91 16 139/82 94 L 07/17/20 08:00 35.9 C L 70 16 128/68 95 07/17/20 04:03 37 C 82 16 146/65 H 95 - Problem List & Annotations (1) Weakness SNOMED Code(s): 32672013 Code(s): R53.1 - WEAKNESS Status: Acute Current Visit: Yes (2) Ambulatory dysfunction SNOMED Code(s): 088779176 Code(s): R26.2 - DIFFICULTY IN WALKING, NOT ELSEWHERE CLASSIFIED Status: Acute Current Visit: No (3) Degenerative lumbar disc SNOMED Code(s): 70467842 Code(s): M51.36 - OTHER INTERVERTEBRAL DISC DEGENERATION, LUMBAR REGION Status: Acute Current Visit: No (4) Upper extremity weakness SNOMED Code(s): 817580403 Code(s): R29.898 - OTH SYMPTOMS AND SIGNS INVOLVING THE MUSCULOSKELETAL SYSTEM Status: Acute Current Visit: No (5) Anxiety SNOMED Code(s): 86830729 Code(s): F41.9 - ANXIETY DISORDER, UNSPECIFIED Status: Acute Current Visit: Yes (6) PTSD (post-traumatic stress disorder) SNOMED Code(s): 41736591 Code(s): F43.10 - POST-TRAUMATIC STRESS DISORDER, UNSPECIFIED Status: Acute Current Visit: Yes - Plan Plan:: patient is a 60-year-old female admitted for stroke workup CT scan of head and CTA of head and neck was unremarkable Will obtain MRI of brain Patient is nonambulatory at baseline, we'll inquire with family welfare social work professor and PT to address her living condition continue monitor vitals every 4 hours cont. Home meds
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
[2020-07-17] MEDS: Enoxaparin 40 MG/0.4 ML Syringe SUBCUT SCH (14:53)
--- NOTE | 2020-07-17 16:11 | CR ---
Right shoulder: 3 views right shoulder were obtained. Acromioclavicular and glenohumeral joints appear normal. No acute fracture or other bony abnormality is appreciated. Impression: 1. No abnormality is appreciated on 3 view right shoulder study. Diagnostic code #1 This report was dictated in MDT
[2020-07-17] MEDS: cefTRIAXone 1 GM in Premix Bag 1 BAG IV SCH (16:15)
== END 2020-07-17 20:00 | disposition home or self-care (01) ==
LOC: MW.ED 11:06 → MW.MS 13:09
PROVIDERS: ADMIT Student in an Organized Health Care Education/Training Program; ATTEND Student in an Organized Health Care Education/Training Program
DX: R53.1 Weakness (principal); F41.9 Anxiety disorder, unspecified; F32.9 Major depressive disorder, single episode, unspecified; R29.898 Other symptoms and signs involving the musculoskeletal system; F43.10 Post-traumatic stress disorder, unspecified; F17.210 Nicotine dependence, cigarettes, uncomplicated; R26.2 Difficulty in walking, not elsewhere classified; M51.36 Other intervertebral disc degeneration, lumbar region; Z20.828 Contact with and (suspected) exposure to other viral communicable diseases
CPT/HCPCS: 36415; 70450; 70496; 70498; 70553; 72170; 73030; 80048; 80053; 80061; 81001; 82550; 82962; 83036; 84443; 84484; 85025; 85610; 85730; 87086; 87088; 87186; 87635; 93005; 96365; 96372; 96375; 96376; 97163; 97165; 99285; A9270; A9577; G0378; J0696; J1650; J2270; 93010; 96374; 99217; 99218; U0002

== ENCOUNTER 2020-08-20 10:46 | Emergency (ER) | payer BC, MEDICAID, OTHER ==
[2020-08-20] MEDS ORDERED: oxyCODONE 5 MG Tab PO ONE ×2 (11:09→15:04)
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
[2020-08-20 11:38] LABS: ACETAMINOPHEN <2.0 ug/mL; BLOOD UREA NITROGEN,BUN 11 mg/dL (7.0-18.0); CARBON DIOXIDE,CO2 28.3 mmol/L (21.0-32.0); CHLORIDE,CL 106 mmol/L (98-107); GLUCOSE RANDOM 99 mg/dL (74-106); POTASSIUM,K 3.7 mmol/L (3.5-5.1); SODIUM,NA 143 mmol/L (136-145)
== END 2020-08-20 15:20 ==
LOC: MW.ED 10:46
DX: R45.851 Suicidal ideations (principal); M54.5 Low back pain; G89.29 Other chronic pain; F41.9 Anxiety disorder, unspecified; F32.9 Major depressive disorder, single episode, unspecified; Z79.899 Other long term (current) drug therapy
CPT/HCPCS: 36415; 80053; 80305; 80307; 85025; 93005; 99285; A9270; 93010; 99284

== ENCOUNTER 2020-09-18 13:36 | Inpatient (IN) | payer MEDICAID, OTHER ==
[2020-09-18] MEDS ORDERED: Acetaminophen/oxyCODONE 325-5 MG Tab PO ONE (14:01)
[2020-09-18 15:44] LABS: BLOOD UREA NITROGEN,BUN 14 mg/dL (7.0-18.0); CARBON DIOXIDE,CO2 28.7 mmol/L (21.0-32.0); CHLORIDE,CL 110 mmol/L (98-107); GLUCOSE RANDOM 86 mg/dL (74-106); POTASSIUM,K 3.6 mmol/L (3.5-5.1); SODIUM,NA 145 mmol/L (136-145)
--- NOTE | 2020-09-18 16:25 | EDM.PDOC ---
ED HPI GENERAL MEDICAL PROBLEM - General Chief Complaint: Back Pain or Injury Stated Complaint: EMS ARRIVAL Time Seen by Provider: 09/18/20 13:48 - History of Present Illness INITIAL COMMENTS - FREE TEXT/NARRATIVE: CHIEF COMPLAINT(S): Back pain HISTORY OF PRESENT ILLNESS: This is a 60-year-old woman with a past medical history of chronic back pain, debility who is bedbound and nonambulatory who comes to the emergency department with a chief complaint of back pain. The patient states that her back pain has worsened which she describes in her lower back. She denies any fevers, chills. She denies any new weakness but states that she is bedbound. She states that she tried to have her boyfriend help her get up however he injured himself doing that and does not have any other help at home. She denies any numbness, tingling, weakness, urinary retention, or bowel incontinence. She denies any numbness when wiping. She denies any other symptoms. She states the back pain does not radiate and there is no relieving symptoms but that movement does aggravate it. She rates the pain as 6 out of 10. She denies any associated symptoms. She states that she tried oxycodone which did help a little bit but it has returned back. REVIEW OF SYSTEMS: Constitutional: Denies fever, chills. Eyes: Denies eye pain Ears, Nose, Mouth, & Throat: Denies earache Cardiovascular: Denies chest pain Respiratory: Denies shortness of breath Gastrointestinal: Denies Nausea, vomiting, diarrhea, hematochezia. Genitourinary: Denies hematuria MSK: Positive for lower back pain Neurological: Denies any numbness, tingling, weakness Psychiatric: Denies depression PAST MEDICAL HISTORY: As per history of present illness and as reviewed below otherwise noncontributory. SURGICAL HISTORY: As per history of present illness and as reviewed below otherwise noncontributory. SOCIAL HISTORY: As per history of present illness and as reviewed below otherwise noncontributory. FAMILY HISTORY: As per history of present illness and as reviewed below otherwise noncontributory. EXAMINATION OF ORGAN SYSTEMS/BODY AREAS: Constitutional: Blood pressure is 177/96, heart rate 64, respiratory rate 16 with an oxygen saturation 98% on room air. Temperature 36.3 General: Middle-aged woman who appears frail, thin, and disheveled. The patient's shirt has dried food on it. Psychiatric: Appropriate mood and affect. Eyes: No scleral icterus or conjunctival erythema ENMT: Moist mucous membranes. No pharyngeal erythema Cardiovascular: Regular, rate, and rythym. No gallops, murmurs, or rubs. Bilateral upper extremity pulses symmetric and intact. No peripheral edema. No JVD. Respiratory: Lungs clear to auscultation bilaterally. No wheezes, rales, or rhonchi. Gastrointestinal: Soft, non-tender, non-distended. Normoactive bowel sounds Genitourinary: No suprapubic tenderness no CVA tenderness Musculoskeletal: Patient is not moving all 4 extremities however is weak. There is a midline surgical scar on her lower spine. There is no midline tenderness. Skin: There appears to be a stage I ulcer near the sacrum Neurological: Alert, GCS 15 strength is decreased in upper and lower extremities bilaterally equally. Sensation is intact. MEDICAL DECISION MAKING AND COURSE IN THE ED WITH INTERPRETATION/REVIEW OF DIAGNOSTIC STUDIES: This is a 60-year-old woman with a past medical history of chronic back pain, debility, who is bedbound who comes to the emergency department with exacerbation of chronic back pain who appears disheveled who is mildly hypertensive but overall appears well. At this time we will obtain screening labs including CBC, CMP, and urinalysis. We will provide the patient with Percocet for pain relief. I do not believe any imaging is indicated. Given the degree of debility I did review the patient's chart it appears that the patient was discharged with home health and a walker after prior discharge. I did go back and discussed with the patient regarding home health care and her walker. She states that home health never showed up and she never received a walker. She states that given that her boyfriend is unable to help her she feels like she is unable to help her self and does not feel safe going back home. Laboratory: CBC is unremarkable. CMP is unremarkable. There is some hypoalbuminemia with an albumin of 3.3. Urinalysis was a clean catch and was trace for leukocyte esterase, negative for nitrites, and trace for blood. Interpretation: Bacteriuria After labs I did discuss with the patient regarding admission. She was amenable to this plan. Therefore I contacted the resident for Dr. Dan and they accepted the patient. The patient will be admitted to [facility]. DISPOSITION: The patient is admitted to the hospital in stable condition CONDITION: Fair PROCEDURES: None FINAL IMPRESSION(S)/DIAGNOSES: 1. Acute on chronic debility 2. Acute asymptomatic bacteriuria 3. Acute stage I sacral ulcer Cholo Lind M.D. Lower Back Pain Score (Numeric/FACES): 8 - Related Data Allergies Allergy/AdvReac Type Severity Reaction Status Date / Time No Known Allergies Allergy Verified 09/18/20 13:47 Home Meds: Home Meds DULoxetine [Cymbalta] 30 mg PO DAILY 07/16/20 [History] Gabapentin [Neurontin] 300 mg PO BID #60 cap 07/17/20 [Rx] Nitrofurantoin Monohyd/M-Cryst [Macrobid 100 mg Capsule] 100 mg PO BID 5 Days #10 capsule 07/17/20 [Rx] oxyCODONE HCl/Acetaminophen [Oxycodone-Acetaminophen 5-325] 1 each PO 5XDAY 09/18/20 [History] Past Medical History HEENT History: Reports: None Cardiovascular History: Reports: None Respiratory History: Reports: None Gastrointestinal History: Reports: None Genitourinary History: Reports: None Other Genitourinary History: incontinent of urine [employer] History: Reports: Musculoskeletal History: Reports: None, Back Pain, Chronic Other Musculoskeletal History: left ankle and r wrist fx Neurological History: Reports: None Psychiatric History: Reports: Anxiety, Depression, PTSD Endocrine/Metabolic History: Reports: None Hematologic History: Reports: None Immunologic History: Reports: None Oncologic (Cancer) History: Reports: None Dermatologic History: Reports: None - Infectious Disease History Infectious Disease History: Reports: None - Past Surgical History Head Surgeries/Procedures: Reports: None HEENT Surgical History: Reports: None Respiratory Surgical History: Reports: None Female Surgical History: Reports: None Neurological Surgical History: Reports: Lumbar Spine Musculoskeletal Surgical History: Reports: None Other Musculoskeletal Surgeries/Procedures:: unable to ambulate due to tail bone injury Social & Family History - Family History Family Medical History: No Pertinent Family History - Tobacco Use Tobacco Use Status *Q: Former Tobacco User Used Tobacco, but Quit: Yes Month/Year Tobacco Last Used: 05/2020 - Caffeine Use Caffeine Use: Reports: None - Recreational Drug Use Recreational Drug Use: No ED ROS GENERAL - Review of Systems Review Of Systems: See Below ED EXAM, GENERAL - Physical Exam Exam: See Below Course - Vital Signs Last Recorded V/S: Last Vital Signs Temp 36.3 C 09/18/20 13:38 Pulse 90 09/18/20 18:31 Resp 16 09/18/20 18:31 BP 106/50 L 09/18/20 18:31 Pulse Ox 95 09/18/20 18:31 - Orders/Labs/Meds Orders: Active Orders 24 hr Category Date Time Status Admission Status [Patient Status] [ADT] Stat ADT 09/18/20 17:12 Active Oxygen Therapy [RC] PRN Care 09/18/20 18:54 Active VTE/DVT Education [RC] PER UNIT ROUTINE Care 09/18/20 18:54 Active Vital Signs [RC] Q4H Care 09/18/20 18:54 Active Regular Diet [DIET] Diet 09/18/20 Dinner Active Acetaminophen [TylenoL] Med 09/18/20 18:54 Active 650 mg PO Q4H PRN Acetaminophen/oxyCODONE [Percocet 325-5 MG] Med 09/18/20 18:56 Ordered 1 each PO Q8H PRN DULoxetine [Cymbalta] Med 09/19/20 09:00 Active 30 mg PO DAILY Enoxaparin [Lovenox] Med 09/18/20 19:00 Active 40 mg SUBCUT Q24H Gabapentin [Neurontin] Med 09/18/20 21:00 Active 300 mg PO BID Sodium Chloride 0.9% [Normal Saline] 1,000 ml Med 09/18/20 19:00 Active IV ASDIRECTED cefTRIAXone [Rocephin in Dextrose,Iso-Osm 1 GM/50 ML] 1 Med 09/18/20 19:00 Active gm Premix Bag 1 bag IV Q24H Medication Orders Acetaminophen (Tylenol) 650 mg PO Q4H PRN PRN Reason: Pain (Mild 1-3)/fever Duloxetine HCl (Cymbalta) 30 mg PO DAILY OLIVIA Enoxaparin Sodium (Lovenox) 40 mg SUBCUT Q24H OLIVIA Gabapentin (Neurontin) 300 mg PO BID OLIVIA Sodium Chloride (Normal Saline) 1,000 mls @ 100 mls/hr IV ASDIRECTED OLIVIA Stop: 09/19/20 04:59 Ceftriaxone Sodium/Dextrose 1 (gm/ Premix) 50 mls @ 100 mls/hr IV Q24H [facility] Labs: Laboratory Tests 09/18/20 09/18/20 09/18/20 Range/Units 14:12 14:35 15:00 WBC 5.39 (4.0-11.0) K/uL RBC 4.67 (4.30-5.90) M/uL Hgb 13.4 (12.0-16.0) g/dL Hct 41.9 (36.0-46.0) % MCV 89.7 (80.0-98.0) fL MCH 28.7 (27.0-32.0) pg MCHC 32.0 (31.0-37.0) g/dL RDW Std Deviation 43.4 (28.0-62.0) fl RDW Coeff of Gila 13 (11.0-15.0) % Plt Count 247 (150-400) K/uL MPV 9.20 (7.40-12.00) fL Neut % (Auto) 51.2 (48.0-80.0) % Lymph % (Auto) 35.6 (16.0-40.0) % [place] % (Auto) 9.6 (0.0-15.0) % Eos % (Auto) 3.2 (0.0-7.0) % Baso % (Auto) 0.4 (0.0-1.5) % Neut # (Auto) 2.8 (1.4-5.7) K/uL Lymph # (Auto) 1.9 (0.6-2.4) K/uL [place] # (Auto) 0.5 (0.0-0.8) K/uL Eos # (Auto) 0.2 (0.0-0.7) K/uL Baso # (Auto) 0.0 (0.0-0.1) K/uL Nucleated RBC % 0.0 /100WBC Nucleated RBCs # 0 K/uL Sodium (136-145) mmol/L Potassium (3.5-5.1) mmol/L Chloride (98-107) mmol/L Carbon Dioxide (21.0-32.0) mmol/L BUN (7.0-18.0) mg/dL Creatinine (0.6-1.0) mg/dL Est Cr Clr Drug Dosing mL/min Estimated GFR (MDRD) ml/min Glucose (74-106) mg/dL Calcium (8.5-10.1) mg/dL Total Bilirubin (0.2-1.0) mg/dL AST (15-37) IU/L ALT (14-63) IU/L Alkaline Phosphatase (46-116) U/L Total Protein (6.4-8.2) g/dL Albumin (3.4-5.0) g/dL Globulin (2.6-4.0) g/dL Albumin/Globulin Ratio (0.9-1.6) Urine Color YELLOW Urine Appearance CLEAR Urine pH 5.5 (5.0-8.0) Ur Specific [place] >= 1.030 (1.001-1.035) Urine Protein NEGATIVE (NEGATIVE) mg/dL Urine Glucose (UA) NEGATIVE (NEGATIVE) mg/dL Urine Ketones NEGATIVE (NEGATIVE) mg/dL Urine Occult Blood TRACE-INTACT H (NEGATIVE) Urine Nitrite NEGATIVE (NEGATIVE) Urine Bilirubin SMALL H (NEGATIVE) Urine Ictotest NEGATIVE Urine Urobilinogen 0.2 (<2.0) EU/dL Ur Leukocyte Esterase TRACE H (NEGATIVE) Urine RBC 0-2 (0-2/HPF) Urine WBC 2-3 (0-5/HPF) Ur Epithelial Cells FEW (NONE-FEW) Amorphous Sediment FEW (NEGATIVE) Urine Bacteria 1+ H (NEGATIVE) Urine Mucus FEW (NONE-MOD) SARS-CoV-2 RNA (LASHAUN) NEGATIVE (NEGATIVE) 09/18/20 Range/Units 15:00 WBC (4.0-11.0) K/uL RBC (4.30-5.90) M/uL Hgb (12.0-16.0) g/dL Hct (36.0-46.0) % MCV (80.0-98.0) fL MCH (27.0-32.0) pg MCHC (31.0-37.0) g/dL RDW Std Deviation (28.0-62.0) fl RDW Coeff of [place]ila (11.0-15.0) % Plt Count (150-400) K/uL MPV (7.40-12.00) fL Neut % (Auto) (48.0-80.0) % Lymph % (Auto) (16.0-40.0) % [place] % (Auto) (0.0-15.0) % Eos % (Auto) (0.0-7.0) % Baso % (Auto) (0.0-1.5) % Neut # (Auto) (1.4-5.7) K/uL Lymph # (Auto) (0.6-2.4) K/uL [place] # (Auto) (0.0-0.8) K/uL Eos # (Auto) (0.0-0.7) K/uL Baso # (Auto) (0.0-0.1) K/uL Nucleated RBC % /100WBC Nucleated RBCs # K/uL Sodium 145 (136-145) mmol/L Potassium 3.6 (3.5-5.1) mmol/L Chloride 110 H (98-107) mmol/L Carbon Dioxide 28.7 (21.0-32.0) mmol/L BUN 14 (7.0-18.0) mg/dL Creatinine 0.6 (0.6-1.0) mg/dL Est Cr Clr Drug Dosing 69.61 mL/min Estimated GFR (MDRD) > 60.0 ml/min Glucose 86 (74-106) mg/dL Calcium 9.3 (8.5-10.1) mg/dL Total Bilirubin 0.8 (0.2-1.0) mg/dL AST 14 L (15-37) IU/L ALT 16 (14-63) IU/L Alkaline Phosphatase 72 (46-116) U/L Total Protein 6.9 (6.4-8.2) g/dL Albumin 3.3 L (3.4-5.0) g/dL Globulin 3.6 (2.6-4.0) g/dL Albumin/Globulin Ratio 0.9 (0.9-1.6) Urine Color Urine Appearance Urine pH (5.0-8.0) Ur Specific [place] (1.001-1.035) Urine Protein (NEGATIVE) mg/dL Urine Glucose (UA) (NEGATIVE) mg/dL Urine Ketones (NEGATIVE) mg/dL Urine Occult Blood (NEGATIVE) Urine Nitrite (NEGATIVE) Urine Bilirubin (NEGATIVE) Urine Ictotest Urine Urobilinogen (<2.0) EU/dL Ur Leukocyte Esterase (NEGATIVE) Urine RBC (0-2/HPF) Urine WBC (0-5/HPF) Ur Epithelial Cells (NONE-FEW) Amorphous Sediment (NEGATIVE) Urine Bacteria (NEGATIVE) Urine Mucus (NONE-MOD) SARS-CoV-2 RNA (LASHAUN) (NEGATIVE) Meds: Medications Generic Name Dose Route Start Last Admin Trade Name Freq PRN Reason Stop Dose Admin Acetaminophen 650 mg 09/18/20 18:54 Tylenol PO Q4H PRN Pain (Mild 1-3)/fever Duloxetine HCl 30 mg 09/19/20 09:00 Cymbalta PO DAILY OLIVIA Enoxaparin Sodium 40 mg 09/18/20 19:00 Lovenox SUBCUT Q24H OLIVIA Gabapentin 300 mg 09/18/20 21:00 Neurontin PO BID OLIVIA Sodium Chloride 1,000 mls @ 100 mls/hr 09/18/20 19:00 Normal Saline IV 09/19/20 04:59 ASDIRECTED OLIVIA Ceftriaxone Sodium/Dextrose 1 50 mls @ 100 mls/hr 09/18/20 19:00 gm/ Premix IV Q24H OLIVIA Discontinued Medications Generic Name Dose Route Start Last Admin Trade Name Freq PRN Reason Stop Dose Admin Enoxaparin Sodium 30 mg 09/18/20 19:00 Lovenox SUBCUT Q24H OLIVIA Oxycodone/Acetaminophen 1 tab 09/18/20 14:01 09/18/20 14:17 Percocet 325-5 Mg PO 09/18/20 14:02 1 tab ONETIME ONE Administration Departure - Departure Time of Disposition: 17:12 Disposition: Admitted As Inpatient 64 Clinical Impression: Debility - Discharge Information Referrals: PCP,None [Primary Care Provider] - Forms: ED Department Discharge Sepsis Event Note (ED) - Evaluation Sepsis Screening Result: No Definite Risk - Focused Exam Vital Signs: Vital Signs Temp Pulse Resp BP Pulse Ox 09/18/20 18:31 90 16 106/50 L 95 09/18/20 17:15 82 16 148/67 H 98 09/18/20 16:09 61 16 145/58 H 95 09/18/20 15:39 95 143/69 H 95 09/18/20 14:40 63 124/37 L 95 09/18/20 13:38 36.3 C 64 16 177/96 H 98 - My Orders Last 24 Hours: My Active Orders 09/18/20 17:12 Admission Status [Patient Status] [ADT] Stat - Assessment/Plan Last 24 Hours: My Active Orders 09/18/20 17:12 Admission Status [Patient Status] [ADT] Stat
--- NOTE | 2020-09-18 18:30 | PCM.HP.2 ---
<Garo Ramey - Last Filed: 09/18/20 19:44> H&P History of Present Illness - General Date of Service: 09/18/20 Admit Problem/Dx: Admission Diagnosis/Problem Admission Diagnosis/Problem Debility - History of Present Illness Initial Comments - Free Text/Narative: 60-year-old woman admitted for ambulatory dysfunction with inability to take care of herself. Patient has a PMH of chronic back pain who is bedbound and nonambulatory requiring a wheelchair, history of chronic UTI's, depression and anxiety. Patient presented to the ED with a complaint of back pain. Patients back pain does not radiate to her lower extremities and she denies numbness or decreased sensation her lower extremities. Patients primary caregiver, her boyfriend, has been injured and is not able to take care of her. Patient states that she has generalized weakness and has lost significant weight in the past few months. She also states that she has been attempting to go to PT but her provider has not made the necessary arrangements. Patient denies fever, chills, nausea, vomiting, dysuria, hematuria, flank pain. Patient states that she is not able to take care of herself at home and is not sure when her boyfriend will be able to assist her. Lower Back Pain Score (Numeric/FACES): 8 - Related Data Allergies/Adverse Reactions: Allergies Allergy/AdvReac Type Severity Reaction Status Date / Time No Known Allergies Allergy Verified 09/18/20 22:29 Home Medications: Home Meds DULoxetine [Cymbalta] 30 mg PO DAILY 07/16/20 [History] Gabapentin [Neurontin] 300 mg PO BID #60 cap 07/17/20 [Rx] Nitrofurantoin Monohyd/M-Cryst [Macrobid 100 mg Capsule] 100 mg PO BID 5 Days #10 capsule 07/17/20 [Rx] oxyCODONE HCl/Acetaminophen [Oxycodone-Acetaminophen 5-325] 1 each PO 5XDAY 09/18/20 [History] Past Medical History HEENT History: Reports: None Cardiovascular History: Reports: None Respiratory History: Reports: None Gastrointestinal History: Reports: None Genitourinary History: Reports: None Other Genitourinary History: incontinent of urine [employer] History: Reports: Musculoskeletal History: Reports: None, Back Pain, Chronic Other Musculoskeletal History: left ankle and r wrist fx Neurological History: Reports: None Psychiatric History: Reports: Anxiety, Depression, PTSD Endocrine/Metabolic History: Reports: None Hematologic History: Reports: None Immunologic History: Reports: None Oncologic (Cancer) History: Reports: None Dermatologic History: Reports: None - Infectious Disease History Infectious Disease History: Reports: None - Past Surgical History Head Surgeries/Procedures: Reports: None HEENT Surgical History: Reports: None Respiratory Surgical History: Reports: None Female Surgical History: Reports: None Neurological Surgical History: Reports: Lumbar Spine Musculoskeletal Surgical History: Reports: None Other Musculoskeletal Surgeries/Procedures:: unable to ambulate due to tail bone injury Social & Family History - Family History Family Medical History: No Pertinent Family History - Tobacco Use Tobacco Use Status *Q: Former Tobacco User Used Tobacco, but Quit: Yes Month/Year Tobacco Last Used: 05/2020 - Caffeine Use Caffeine Use: Reports: None - Recreational Drug Use Recreational Drug Use: No H&P Review of Systems - Review of Systems: Review Of Systems: See Below General: Reports: Malaise, Weakness, Fatigue. Denies: Fever, Chills Pulmonary: Denies: Shortness of Breath, Wheezing Cardiovascular: Denies: Chest Pain, Palpitations, Dyspnea on Exertion Gastrointestinal: Reports: Decreased Appetite. Denies: Abdominal Pain, Nausea, Vomiting Genitourinary: Denies: Dysuria Musculoskeletal: Reports: Back Pain Psychiatric: Reports: Depression (history of), Anxiety (history of). Denies: Confusion Neurological: Denies: Dizziness, Headache Exam - Exam Exam: See Below - Vital Signs Vital Signs: Last Vital Signs Temp 97.4 F 09/18/20 13:38 Pulse 82 09/18/20 17:15 Resp 16 09/18/20 17:15 BP 148/67 H 09/18/20 17:15 Pulse Ox 98 09/18/20 17:15 Weight: 45.359 kg - Exam General: Alert, Oriented Lungs: Clear to Auscultation, Normal Respiratory Effort Cardiovascular: Regular Rate, Regular Rhythm GI/Abdominal Exam: Normal Bowel Sounds, Soft, Non-Tender Back Exam: Decreased Range of Motion. No: CVA Tenderness (L), CVA Tenderness (R) Extremities: No Pedal Edema Neurological: Sensation Intact Neuro Extensive - Mental Status: Alert, Oriented x3 Psychiatric: Alert - Patient Data Lab Results Last 24 hrs: Laboratory Results - last 24 hr 09/18/20 09/18/20 09/18/20 Range/Units 14:12 14:35 15:00 WBC 5.39 (4.0-11.0) K/uL RBC 4.67 (4.30-5.90) M/uL Hgb 13.4 (12.0-16.0) g/dL Hct 41.9 (36.0-46.0) % MCV 89.7 (80.0-98.0) fL MCH 28.7 (27.0-32.0) pg MCHC 32.0 (31.0-37.0) g/dL RDW Std Deviation 43.4 (28.0-62.0) fl RDW Coeff of Gila 13 (11.0-15.0) % Plt Count 247 (150-400) K/uL MPV 9.20 (7.40-12.00) fL Neut % (Auto) 51.2 (48.0-80.0) % Lymph % (Auto) 35.6 (16.0-40.0) % [place] % (Auto) 9.6 (0.0-15.0) % Eos % (Auto) 3.2 (0.0-7.0) % Baso % (Auto) 0.4 (0.0-1.5) % Neut # (Auto) 2.8 (1.4-5.7) K/uL Lymph # (Auto) 1.9 (0.6-2.4) K/uL [place] # (Auto) 0.5 (0.0-0.8) K/uL Eos # (Auto) 0.2 (0.0-0.7) K/uL Baso # (Auto) 0.0 (0.0-0.1) K/uL Nucleated RBC % 0.0 /100WBC Nucleated RBCs # 0 K/uL Sodium (136-145) mmol/L Potassium (3.5-5.1) mmol/L Chloride (98-107) mmol/L Carbon Dioxide (21.0-32.0) mmol/L BUN (7.0-18.0) mg/dL Creatinine (0.6-1.0) mg/dL Est Cr Clr Drug Dosing mL/min Estimated GFR (MDRD) ml/min Glucose (74-106) mg/dL Calcium (8.5-10.1) mg/dL Total Bilirubin (0.2-1.0) mg/dL AST (15-37) IU/L ALT (14-63) IU/L Alkaline Phosphatase (46-116) U/L Total Protein (6.4-8.2) g/dL Albumin (3.4-5.0) g/dL Globulin (2.6-4.0) g/dL Albumin/Globulin Ratio (0.9-1.6) Urine Color YELLOW Urine Appearance CLEAR Urine pH 5.5 (5.0-8.0) Ur Specific [place] >= 1.030 (1.001-1.035) Urine Protein NEGATIVE (NEGATIVE) mg/dL Urine Glucose (UA) NEGATIVE (NEGATIVE) mg/dL Urine Ketones NEGATIVE (NEGATIVE) mg/dL Urine Occult Blood TRACE-INTACT H (NEGATIVE) Urine Nitrite NEGATIVE (NEGATIVE) Urine Bilirubin SMALL H (NEGATIVE) Urine Ictotest NEGATIVE Urine Urobilinogen 0.2 (<2.0) EU/dL Ur Leukocyte Esterase TRACE H (NEGATIVE) Urine RBC 0-2 (0-2/HPF) Urine WBC 2-3 (0-5/HPF) Ur Epithelial Cells FEW (NONE-FEW) Amorphous Sediment FEW (NEGATIVE) Urine Bacteria 1+ H (NEGATIVE) Urine Mucus FEW (NONE-MOD) SARS-CoV-2 RNA (LASHAUN) NEGATIVE (NEGATIVE) 09/18/20 Range/Units 15:00 WBC (4.0-11.0) K/uL RBC (4.30-5.90) M/uL Hgb (12.0-16.0) g/dL Hct (36.0-46.0) % MCV (80.0-98.0) fL MCH (27.0-32.0) pg MCHC (31.0-37.0) g/dL RDW Std Deviation (28.0-62.0) fl RDW Coeff of [place] (11.0-15.0) % Plt Count (150-400) K/uL MPV (7.40-12.00) fL Neut % (Auto) (48.0-80.0) % Lymph % (Auto) (16.0-40.0) % [place] % (Auto) (0.0-15.0) % Eos % (Auto) (0.0-7.0) % Baso % (Auto) (0.0-1.5) % Neut # (Auto) (1.4-5.7) K/uL Lymph # (Auto) (0.6-2.4) K/uL [place] # (Auto) (0.0-0.8) K/uL Eos # (Auto) (0.0-0.7) K/uL Baso # (Auto) (0.0-0.1) K/uL Nucleated RBC % /100WBC Nucleated RBCs # K/uL Sodium 145 (136-145) mmol/L Potassium 3.6 (3.5-5.1) mmol/L Chloride 110 H (98-107) mmol/L Carbon Dioxide 28.7 (21.0-32.0) mmol/L BUN 14 (7.0-18.0) mg/dL Creatinine 0.6 (0.6-1.0) mg/dL Est Cr Clr Drug Dosing 69.61 mL/min Estimated GFR (MDRD) > 60.0 ml/min Glucose 86 (74-106) mg/dL Calcium 9.3 (8.5-10.1) mg/dL Total Bilirubin 0.8 (0.2-1.0) mg/dL AST 14 L (15-37) IU/L ALT 16 (14-63) IU/L Alkaline Phosphatase 72 (46-116) U/L Total Protein 6.9 (6.4-8.2) g/dL Albumin 3.3 L (3.4-5.0) g/dL Globulin 3.6 (2.6-4.0) g/dL Albumin/Globulin Ratio 0.9 (0.9-1.6) Urine Color Urine Appearance Urine pH (5.0-8.0) Ur Specific [place] (1.001-1.035) Urine Protein (NEGATIVE) mg/dL Urine Glucose (UA) (NEGATIVE) mg/dL Urine Ketones (NEGATIVE) mg/dL Urine Occult Blood (NEGATIVE) Urine Nitrite (NEGATIVE) Urine Bilirubin (NEGATIVE) Urine Ictotest Urine Urobilinogen (<2.0) EU/dL Ur Leukocyte Esterase (NEGATIVE) Urine RBC (0-2/HPF) Urine WBC (0-5/HPF) Ur Epithelial Cells (NONE-FEW) Amorphous Sediment (NEGATIVE) Urine Bacteria (NEGATIVE) Urine Mucus (NONE-MOD) SARS-CoV-2 RNA (LASHAUN) (NEGATIVE) Result Diagrams: 09/18/20 15:00 09/18/20 15:00 Sepsis Event Note - Evaluation Sepsis Screening Result: No Definite Risk - Focused Exam Vital Signs: Vital Signs Temp Pulse Resp BP Pulse Ox 09/18/20 17:15 82 16 148/67 H 98 09/18/20 16:09 61 16 145/58 H 95 09/18/20 15:39 95 143/69 H 95 09/18/20 14:40 63 124/37 L 95 09/18/20 13:38 97.4 F 64 16 177/96 H 98 Problem List Initiated/Reviewed/Updated: Yes Orders Last 24hrs: Active Orders 24 hr Category Date Time Status Admission Status [Patient Status] [ADT] Stat ADT 09/18/20 17:12 Active Assessment/Plan Comment:: Ambulatory Dysfunction- PT/OT, Frequent patient repositioning UTI- Ceftriaxone 1g Q24hr, 100ml/hr NS <Alexia Cisse - Last Filed: 09/20/20 13:52> H&P History of Present Illness - General Admit Problem/Dx: Admission Diagnosis/Problem Admission Diagnosis/Problem Debility Exam - Vital Signs Vital Signs: Last Vital Signs Temp 36.2 C 09/20/20 12:16 Pulse 73 09/20/20 12:16 Resp 16 09/20/20 12:16 BP 148/64 H 09/20/20 12:24 Pulse Ox 96 09/20/20 12:16 - Patient Data Lab Results Last 24 hrs: Laboratory Results - last 24 hr 09/20/20 09/20/20 09/20/20 Range/Units 06:08 06:08 06:08 WBC 5.18 (4.0-11.0) K/uL RBC 4.48 (4.30-5.90) M/uL Hgb 12.6 (12.0-16.0) g/dL Hct 40.6 (36.0-46.0) % MCV 90.6 (80.0-98.0) fL MCH 28.1 (27.0-32.0) pg MCHC 31.0 (31.0-37.0) g/dL RDW Std Deviation 43.5 (28.0-62.0) fl RDW Coeff of Gila 13 (11.0-15.0) % Plt Count 264 (150-400) K/uL MPV 10.10 (7.40-12.00) fL Neut % (Auto) 46.9 L (48.0-80.0) % Lymph % (Auto) 41.9 H (16.0-40.0) % [place] % (Auto) 8.1 (0.0-15.0) % Eos % (Auto) 2.9 (0.0-7.0) % Baso % (Auto) 0.2 (0.0-1.5) % Neut # (Auto) 2.4 (1.4-5.7) K/uL Lymph # (Auto) 2.2 (0.6-2.4) K/uL [place] # (Auto) 0.4 (0.0-0.8) K/uL Eos # (Auto) 0.2 (0.0-0.7) K/uL Baso # (Auto) 0.0 (0.0-0.1) K/uL Nucleated RBC % 0.0 /100WBC Nucleated RBCs # 0 K/uL Sodium 143 (136-145) mmol/L Potassium 4.3 (3.5-5.1) mmol/L Chloride 107 (98-107) mmol/L Carbon Dioxide 31.5 (21.0-32.0) mmol/L BUN 13 (7.0-18.0) mg/dL Creatinine 0.7 (0.6-1.0) mg/dL Est Cr Clr Drug Dosing 71.96 mL/min Estimated GFR (MDRD) > 60.0 ml/min Glucose 97 (74-106) mg/dL Calcium 8.6 (8.5-10.1) mg/dL Vitamin B12 268 (193-986) pg/mL Result Diagrams: 09/20/20 06:08 09/20/20 06:08 Sepsis Event Note - Focused Exam Vital Signs: Vital Signs Temp Pulse Resp BP BP Pulse Ox 09/20/20 12:24 148/64 H 09/20/20 12:16 36.2 C 73 16 159/132 H 96 09/20/20 07:15 36.5 C 72 18 124/65 93 L 09/20/20 04:00 36.4 C 77 16 111/52 L 96 Orders Last 24hrs: Active Orders 24 hr Category Date Time Status Lumbar Spine 2 or 3V [CR] Routine Exams 09/20/20 10:29 Taken Thoracic Spine 2V [CR] Routine Exams 09/20/20 10:29 Taken CULTURE URINE [RM] Routine Lab 09/19/20 13:37 Received Code Status [Resuscitation Status] Routine Resus Stat 09/19/20 18:49 Ordered Medication Orders Acetaminophen (Tylenol) 650 mg PO Q4H PRN PRN Reason: Pain (Mild 1-3)/fever Last Admin: 09/19/20 20:57 Dose: 650 mg Documented by: Admin: 09/19/20 03:51 Dose: 650 mg Documented by: MARGARET Cholecalciferol (Vitamin D3) 125 mcg PO DAILY [facility] Last Admin: 09/20/20 10:06 Dose: 125 mcg Documented by: Admin: 09/19/20 12:58 Dose: 125 mcg Documented by: CARLEEN Duloxetine HCl (Cymbalta) 30 mg PO DAILY [facility] Last Admin: 09/20/20 10:03 Dose: 30 mg Documented by: Admin: 09/19/20 10:06 Dose: 30 mg Documented by: CARLEEN Enoxaparin Sodium (Lovenox) 40 mg SUBCUT Q24H [facility] Last Admin: 09/19/20 18:38 Dose: 40 mg Documented by: Admin: 09/18/20 21:04 Dose: 40 mg Documented by: MARGARET Gabapentin (Neurontin) 300 mg PO BID [facility] Last Admin: 09/20/20 10:03 Dose: 300 mg Documented by: Admin: 09/19/20 20:57 Dose: 300 mg Documented by: Admin: 09/19/20 10:06 Dose: 300 mg Documented by: Admin: 09/18/20 21:24 Dose: 300 mg Documented by: MARGARET Ceftriaxone Sodium/Dextrose 1 (gm/ Premix) 50 mls @ 100 mls/hr IV Q24H [facility] Last Admin: 09/19/20 18:38 Dose: 100 mls/hr Documented by: Infusion: 09/18/20 21:35 Dose: 100 mls/hr Documented by: Admin: 09/18/20 21:05 Dose: 100 mls/hr Documented by: MARGARET Oxycodone/Acetaminophen (Percocet 325-5 Mg) 1 tab PO Q8H PRN PRN Reason: Pain (severe 7-10) Last Admin: 09/20/20 10:03 Dose: 1 tab Documented by: Admin: 09/20/20 01:36 Dose: 1 tab Documented by: Admin: 09/19/20 15:49 Dose: 1 tab Documented by: Admin: 09/19/20 06:51 Dose: 1 tab Documented by: Admin: 09/18/20 21:04 Dose: 1 tab Documented by: MARGARET Assessment/Plan Comment:: I performed a history and physical exam of the patient and discussed management with resident. I have reviewed the residents note and agree with documented findings and plan unless otherwise specified in my note. Will place social service consult for possible placement, cont IV antibiotics, PT/OT
[2020-09-18] MEDS ORDERED: Sodium Chloride 0.9% 1,000 ML IV SCH (19:00)
[2020-09-18] MEDS ORDERED: Enoxaparin 30 MG/0.3 ML Syringe SUBCUT SCH (19:00)
[2020-09-18] MEDS: Acetaminophen/oxyCODONE 325-5 MG Tab PO PRN (21:04)
[2020-09-18] MEDS: Enoxaparin 40 MG/0.4 ML Syringe SUBCUT SCH (21:04)
[2020-09-18] MEDS: cefTRIAXone 1 GM in Premix Bag 1 BAG IV SCH (21:05)
[2020-09-18] MEDS: Gabapentin 300 MG Cap PO SCH (21:24)
[2020-09-19] MEDS: Acetaminophen 325 MG Tab PO PRN ×2 (03:51→20:57)
[2020-09-19] MEDS: Acetaminophen/oxyCODONE 325-5 MG Tab PO PRN ×2 (06:51→15:49)
[2020-09-19 06:53] LABS: BLOOD UREA NITROGEN,BUN 14 mg/dL (7.0-18.0); CARBON DIOXIDE,CO2 28.6 mmol/L (21.0-32.0); CHLORIDE,CL 109 mmol/L (98-107); GLUCOSE RANDOM 99 mg/dL (74-106); POTASSIUM,K 4.1 mmol/L (3.5-5.1); SODIUM,NA 143 mmol/L (136-145)
[2020-09-19] MEDS: Gabapentin 300 MG Cap PO SCH ×2 (10:06→20:57)
[2020-09-19] MEDS: DULoxetine 30 MG Cap PO SCH (10:06)
--- NOTE | 2020-09-19 12:07 | PCM.PN ---
<Garo Ramey - Last Filed: 09/19/20 11:58> - General Info Date of Service: 09/19/20 Subjective Update: Patient states that she is having Right knee pain and mild lower back pain, which is chronic. Patient denies fever, chills, nausea, vomiting, abdominal pain. Patient states that she would like to go to [facility] for a short stay for rehab. - Review of Systems General: Reports: Weakness. Denies: Fever, Chills Pulmonary: Denies: Shortness of Breath, Pleuritic Chest Pain, Cough Cardiovascular: Denies: Chest Pain, Palpitations, Dyspnea on Exertion Gastrointestinal: Denies: Abdominal Pain, Nausea, Vomiting Neurological: Denies: Confusion, Dizziness, Headache - Patient Data Vitals - Most Recent: Last Vital Signs Temp 97.3 F 09/19/20 08:00 Pulse 58 L 09/19/20 08:00 Resp 16 09/19/20 08:00 BP 114/57 L 09/19/20 08:00 Pulse Ox 95 09/19/20 08:00 Weight - Most Recent: 55.367 kg I&O - Last 24 Hours: Intake & Output 09/18/20 09/19/20 09/19/20 22:59 06:59 14:59 Intake Total 500 1350 Output Total 0 Balance 500 1350 Lab Results Last 24 Hours: Laboratory Results - last 24 hr 09/18/20 09/18/20 09/18/20 Range/Units 14:12 14:35 15:00 WBC 5.39 (4.0-11.0) K/uL RBC 4.67 (4.30-5.90) M/uL Hgb 13.4 (12.0-16.0) g/dL Hct 41.9 (36.0-46.0) % MCV 89.7 (80.0-98.0) fL MCH 28.7 (27.0-32.0) pg MCHC 32.0 (31.0-37.0) g/dL RDW Std Deviation 43.4 (28.0-62.0) fl RDW Coeff of Gila 13 (11.0-15.0) % Plt Count 247 (150-400) K/uL MPV 9.20 (7.40-12.00) fL Neut % (Auto) 51.2 (48.0-80.0) % Lymph % (Auto) 35.6 (16.0-40.0) % [place] % (Auto) 9.6 (0.0-15.0) % Eos % (Auto) 3.2 (0.0-7.0) % Baso % (Auto) 0.4 (0.0-1.5) % Neut # (Auto) 2.8 (1.4-5.7) K/uL Lymph # (Auto) 1.9 (0.6-2.4) K/uL [place] # (Auto) 0.5 (0.0-0.8) K/uL Eos # (Auto) 0.2 (0.0-0.7) K/uL Baso # (Auto) 0.0 (0.0-0.1) K/uL Nucleated RBC % 0.0 /100WBC Nucleated RBCs # 0 K/uL Sodium (136-145) mmol/L Potassium (3.5-5.1) mmol/L Chloride (98-107) mmol/L Carbon Dioxide (21.0-32.0) mmol/L BUN (7.0-18.0) mg/dL Creatinine (0.6-1.0) mg/dL Est Cr Clr Drug Dosing mL/min Estimated GFR (MDRD) ml/min Glucose (74-106) mg/dL Calcium (8.5-10.1) mg/dL Total Bilirubin (0.2-1.0) mg/dL AST (15-37) IU/L ALT (14-63) IU/L Alkaline Phosphatase (46-116) U/L Total Protein (6.4-8.2) g/dL Albumin (3.4-5.0) g/dL Globulin (2.6-4.0) g/dL Albumin/Globulin Ratio (0.9-1.6) Vitamin D 25-Hydroxy (30.0-100.0) ng/mL Urine Color YELLOW Urine Appearance CLEAR Urine pH 5.5 (5.0-8.0) Ur Specific [place] >= 1.030 (1.001-1.035) Urine Protein NEGATIVE (NEGATIVE) mg/dL Urine Glucose (UA) NEGATIVE (NEGATIVE) mg/dL Urine Ketones NEGATIVE (NEGATIVE) mg/dL Urine Occult Blood TRACE-INTACT H (NEGATIVE) Urine Nitrite NEGATIVE (NEGATIVE) Urine Bilirubin SMALL H (NEGATIVE) Urine Ictotest NEGATIVE Urine Urobilinogen 0.2 (<2.0) EU/dL Ur Leukocyte Esterase TRACE H (NEGATIVE) Urine RBC 0-2 (0-2/HPF) Urine WBC 2-3 (0-5/HPF) Ur Epithelial Cells FEW (NONE-FEW) Amorphous Sediment FEW (NEGATIVE) Urine Bacteria 1+ H (NEGATIVE) Urine Mucus FEW (NONE-MOD) SARS-CoV-2 RNA (LASHAUN) NEGATIVE (NEGATIVE) 09/18/20 09/19/20 09/19/20 Range/Units 15:00 05:45 05:45 WBC 5.90 (4.0-11.0) K/uL RBC 4.27 L (4.30-5.90) M/uL Hgb 12.2 (12.0-16.0) g/dL Hct 38.6 (36.0-46.0) % MCV 90.4 (80.0-98.0) fL MCH 28.6 (27.0-32.0) pg MCHC 31.6 (31.0-37.0) g/dL RDW Std Deviation 43.2 (28.0-62.0) fl RDW Coeff of [place]ila 13 (11.0-15.0) % Plt Count 250 (150-400) K/uL MPV 9.70 (7.40-12.00) fL Neut % (Auto) 48.3 (48.0-80.0) % Lymph % (Auto) 39.2 (16.0-40.0) % [place] % (Auto) 9.2 (0.0-15.0) % Eos % (Auto) 3.1 (0.0-7.0) % Baso % (Auto) 0.2 (0.0-1.5) % Neut # (Auto) 2.9 (1.4-5.7) K/uL Lymph # (Auto) 2.3 (0.6-2.4) K/uL [place] # (Auto) 0.5 (0.0-0.8) K/uL Eos # (Auto) 0.2 (0.0-0.7) K/uL Baso # (Auto) 0.0 (0.0-0.1) K/uL Nucleated RBC % 0.0 /100WBC Nucleated RBCs # 0 K/uL Sodium 145 143 (136-145) mmol/L Potassium 3.6 4.1 (3.5-5.1) mmol/L Chloride 110 H 109 H (98-107) mmol/L Carbon Dioxide 28.7 28.6 (21.0-32.0) mmol/L BUN 14 14 (7.0-18.0) mg/dL Creatinine 0.6 0.7 (0.6-1.0) mg/dL Est Cr Clr Drug Dosing 69.61 71.96 mL/min Estimated GFR (MDRD) > 60.0 > 60.0 ml/min Glucose 86 99 (74-106) mg/dL Calcium 9.3 8.2 L (8.5-10.1) mg/dL Total Bilirubin 0.8 (0.2-1.0) mg/dL AST 14 L (15-37) IU/L ALT 16 (14-63) IU/L Alkaline Phosphatase 72 (46-116) U/L Total Protein 6.9 (6.4-8.2) g/dL Albumin 3.3 L (3.4-5.0) g/dL Globulin 3.6 (2.6-4.0) g/dL Albumin/Globulin Ratio 0.9 (0.9-1.6) Vitamin D 25-Hydroxy 14.3 L (30.0-100.0) ng/mL Urine Color Urine Appearance Urine pH (5.0-8.0) Ur Specific [place] (1.001-1.035) Urine Protein (NEGATIVE) mg/dL Urine Glucose (UA) (NEGATIVE) mg/dL Urine Ketones (NEGATIVE) mg/dL Urine Occult Blood (NEGATIVE) Urine Nitrite (NEGATIVE) Urine Bilirubin (NEGATIVE) Urine Ictotest Urine Urobilinogen (<2.0) EU/dL Ur Leukocyte Esterase (NEGATIVE) Urine RBC (0-2/HPF) Urine WBC (0-5/HPF) Ur Epithelial Cells (NONE-FEW) Amorphous Sediment (NEGATIVE) Urine Bacteria (NEGATIVE) Urine Mucus (NONE-MOD) SARS-CoV-2 RNA (LASHAUN) (NEGATIVE) Med Orders - Current: Current Medications Acetaminophen (Tylenol) 650 mg PO Q4H PRN PRN Reason: Pain (Mild 1-3)/fever Last Admin: 09/19/20 03:51 Dose: 650 mg Documented by: Cholecalciferol (Vitamin D3) 125 mcg PO DAILY [facility] Duloxetine HCl (Cymbalta) 30 mg PO DAILY [facility] Last Admin: 09/19/20 10:06 Dose: 30 mg Documented by: Enoxaparin Sodium (Lovenox) 40 mg SUBCUT Q24H [facility] Last Admin: 09/18/20 21:04 Dose: 40 mg Documented by: Gabapentin (Neurontin) 300 mg PO BID [facility] Last Admin: 09/19/20 10:06 Dose: 300 mg Documented by: Ceftriaxone Sodium/Dextrose 1 (gm/ Premix) 50 mls @ 100 mls/hr IV Q24H [facility] Last Admin: 09/18/20 21:05 Dose: 100 mls/hr Documented by: Oxycodone/Acetaminophen (Percocet 325-5 Mg) 1 tab PO Q8H PRN PRN Reason: Pain (severe 7-10) Last Admin: 09/19/20 06:51 Dose: 1 tab Documented by: Discontinued Medications Enoxaparin Sodium (Lovenox) 30 mg SUBCUT Q24H [facility] Sodium Chloride (Normal Saline) 1,000 mls @ 100 mls/hr IV ASDIRECTED [facility] Stop: 09/19/20 04:59 Last Admin: 09/18/20 21:06 Dose: 100 mls/hr Documented by: Oxycodone/Acetaminophen (Percocet 325-5 Mg) 1 tab PO ONETIME ONE Stop: 09/18/20 14:02 Last Admin: 09/18/20 14:17 Dose: 1 tab Documented by: - Exam General: Alert, Oriented Lungs: Clear to Auscultation, Normal Respiratory Effort Cardiovascular: Regular Rate, Regular Rhythm GI/Abdominal Exam: Normal Bowel Sounds, Soft, Non-Tender Extremities: No Pedal Edema Psy/Mental Status: Alert Sepsis Event Note - Evaluation Sepsis Screening Result: No Definite Risk - Focused Exam Vital Signs: Vital Signs Temp Pulse Resp BP Pulse Ox 09/19/20 08:00 97.3 F 58 L 16 114/57 L 95 09/19/20 04:00 97.9 F 71 16 132/60 94 L - Problem List Review Problem List Initiated/Reviewed/Updated: Yes - My Orders Last 24 Hours: My Active Orders 09/18/20 Dinner Regular Diet [DIET] 09/18/20 18:54 Oxygen Therapy [RC] PRN VTE/DVT Education [RC] PER UNIT ROUTINE Vital Signs [RC] Q4H Acetaminophen [TylenoL] 650 mg PO Q4H PRN 09/18/20 18:56 Acetaminophen/oxyCODONE [Percocet 325-5 MG] 1 tab PO Q8H PRN 09/18/20 19:00 Enoxaparin [Lovenox] 40 mg SUBCUT Q24H cefTRIAXone [Rocephin in Dextrose,Iso-Osm 1 GM/50 ML] 1 gm Premix Bag 1 bag IV Q24H 09/18/20 19:19 Turn and Reposition [RC] .As Directed 09/18/20 21:00 Gabapentin [Neurontin] 300 mg PO BID 09/19/20 09:00 DULoxetine [Cymbalta] 30 mg PO DAILY 09/19/20 11:03 Knee 1V or 2V Rt [CR] Routine 09/19/20 12:00 Cholecalciferol (Vitamin D3) [Vitamin D3] 125 mcg PO DAILY - Plan Plan:: Ambulatory Dysfunction- PT/OT, Frequent patient repositioning. Patient states that she would like to go to [facility] as she is not able to take care of herself. Will discuss with social work to make arrangements. UTI- Ceftriaxone 1g Q24hr, 100ml/hr NS <Alexia Cisse - Last Filed: 09/20/20 13:49> - Patient Data Vitals - Most Recent: Last Vital Signs Temp 36.2 C 09/20/20 12:16 Pulse 73 09/20/20 12:16 Resp 16 09/20/20 12:16 BP 148/64 H 09/20/20 12:24 Pulse Ox 96 09/20/20 12:16 I&O - Last 24 Hours: Intake & Output 09/19/20 09/20/20 09/20/20 22:59 06:59 14:59 Intake Total 610 880 Output Total 700 Balance 610 180 Lab Results Last 24 Hours: Laboratory Results - last 24 hr 09/20/20 09/20/20 09/20/20 Range/Units 06:08 06:08 06:08 WBC 5.18 (4.0-11.0) K/uL RBC 4.48 (4.30-5.90) M/uL Hgb 12.6 (12.0-16.0) g/dL Hct 40.6 (36.0-46.0) % MCV 90.6 (80.0-98.0) fL MCH 28.1 (27.0-32.0) pg MCHC 31.0 (31.0-37.0) g/dL RDW Std Deviation 43.5 (28.0-62.0) fl RDW Coeff of [place] 13 (11.0-15.0) % Plt Count 264 (150-400) K/uL MPV 10.10 (7.40-12.00) fL Neut % (Auto) 46.9 L (48.0-80.0) % Lymph % (Auto) 41.9 H (16.0-40.0) % [place] % (Auto) 8.1 (0.0-15.0) % Eos % (Auto) 2.9 (0.0-7.0) % Baso % (Auto) 0.2 (0.0-1.5) % Neut # (Auto) 2.4 (1.4-5.7) K/uL Lymph # (Auto) 2.2 (0.6-2.4) K/uL [place] # (Auto) 0.4 (0.0-0.8) K/uL Eos # (Auto) 0.2 (0.0-0.7) K/uL Baso # (Auto) 0.0 (0.0-0.1) K/uL Nucleated RBC % 0.0 /100WBC Nucleated RBCs # 0 K/uL Sodium 143 (136-145) mmol/L Potassium 4.3 (3.5-5.1) mmol/L Chloride 107 (98-107) mmol/L Carbon Dioxide 31.5 (21.0-32.0) mmol/L BUN 13 (7.0-18.0) mg/dL Creatinine 0.7 (0.6-1.0) mg/dL Est Cr Clr Drug Dosing 71.96 mL/min Estimated GFR (MDRD) > 60.0 ml/min Glucose 97 (74-106) mg/dL Calcium 8.6 (8.5-10.1) mg/dL Vitamin B12 268 (193-986) pg/mL Med Orders - Current: Current Medications Acetaminophen (Tylenol) 650 mg PO Q4H PRN PRN Reason: Pain (Mild 1-3)/fever Last Admin: 09/19/20 20:57 Dose: 650 mg Documented by: Cholecalciferol (Vitamin D3) 125 mcg PO DAILY [facility] Last Admin: 09/20/20 10:06 Dose: 125 mcg Documented by: Duloxetine HCl (Cymbalta) 30 mg PO DAILY [facility] Last Admin: 09/20/20 10:03 Dose: 30 mg Documented by: Enoxaparin Sodium (Lovenox) 40 mg SUBCUT Q24H [facility] Last Admin: 09/19/20 18:38 Dose: 40 mg Documented by: Gabapentin (Neurontin) 300 mg PO BID [facility] Last Admin: 09/20/20 10:03 Dose: 300 mg Documented by: Ceftriaxone Sodium/Dextrose 1 (gm/ Premix) 50 mls @ 100 mls/hr IV Q24H [facility] Last Admin: 09/19/20 18:38 Dose: 100 mls/hr Documented by: Oxycodone/Acetaminophen (Percocet 325-5 Mg) 1 tab PO Q8H PRN PRN Reason: Pain (severe 7-10) Last Admin: 09/20/20 10:03 Dose: 1 tab Documented by: Discontinued Medications Enoxaparin Sodium (Lovenox) 30 mg SUBCUT Q24H [facility] Sodium Chloride (Normal Saline) 1,000 mls @ 100 mls/hr IV ASDIRECTED [facility] Stop: 09/19/20 04:59 Last Admin: 09/18/20 21:06 Dose: 100 mls/hr Documented by: Oxycodone/Acetaminophen (Percocet 325-5 Mg) 1 tab PO ONETIME ONE Stop: 09/18/20 14:02 Last Admin: 09/18/20 14:17 Dose: 1 tab Documented by: Sepsis Event Note - Focused Exam Vital Signs: Vital Signs Temp Pulse Resp BP BP Pulse Ox 09/20/20 12:24 148/64 H 09/20/20 12:16 36.2 C 73 16 159/132 H 96 09/20/20 07:15 36.5 C 72 18 124/65 93 L 09/20/20 04:00 36.4 C 77 16 111/52 L 96 - My Orders Last 24 Hours: My Active Orders 09/19/20 13:37 CULTURE URINE [] Routine - Plan Plan:: I have seen and evaluated the patient and agree with the residents note unless specified in my note
[2020-09-19] MEDS: Cholecalciferol (Vitamin D3) 25 MCG Tab PO SCH (12:58)
[2020-09-19] MEDS: Enoxaparin 40 MG/0.4 ML Syringe SUBCUT SCH (18:38)
[2020-09-19] MEDS: cefTRIAXone 1 GM in Premix Bag 1 BAG IV SCH (18:38)
[2020-09-20] MEDS: Acetaminophen/oxyCODONE 325-5 MG Tab PO PRN ×3 (01:36→18:19)
[2020-09-20 07:24] LABS: BLOOD UREA NITROGEN,BUN 13 mg/dL (7.0-18.0); CARBON DIOXIDE,CO2 31.5 mmol/L (21.0-32.0); CHLORIDE,CL 107 mmol/L (98-107); GLUCOSE RANDOM 97 mg/dL (74-106); POTASSIUM,K 4.3 mmol/L (3.5-5.1); SODIUM,NA 143 mmol/L (136-145)
[2020-09-20] MEDS: Gabapentin 300 MG Cap PO SCH ×2 (10:03→22:09)
[2020-09-20] MEDS: DULoxetine 30 MG Cap PO SCH (10:03)
[2020-09-20] MEDS: Cholecalciferol (Vitamin D3) 25 MCG Tab PO SCH (10:06)
--- NOTE | 2020-09-20 12:22 | PCM.PN ---
<Garo Ramey - Last Filed: 09/20/20 19:56> - General Info Date of Service: 09/20/20 Subjective Update: Patient states that she is having some lower back pain. Denies fever, chills, nausea, vomiting, SOB, chest pain. - Review of Systems General: Denies: Fever, Chills Pulmonary: Denies: Shortness of Breath, Cough Cardiovascular: Denies: Chest Pain, Palpitations Gastrointestinal: Denies: Abdominal Pain, Nausea, Vomiting Musculoskeletal: Reports: Back Pain Neurological: Denies: Confusion, Dizziness - Patient Data Vitals - Most Recent: Last Vital Signs Temp 97.7 F 09/20/20 07:15 Pulse 72 09/20/20 07:15 Resp 18 09/20/20 07:15 BP 124/65 09/20/20 07:15 Pulse Ox 93 L 09/20/20 07:15 Weight - Most Recent: 55.367 kg I&O - Last 24 Hours: Intake & Output 09/19/20 09/20/20 09/20/20 22:59 06:59 14:59 Intake Total 610 880 Output Total 700 Balance 610 180 Lab Results Last 24 Hours: Laboratory Results - last 24 hr 09/20/20 09/20/20 09/20/20 Range/Units 06:08 06:08 06:08 WBC 5.18 (4.0-11.0) K/uL RBC 4.48 (4.30-5.90) M/uL Hgb 12.6 (12.0-16.0) g/dL Hct 40.6 (36.0-46.0) % MCV 90.6 (80.0-98.0) fL MCH 28.1 (27.0-32.0) pg MCHC 31.0 (31.0-37.0) g/dL RDW Std Deviation 43.5 (28.0-62.0) fl RDW Coeff of Gila 13 (11.0-15.0) % Plt Count 264 (150-400) K/uL MPV 10.10 (7.40-12.00) fL Neut % (Auto) 46.9 L (48.0-80.0) % Lymph % (Auto) 41.9 H (16.0-40.0) % Green % (Auto) 8.1 (0.0-15.0) % Eos % (Auto) 2.9 (0.0-7.0) % Baso % (Auto) 0.2 (0.0-1.5) % Neut # (Auto) 2.4 (1.4-5.7) K/uL Lymph # (Auto) 2.2 (0.6-2.4) K/uL Green # (Auto) 0.4 (0.0-0.8) K/uL Eos # (Auto) 0.2 (0.0-0.7) K/uL Baso # (Auto) 0.0 (0.0-0.1) K/uL Nucleated RBC % 0.0 /100WBC Nucleated RBCs # 0 K/uL Sodium 143 (136-145) mmol/L Potassium 4.3 (3.5-5.1) mmol/L Chloride 107 (98-107) mmol/L Carbon Dioxide 31.5 (21.0-32.0) mmol/L BUN 13 (7.0-18.0) mg/dL Creatinine 0.7 (0.6-1.0) mg/dL Est Cr Clr Drug Dosing 71.96 mL/min Estimated GFR (MDRD) > 60.0 ml/min Glucose 97 (74-106) mg/dL Calcium 8.6 (8.5-10.1) mg/dL Vitamin B12 268 (193-986) pg/mL Med Orders - Current: Current Medications Acetaminophen (Tylenol) 650 mg PO Q4H PRN PRN Reason: Pain (Mild 1-3)/fever Last Admin: 09/19/20 20:57 Dose: 650 mg Documented by: Cholecalciferol (Vitamin D3) 125 mcg PO DAILY [facility] Last Admin: 09/20/20 10:06 Dose: 125 mcg Documented by: Duloxetine HCl (Cymbalta) 30 mg PO DAILY [facility] Last Admin: 09/20/20 10:03 Dose: 30 mg Documented by: Enoxaparin Sodium (Lovenox) 40 mg SUBCUT Q24H [facility] Last Admin: 09/19/20 18:38 Dose: 40 mg Documented by: Gabapentin (Neurontin) 300 mg PO BID [facility] Last Admin: 09/20/20 10:03 Dose: 300 mg Documented by: Ceftriaxone Sodium/Dextrose 1 (gm/ Premix) 50 mls @ 100 mls/hr IV Q24H [facility] Last Admin: 09/19/20 18:38 Dose: 100 mls/hr Documented by: Oxycodone/Acetaminophen (Percocet 325-5 Mg) 1 tab PO Q8H PRN PRN Reason: Pain (severe 7-10) Last Admin: 09/20/20 10:03 Dose: 1 tab Documented by: Discontinued Medications Enoxaparin Sodium (Lovenox) 30 mg SUBCUT Q24H [facility] Sodium Chloride (Normal Saline) 1,000 mls @ 100 mls/hr IV ASDIRECTED [facility] Stop: 09/19/20 04:59 Last Admin: 09/18/20 21:06 Dose: 100 mls/hr Documented by: Oxycodone/Acetaminophen (Percocet 325-5 Mg) 1 tab PO ONETIME ONE Stop: 09/18/20 14:02 Last Admin: 09/18/20 14:17 Dose: 1 tab Documented by: - Exam General: Alert, Oriented Lungs: Clear to Auscultation, Normal Respiratory Effort Cardiovascular: Regular Rate, Regular Rhythm GI/Abdominal Exam: Normal Bowel Sounds, Soft, Non-Tender Extremities: No Pedal Edema Sepsis Event Note - Evaluation Sepsis Screening Result: No Definite Risk - Focused Exam Vital Signs: Vital Signs Temp Pulse Resp BP BP Pulse Ox 09/20/20 07:15 97.7 F 72 18 124/65 93 L 09/20/20 04:00 97.6 F 77 16 111/52 L 96 - Problem List Review Problem List Initiated/Reviewed/Updated: Yes - My Orders Last 24 Hours: My Active Orders 09/19/20 12:00 Cholecalciferol (Vitamin D3) [Vitamin D3] 125 mcg PO DAILY 09/19/20 18:49 Code Status [Resuscitation Status] Routine 09/20/20 10:29 Lumbar Spine 2 or 3V [CR] Routine Thoracic Spine 2V [CR] Routine - Plan Plan:: Ambulatory Dysfunction- PT/OT, Frequent patient repositioning. Patient states that she would like to go to [facility] as she is not able to take care of herself. Will discuss with social work to make arrangements. UTI- Ceftriaxone 1g Q24hr, 100ml/hr NS Lower Back Pain- Thoracic and Lumbar X-rays pending <Alexia Cisse - Last Filed: 11/27/20 22:51> - Patient Data Vitals - Most Recent: Last Vital Signs Temp 36.6 C 09/20/20 19:43 Pulse 72 09/20/20 19:43 Resp 17 09/20/20 19:43 BP 121/56 L 09/20/20 19:43 Pulse Ox 96 09/20/20 19:43 I&O - Last 24 Hours: Intake & Output 09/20/20 09/20/20 09/20/20 06:59 14:59 22:59 Intake Total 880 960 Output Total 700 700 Balance 180 260 Lab Results Last 24 Hours: Laboratory Results - last 24 hr 09/20/20 09/20/20 09/20/20 Range/Units 06:08 06:08 06:08 WBC 5.18 (4.0-11.0) K/uL RBC 4.48 (4.30-5.90) M/uL Hgb 12.6 (12.0-16.0) g/dL Hct 40.6 (36.0-46.0) % MCV 90.6 (80.0-98.0) fL MCH 28.1 (27.0-32.0) pg MCHC 31.0 (31.0-37.0) g/dL RDW Std Deviation 43.5 (28.0-62.0) fl RDW Coeff of Gila 13 (11.0-15.0) % Plt Count 264 (150-400) K/uL MPV 10.10 (7.40-12.00) fL Neut % (Auto) 46.9 L (48.0-80.0) % Lymph % (Auto) 41.9 H (16.0-40.0) % Green % (Auto) 8.1 (0.0-15.0) % Eos % (Auto) 2.9 (0.0-7.0) % Baso % (Auto) 0.2 (0.0-1.5) % Neut # (Auto) 2.4 (1.4-5.7) K/uL Lymph # (Auto) 2.2 (0.6-2.4) K/uL Green # (Auto) 0.4 (0.0-0.8) K/uL Eos # (Auto) 0.2 (0.0-0.7) K/uL Baso # (Auto) 0.0 (0.0-0.1) K/uL Nucleated RBC % 0.0 /100WBC Nucleated RBCs # 0 K/uL Sodium 143 (136-145) mmol/L Potassium 4.3 (3.5-5.1) mmol/L Chloride 107 (98-107) mmol/L Carbon Dioxide 31.5 (21.0-32.0) mmol/L BUN 13 (7.0-18.0) mg/dL Creatinine 0.7 (0.6-1.0) mg/dL Est Cr Clr Drug Dosing 71.96 mL/min Estimated GFR (MDRD) > 60.0 ml/min Glucose 97 (74-106) mg/dL Calcium 8.6 (8.5-10.1) mg/dL Vitamin B12 268 (193-986) pg/mL Med Orders - Current: Current Medications Acetaminophen (Tylenol) 650 mg PO Q4H PRN PRN Reason: Pain (Mild 1-3)/fever Last Admin: 09/20/20 21:22 Dose: 650 mg Documented by: Cholecalciferol (Vitamin D3) 125 mcg PO DAILY [facility] Last Admin: 09/20/20 10:06 Dose: 125 mcg Documented by: Duloxetine HCl (Cymbalta) 30 mg PO DAILY [facility] Last Admin: 09/20/20 10:03 Dose: 30 mg Documented by: Enoxaparin Sodium (Lovenox) 40 mg SUBCUT Q24H [facility] Last Admin: 09/20/20 18:21 Dose: 40 mg Documented by: Gabapentin (Neurontin) 300 mg PO BID [facility] Last Admin: 09/20/20 22:09 Dose: 300 mg Documented by: Ceftriaxone Sodium/Dextrose 1 (gm/ Premix) 50 mls @ 100 mls/hr IV Q24H [facility] Last Admin: 09/20/20 18:21 Dose: 100 mls/hr Documented by: Oxycodone/Acetaminophen (Percocet 325-5 Mg) 1 tab PO Q8H PRN PRN Reason: Pain (severe 7-10) Last Admin: 09/20/20 18:19 Dose: 1 tab Documented by: Discontinued Medications Cyanocobalamin (Vitamin B12) 1,000 mcg SUBCUT ONETIME ONE Stop: 09/20/20 14:07 Last Admin: 09/20/20 15:51 Dose: 1,000 mcg Documented by: Enoxaparin Sodium (Lovenox) 30 mg SUBCUT Q24H [facility] Sodium Chloride (Normal Saline) 1,000 mls @ 100 mls/hr IV ASDIRECTED [facility] Stop: 09/19/20 04:59 Last Admin: 09/18/20 21:06 Dose: 100 mls/hr Documented by: Oxycodone/Acetaminophen (Percocet 325-5 Mg) 1 tab PO ONETIME ONE Stop: 09/18/20 14:02 Last Admin: 09/18/20 14:17 Dose: 1 tab Documented by: Sepsis Event Note - Focused Exam Vital Signs: Vital Signs Temp Pulse Resp BP BP Pulse Ox 09/20/20 19:43 36.6 C 72 17 121/56 L 96 09/20/20 16:19 36.7 C 75 18 113/75 98 09/20/20 12:24 148/64 H 09/20/20 12:16 36.2 C 73 16 159/132 H 96 - Plan Plan:: I have seen and evaluated the patient and agree with the residents note unless specified in my note
[2020-09-20] MEDS ORDERED: Cyanocobalamin (Vitamin B12) 1,000 MCG/ML SDV SUBCUT ONE (14:06)
[2020-09-20] MEDS: cefTRIAXone 1 GM in Premix Bag 1 BAG IV SCH (18:21)
[2020-09-20] MEDS: Enoxaparin 40 MG/0.4 ML Syringe SUBCUT SCH (18:21)
[2020-09-20] MEDS: Acetaminophen 325 MG Tab PO PRN (21:22)
[2020-09-21] MEDS: Acetaminophen/oxyCODONE 325-5 MG Tab PO PRN ×3 (03:13→23:15)
[2020-09-21] MEDS: Cholecalciferol (Vitamin D3) 25 MCG Tab PO SCH (08:49)
[2020-09-21] MEDS: Gabapentin 300 MG Cap PO SCH ×2 (08:49→20:17)
[2020-09-21] MEDS: DULoxetine 30 MG Cap PO SCH (08:49)
[2020-09-21] MEDS: Acetaminophen 325 MG Tab PO PRN ×2 (09:51→14:54)
--- NOTE | 2020-09-21 12:05 | PCM.PN ---
- General Info Date of Service: 09/21/20 Admission Dx/Problem (Free Text): Admission Diagnosis/Problem Admission Diagnosis/Problem Debility Subjective Update: Patient seen at bedside, resting comfortably, no acute distress. Functional Status: Reports: Pain Controlled, Tolerating Diet. Denies: Ambulating - Review of Systems General: Denies: Fever, Weakness, Fatigue Pulmonary: Denies: Shortness of Breath, Pleuritic Chest Pain Cardiovascular: Denies: Chest Pain, Palpitations, Dyspnea on Exertion Gastrointestinal: Denies: Abdominal Pain, Constipation, Decreased Appetite Genitourinary: Denies: Dysuria, Frequency, Burning, Pain Musculoskeletal: Denies: Neck Pain, Shoulder Pain, Arm Pain Skin: Denies: Cyanosis, Jaundice, Mottled - Patient Data Vitals - Most Recent: Last Vital Signs Temp 36.8 C 09/21/20 08:43 Pulse 62 09/21/20 08:43 Resp 16 09/21/20 08:43 BP 104/56 L 09/21/20 08:43 Pulse Ox 95 09/21/20 08:43 Weight - Most Recent: 55.367 kg I&O - Last 24 Hours: Intake & Output 09/20/20 09/21/20 09/21/20 22:59 06:59 14:59 Intake Total 960 1160 Output Total 700 1050 Balance 260 110 Odin Results Last 24 Hours: Microbiology 09/18/20 14:12 Urine Culture - Final Urine, Clean Catch MIXED LEANNE >100,000 CFU/ML Med Orders - Current: Current Medications Acetaminophen (Tylenol) 650 mg PO Q4H PRN PRN Reason: Pain (Mild 1-3)/fever Last Admin: 09/21/20 09:51 Dose: 650 mg Documented by: Cholecalciferol (Vitamin D3) 125 mcg PO DAILY [facility] Last Admin: 09/21/20 08:49 Dose: 125 mcg Documented by: Duloxetine HCl (Cymbalta) 30 mg PO DAILY [facility] Last Admin: 09/21/20 08:49 Dose: 30 mg Documented by: Enoxaparin Sodium (Lovenox) 40 mg SUBCUT Q24H [facility] Last Admin: 09/20/20 18:21 Dose: 40 mg Documented by: Gabapentin (Neurontin) 300 mg PO BID [facility] Last Admin: 09/21/20 08:49 Dose: 300 mg Documented by: Ceftriaxone Sodium/Dextrose 1 (gm/ Premix) 50 mls @ 100 mls/hr IV Q24H [facility] Last Admin: 09/20/20 18:21 Dose: 100 mls/hr Documented by: Oxycodone/Acetaminophen (Percocet 325-5 Mg) 1 tab PO Q8H PRN PRN Reason: Pain (severe 7-10) Last Admin: 09/21/20 11:31 Dose: 1 tab Documented by: Discontinued Medications Cyanocobalamin (Vitamin B12) 1,000 mcg SUBCUT ONETIME ONE Stop: 09/20/20 14:07 Last Admin: 09/20/20 15:51 Dose: 1,000 mcg Documented by: Enoxaparin Sodium (Lovenox) 30 mg SUBCUT Q24H [facility] Sodium Chloride (Normal Saline) 1,000 mls @ 100 mls/hr IV ASDIRECTED [facility] Stop: 09/19/20 04:59 Last Admin: 09/18/20 21:06 Dose: 100 mls/hr Documented by: Oxycodone/Acetaminophen (Percocet 325-5 Mg) 1 tab PO ONETIME ONE Stop: 09/18/20 14:02 Last Admin: 09/18/20 14:17 Dose: 1 tab Documented by: - Exam Quality Assessment: Supplemental Oxygen General: Alert, Oriented Lungs: Clear to Auscultation, Normal Respiratory Effort Cardiovascular: Regular Rate, Regular Rhythm, No Murmurs Sepsis Event Note - Evaluation Sepsis Screening Result: No Definite Risk - Focused Exam Vital Signs: Vital Signs Temp Pulse Resp BP BP Pulse Ox 09/21/20 08:43 36.8 C 62 16 104/56 L 95 09/21/20 03:11 36.5 C 72 16 110/60 97 09/21/20 00:07 36.5 C 70 14 108/61 96 - Problem List & Annotations (1) Debility SNOMED Code(s): 18825583 Code(s): R53.81 - OTHER MALAISE Status: Acute Current Visit: Yes (2) Ambulatory dysfunction SNOMED Code(s): 385991832 Code(s): R26.2 - DIFFICULTY IN WALKING, NOT ELSEWHERE CLASSIFIED Status: Acute Current Visit: No (3) Chronic back pain greater than 3 months duration SNOMED Code(s): 458247460685 Code(s): M54.9 - DORSALGIA, UNSPECIFIED; G89.29 - OTHER CHRONIC PAIN Status: Acute Current Visit: No (4) Degenerative lumbar disc SNOMED Code(s): 23878533 Code(s): M51.36 - OTHER INTERVERTEBRAL DISC DEGENERATION, LUMBAR REGION Status: Acute Current Visit: No (5) PTSD (post-traumatic stress disorder) SNOMED Code(s): 90742377 Code(s): F43.10 - POST-TRAUMATIC STRESS DISORDER, UNSPECIFIED Status: Acute Current Visit: No (6) Weakness SNOMED Code(s): 52707767 Code(s): R53.1 - WEAKNESS Status: Acute Current Visit: No - Problem List Review Problem List Initiated/Reviewed/Updated: Yes - Plan Plan:: Ambulatory Dysfunction- PT/OT, Frequent patient repositioning. Patient states that she would like to go to [facility] as she is not able to take care of herself. MARKY on board UTI- Ceftriaxone 1g Q24hr, 100ml/hr NS Lower Back Pain- Thoracic and Lumbar X-rays still pending, will reach to radiology for final read
--- NOTE | 2020-09-21 12:18 | CR ---
Indication: Knee pain Technique: Two views right knee Findings: Normal alignment. No fractures no effusions. Soft tissues appear unremarkable. Dictated by Tanisha Maciel MD @ Sep 21 2020 12:16PM Signed by Dr. Tanisha Maciel @ Sep 21 2020 12:17PM
--- NOTE | 2020-09-21 12:20 | CR ---
Indication: Back pain Technique: Two-view lumbar spine Comparison: No comparison studies are available Findings: Normal height and alignment of the lumbar vertebral bodies. No acute fracture. No significant degenerative change. Poor visualization of the upper lumbar vertebral bodies due to increased overlying soft tissues. Dictated by Tanisha Maciel MD @ Sep 21 2020 12:17PM Signed by Dr. Tanisha Maciel @ Sep 21 2020 12:19PM
--- NOTE | 2020-09-21 12:22 | CR ---
Indication: Back pain Technique: Two-view thoracic spine. Findings: Bones appear demineralized. No acute fractures. Suboptimal visualization of the vertebral bodies on the lateral view. No significant degenerative change seen. Dictated by Tanisha Maciel MD @ Sep 21 2020 12:19PM Signed by Dr. Tanisha Maciel @ Sep 21 2020 12:22PM
[2020-09-21] MEDS: Enoxaparin 40 MG/0.4 ML Syringe SUBCUT SCH (18:23)
[2020-09-21] MEDS: cefTRIAXone 1 GM in Premix Bag 1 BAG IV SCH (18:24)
[2020-09-22] MEDS: Cholecalciferol (Vitamin D3) 25 MCG Tab PO SCH (09:18)
[2020-09-22] MEDS: DULoxetine 30 MG Cap PO SCH (09:18)
[2020-09-22] MEDS: Calcium Citrate 950 MG Tab PO SCH (09:19)
[2020-09-22] MEDS: Acetaminophen/oxyCODONE 325-5 MG Tab PO PRN ×2 (09:19→17:43)
[2020-09-22] MEDS: Gabapentin 300 MG Cap PO SCH ×2 (09:19→20:04)
--- NOTE | 2020-09-22 13:03 | PCM.PN ---
- General Info Date of Service: 09/22/20 Admission Dx/Problem (Free Text): Admission Diagnosis/Problem Admission Diagnosis/Problem Debility Subjective Update: Patient seen at bedside, resting comfortably, no acute distress. Concerned if she will be able to walk again. - Review of Systems General: Denies: Fever, Weakness Pulmonary: Denies: Shortness of Breath, Pleuritic Chest Pain Cardiovascular: Denies: Chest Pain, Palpitations, Dyspnea on Exertion Gastrointestinal: Denies: Abdominal Pain, Constipation, Decreased Appetite Genitourinary: Denies: Frequency, Hematuria Musculoskeletal: Reports: Hand Pain, Back Pain, Leg Pain, Joint Pain Skin: Denies: Cyanosis, Jaundice, Mottled Neurological: Reports: Numbness, Pre-Existing Deficit, Difficulty Walking, Gait Disturbance. Denies: Confusion, Dizziness, Headache, Tremors, Trouble Speaking, Change in Speech Psychiatric: Denies: Confusion, Depression, Mood Lability Systems Review Comment:: chronic findings - Patient Data Vitals - Most Recent: Last Vital Signs Temp 36.2 C 09/22/20 09:24 Pulse 70 09/22/20 09:24 Resp 18 09/22/20 09:24 BP 131/80 09/22/20 09:24 Pulse Ox 94 L 09/22/20 09:24 Weight - Most Recent: 55.367 kg I&O - Last 24 Hours: Intake & Output 09/21/20 09/22/20 09/22/20 22:59 06:59 14:59 Intake Total 680 850 Output Total 250 400 Balance 430 450 Odin Results Last 24 Hours: Microbiology 09/18/20 14:12 Urine Culture - Final Urine, Clean Catch MIXED RENATO >100,000 CFU/ML Med Orders - Current: Current Medications Acetaminophen (Tylenol) 650 mg PO Q4H PRN PRN Reason: Pain (Mild 1-3)/fever Last Admin: 09/21/20 14:54 Dose: 650 mg Documented by: Calcium Citrate (Calcitrate) 950 mg PO DAILY [facility] Last Admin: 09/22/20 09:19 Dose: 950 mg Documented by: Cholecalciferol (Vitamin D3) 125 mcg PO DAILY [facility] Last Admin: 09/22/20 09:18 Dose: 125 mcg Documented by: Duloxetine HCl (Cymbalta) 30 mg PO DAILY [facility] Last Admin: 09/22/20 09:18 Dose: 30 mg Documented by: Enoxaparin Sodium (Lovenox) 40 mg SUBCUT Q24H [facility] Last Admin: 09/21/20 18:23 Dose: 40 mg Documented by: Gabapentin (Neurontin) 300 mg PO BID [facility] Last Admin: 09/22/20 09:19 Dose: 300 mg Documented by: Ceftriaxone Sodium/Dextrose 1 (gm/ Premix) 50 mls @ 100 mls/hr IV Q24H [facility] Last Admin: 09/21/20 18:24 Dose: 100 mls/hr Documented by: Oxycodone/Acetaminophen (Percocet 325-5 Mg) 1 tab PO Q8H PRN PRN Reason: Pain (severe 7-10) Last Admin: 09/22/20 09:19 Dose: 1 tab Documented by: Discontinued Medications Cyanocobalamin (Vitamin B12) 1,000 mcg SUBCUT ONETIME ONE Stop: 09/20/20 14:07 Last Admin: 09/20/20 15:51 Dose: 1,000 mcg Documented by: Enoxaparin Sodium (Lovenox) 30 mg SUBCUT Q24H [facility] Sodium Chloride (Normal Saline) 1,000 mls @ 100 mls/hr IV ASDIRECTED [facility] Stop: 09/19/20 04:59 Last Admin: 09/18/20 21:06 Dose: 100 mls/hr Documented by: Oxycodone/Acetaminophen (Percocet 325-5 Mg) 1 tab PO ONETIME ONE Stop: 09/18/20 14:02 Last Admin: 09/18/20 14:17 Dose: 1 tab Documented by: - Exam General: Alert, Oriented, Cooperative, No Acute Distress Neck: Supple, Trachea Midline Lungs: Clear to Auscultation, Normal Respiratory Effort Cardiovascular: Regular Rate, Regular Rhythm GI/Abdominal Exam: Normal Bowel Sounds, Soft, Non-Tender Back Exam: Decreased Range of Motion Extremities: Non-Tender, Normal Capillary Refill, Limited Range of Motion. No: Joint Swelling, Increased Warmth, Mottled, Pallor Sepsis Event Note - Evaluation Sepsis Screening Result: No Definite Risk - Focused Exam Vital Signs: Vital Signs Temp Pulse Resp BP Pulse Ox 09/22/20 09:24 36.2 C 70 18 131/80 94 L 09/22/20 03:53 36.1 C 81 15 126/74 97 - Problem List & Annotations (1) Debility SNOMED Code(s): 28410529 Code(s): R53.81 - OTHER MALAISE Status: Acute Current Visit: Yes (2) Ambulatory dysfunction SNOMED Code(s): 924932078 Code(s): R26.2 - DIFFICULTY IN WALKING, NOT ELSEWHERE CLASSIFIED Status: Acute Current Visit: No (3) Chronic back pain greater than 3 months duration SNOMED Code(s): 308227245617 Code(s): M54.9 - DORSALGIA, UNSPECIFIED; G89.29 - OTHER CHRONIC PAIN Status: Acute Current Visit: No (4) Degenerative lumbar disc SNOMED Code(s): 22853536 Code(s): M51.36 - OTHER INTERVERTEBRAL DISC DEGENERATION, LUMBAR REGION Status: Acute Current Visit: No (5) PTSD (post-traumatic stress disorder) SNOMED Code(s): 93437428 Code(s): F43.10 - POST-TRAUMATIC STRESS DISORDER, UNSPECIFIED Status: Acute Current Visit: No (6) Weakness SNOMED Code(s): 70236744 Code(s): R53.1 - WEAKNESS Status: Acute Current Visit: No - Problem List Review Problem List Initiated/Reviewed/Updated: Yes - Plan Plan:: Ambulatory Dysfunction- PT/OT, Frequent patient repositioning. Patient states that she would like to go to [facility] as she is not able to take care of herself. SW on board, awaiting placement UTI- UC shows mixed renato, will dc antibiotics Lower Back Pain- Thoracic and Lumbar X-rays noted, no acute findings, cont PT/OT
[2020-09-22] MEDS: Acetaminophen 325 MG Tab PO PRN (14:49)
[2020-09-22] MEDS: Enoxaparin 40 MG/0.4 ML Syringe SUBCUT SCH (18:49)
[2020-09-23] MEDS: Acetaminophen/oxyCODONE 325-5 MG Tab PO PRN ×3 (02:25→18:07)
[2020-09-23] MEDS: Gabapentin 300 MG Cap PO SCH ×2 (08:53→21:03)
[2020-09-23] MEDS: DULoxetine 30 MG Cap PO SCH (08:53)
[2020-09-23] MEDS: Calcium Citrate 950 MG Tab PO SCH (08:54)
[2020-09-23] MEDS: Cholecalciferol (Vitamin D3) 25 MCG Tab PO SCH (08:54)
--- NOTE | 2020-09-23 14:11 | PCM.PN ---
<Garo Ramey - Last Filed: 09/23/20 14:06> - General Info Date of Service: 09/23/20 Subjective Update: Patient states chronic lower back pain. States good appetite and slept well. Denies fever, chills, nausea, vomiting. Patient is interested in discussing options to increase mobility and strengthening. - Review of Systems General: Denies: Fever, Chills Pulmonary: Denies: Shortness of Breath, Pleuritic Chest Pain Cardiovascular: Denies: Chest Pain, Palpitations, Dyspnea on Exertion Gastrointestinal: Denies: Abdominal Pain, Decreased Appetite, Nausea, Vomiting Musculoskeletal: Reports: Back Pain Neurological: Denies: Confusion, Dizziness - Patient Data Vitals - Most Recent: Last Vital Signs Temp 98.6 F 09/23/20 11:24 Pulse 84 09/23/20 11:24 Resp 18 09/23/20 11:24 BP 138/63 09/23/20 11:24 Pulse Ox 94 L 09/23/20 11:24 Weight - Most Recent: 55.367 kg I&O - Last 24 Hours: Intake & Output 09/22/20 09/23/20 09/23/20 22:59 06:59 14:59 Intake Total 440 920 Output Total 300 Balance 440 620 Med Orders - Current: Current Medications Acetaminophen (Tylenol) 650 mg PO Q4H PRN PRN Reason: Pain (Mild 1-3)/fever Last Admin: 09/22/20 14:49 Dose: 650 mg Documented by: Calcium Citrate (Calcitrate) 950 mg PO DAILY [facility] Last Admin: 09/23/20 08:54 Dose: 950 mg Documented by: Cholecalciferol (Vitamin D3) 125 mcg PO DAILY [facility] Last Admin: 09/23/20 08:54 Dose: 125 mcg Documented by: Duloxetine HCl (Cymbalta) 30 mg PO DAILY [facility] Last Admin: 09/23/20 08:53 Dose: 30 mg Documented by: Enoxaparin Sodium (Lovenox) 40 mg SUBCUT Q24H [facility] Last Admin: 09/22/20 18:49 Dose: 40 mg Documented by: Gabapentin (Neurontin) 300 mg PO BID [facility] Last Admin: 09/23/20 08:53 Dose: 300 mg Documented by: Oxycodone/Acetaminophen (Percocet 325-5 Mg) 1 tab PO Q8H PRN PRN Reason: Pain (severe 7-10) Last Admin: 09/23/20 10:22 Dose: 1 tab Documented by: Discontinued Medications Cyanocobalamin (Vitamin B12) 1,000 mcg SUBCUT ONETIME ONE Stop: 09/20/20 14:07 Last Admin: 09/20/20 15:51 Dose: 1,000 mcg Documented by: Enoxaparin Sodium (Lovenox) 30 mg SUBCUT Q24H [facility] Sodium Chloride (Normal Saline) 1,000 mls @ 100 mls/hr IV ASDIRECTED [facility] Stop: 09/19/20 04:59 Last Admin: 09/18/20 21:06 Dose: 100 mls/hr Documented by: Ceftriaxone Sodium/Dextrose 1 (gm/ Premix) 50 mls @ 100 mls/hr IV Q24H [facility] Last Admin: 09/21/20 18:24 Dose: 100 mls/hr Documented by: Oxycodone/Acetaminophen (Percocet 325-5 Mg) 1 tab PO ONETIME ONE Stop: 09/18/20 14:02 Last Admin: 09/18/20 14:17 Dose: 1 tab Documented by: - Exam General: Alert, Oriented Lungs: Clear to Auscultation, Normal Respiratory Effort Cardiovascular: Regular Rate, Regular Rhythm GI/Abdominal Exam: Normal Bowel Sounds, Soft, Non-Tender Back Exam: Decreased Range of Motion Psy/Mental Status: Alert Sepsis Event Note - Evaluation Sepsis Screening Result: No Definite Risk - Focused Exam Vital Signs: Vital Signs Temp Pulse Resp BP Pulse Ox 09/23/20 11:24 98.6 F 84 18 138/63 94 L 09/23/20 09:01 97.9 F 76 15 143/68 H 95 09/23/20 04:00 97.5 F 71 18 126/63 93 L - Problem List Review Problem List Initiated/Reviewed/Updated: Yes - Plan Plan:: Ambulatory Dysfunction- PT/OT, Frequent patient repositioning. UTI- UC shows mixed renato Lower Back Pain- Thoracic and Lumbar X-rays noted, no acute findings, cont PT/OT Attempted to contact outside facility, [facility], for an inpatient transfer for Inpatient PT and Neurology workup. No beds available. Will follow up with Social work to discuss other options. <Alexia Cisse - Last Filed: 09/29/20 18:33> - Patient Data Vitals - Most Recent: Last Vital Signs Temp 36.4 C 09/27/20 16:00 Pulse 80 09/27/20 16:00 Resp 17 09/27/20 16:00 BP 125/68 09/27/20 16:00 Pulse Ox 95 09/27/20 16:00 Med Orders - Current: Current Medications Discontinued Medications Acetaminophen (Tylenol) 650 mg PO Q4H PRN PRN Reason: Pain (Mild 1-3)/fever Last Admin: 09/25/20 16:00 Dose: 650 mg Documented by: Calcium Citrate (Calcitrate) 950 mg PO DAILY [facility] Last Admin: 09/27/20 09:04 Dose: 950 mg Documented by: Cholecalciferol (Vitamin D3) 125 mcg PO DAILY [facility] Last Admin: 09/27/20 09:06 Dose: 125 mcg Documented by: Cyanocobalamin (Vitamin B12) 1,000 mcg SUBCUT ONETIME ONE Stop: 09/20/20 14:07 Last Admin: 09/20/20 15:51 Dose: 1,000 mcg Documented by: Duloxetine HCl (Cymbalta) 30 mg PO DAILY [facility] Last Admin: 09/27/20 09:04 Dose: 30 mg Documented by: Enoxaparin Sodium (Lovenox) 30 mg SUBCUT Q24H [facility] Enoxaparin Sodium (Lovenox) 40 mg SUBCUT Q24H [facility] Last Admin: 09/26/20 19:05 Dose: 40 mg Documented by: Gabapentin (Neurontin) 300 mg PO BID [facility] Last Admin: 09/27/20 09:05 Dose: 300 mg Documented by: Sodium Chloride (Normal Saline) 1,000 mls @ 100 mls/hr IV ASDIRECTED [facility] Stop: 09/19/20 04:59 Last Admin: 09/18/20 21:06 Dose: 100 mls/hr Documented by: Ceftriaxone Sodium/Dextrose 1 (gm/ Premix) 50 mls @ 100 mls/hr IV Q24H [facility] Last Admin: 09/21/20 18:24 Dose: 100 mls/hr Documented by: Oxycodone/Acetaminophen (Percocet 325-5 Mg) 1 tab PO ONETIME ONE Stop: 09/18/20 14:02 Last Admin: 09/18/20 14:17 Dose: 1 tab Documented by: Oxycodone/Acetaminophen (Percocet 325-5 Mg) 1 tab PO Q8H PRN PRN Reason: Pain (severe 7-10) Last Admin: 09/27/20 16:58 Dose: 1 tab Documented by: - Problem List & Annotations (1) Debility SNOMED Code(s): 96325812 Code(s): R53.81 - OTHER MALAISE Status: Acute (2) Ambulatory dysfunction SNOMED Code(s): 655266450 Code(s): R26.2 - DIFFICULTY IN WALKING, NOT ELSEWHERE CLASSIFIED Status: Acute (3) Chronic back pain greater than 3 months duration SNOMED Code(s): 176999776708 Code(s): M54.9 - DORSALGIA, UNSPECIFIED; G89.29 - OTHER CHRONIC PAIN Status: Acute (4) Degenerative lumbar disc SNOMED Code(s): 33010033 Code(s): M51.36 - OTHER INTERVERTEBRAL DISC DEGENERATION, LUMBAR REGION Status: Acute (5) PTSD (post-traumatic stress disorder) SNOMED Code(s): 24874870 Code(s): F43.10 - POST-TRAUMATIC STRESS DISORDER, UNSPECIFIED Status: Acute (6) Weakness SNOMED Code(s): 61709259 Code(s): R53.1 - WEAKNESS Status: Acute - Plan Plan:: I have seen and evaluated the patient and agree with the residents note unless specified in my note
[2020-09-23] MEDS: Enoxaparin 40 MG/0.4 ML Syringe SUBCUT SCH (18:05)
[2020-09-24] MEDS: Acetaminophen/oxyCODONE 325-5 MG Tab PO PRN ×3 (03:55→20:20)
[2020-09-24] MEDS: Cholecalciferol (Vitamin D3) 25 MCG Tab PO SCH (09:14)
[2020-09-24] MEDS: Gabapentin 300 MG Cap PO SCH ×2 (09:15→20:18)
[2020-09-24] MEDS: DULoxetine 30 MG Cap PO SCH (09:15)
[2020-09-24] MEDS: Calcium Citrate 950 MG Tab PO SCH (09:15)
[2020-09-24] MEDS: Acetaminophen 325 MG Tab PO PRN (11:04)
--- NOTE | 2020-09-24 18:45 | PCM.PN ---
- General Info Date of Service: 09/24/20 Subjective Update: Patient states good appetite and sleeping well. Denies fever, chills, nausea, abdominal pain, shortness of breath. - Review of Systems General: Denies: Fever, Chills Pulmonary: Denies: Shortness of Breath, Cough Cardiovascular: Denies: Chest Pain Gastrointestinal: Denies: Abdominal Pain, Decreased Appetite, Nausea, Vomiting Musculoskeletal: Reports: Back Pain (chronic) Neurological: Denies: Confusion, Dizziness, Headache - Patient Data Vitals - Most Recent: Last Vital Signs Temp 98.3 F 09/24/20 18:18 Pulse 87 09/24/20 18:18 Resp 16 09/24/20 18:18 BP 129/85 09/24/20 18:18 Pulse Ox 96 09/24/20 18:18 Weight - Most Recent: 122 lb 1 oz I&O - Last 24 Hours: Intake & Output 09/24/20 09/24/20 09/24/20 06:59 14:59 22:59 Intake Total 817 Output Total 500 Balance 317 Med Orders - Current: Current Medications Acetaminophen (Tylenol) 650 mg PO Q4H PRN PRN Reason: Pain (Mild 1-3)/fever Last Admin: 09/24/20 11:04 Dose: 650 mg Documented by: Calcium Citrate (Calcitrate) 950 mg PO DAILY [facility] Last Admin: 09/24/20 09:15 Dose: 950 mg Documented by: Cholecalciferol (Vitamin D3) 125 mcg PO DAILY [facility] Last Admin: 09/24/20 09:14 Dose: 125 mcg Documented by: Duloxetine HCl (Cymbalta) 30 mg PO DAILY [facility] Last Admin: 09/24/20 09:15 Dose: 30 mg Documented by: Enoxaparin Sodium (Lovenox) 40 mg SUBCUT Q24H [facility] Last Admin: 09/23/20 18:05 Dose: 40 mg Documented by: Gabapentin (Neurontin) 300 mg PO BID [facility] Last Admin: 09/24/20 09:15 Dose: 300 mg Documented by: Oxycodone/Acetaminophen (Percocet 325-5 Mg) 1 tab PO Q8H PRN PRN Reason: Pain (severe 7-10) Last Admin: 09/24/20 11:59 Dose: 1 tab Documented by: Discontinued Medications Cyanocobalamin (Vitamin B12) 1,000 mcg SUBCUT ONETIME ONE Stop: 11/27/20 14:07 Last Admin: 09/20/20 15:51 Dose: 1,000 mcg Documented by: Enoxaparin Sodium (Lovenox) 30 mg SUBCUT Q24H [facility] Sodium Chloride (Normal Saline) 1,000 mls @ 100 mls/hr IV ASDIRECTED [facility] Stop: 09/19/20 04:59 Last Admin: 09/18/20 21:06 Dose: 100 mls/hr Documented by: Ceftriaxone Sodium/Dextrose 1 (gm/ Premix) 50 mls @ 100 mls/hr IV Q24H [facility] Last Admin: 09/21/20 18:24 Dose: 100 mls/hr Documented by: Oxycodone/Acetaminophen (Percocet 325-5 Mg) 1 tab PO ONETIME ONE Stop: 09/18/20 14:02 Last Admin: 09/18/20 14:17 Dose: 1 tab Documented by: - Exam General: Alert, Oriented Lungs: Clear to Auscultation, Normal Respiratory Effort Cardiovascular: Regular Rate, Regular Rhythm GI/Abdominal Exam: Normal Bowel Sounds, Soft, Non-Tender Extremities: No Pedal Edema Psy/Mental Status: Alert Sepsis Event Note - Evaluation Sepsis Screening Result: No Definite Risk - Focused Exam Vital Signs: Vital Signs Temp Pulse Resp BP BP Pulse Ox 09/24/20 18:18 98.3 F 87 16 129/85 96 09/24/20 11:35 97.7 F 72 16 139/65 96 09/24/20 07:00 98.6 F 86 16 120/62 94 L - Problem List Review Problem List Initiated/Reviewed/Updated: Yes - Plan Plan:: Ambulatory Dysfunction- PT/OT, Frequent patient repositioning. Lower Back Pain- Thoracic and Lumbar X-rays noted, no acute findings, cont PT/OT Attempted to contact outside facility, [facility], for an inpatient transfer for Inpatient PT and Neurology workup. No beds available. Social work attempting to contact other hospital facilities with open beds. If no options available, patient will be discharged home and receive outpatient therapy and neurology workup.
[2020-09-24] MEDS: Enoxaparin 40 MG/0.4 ML Syringe SUBCUT SCH (18:52)
[2020-09-25] MEDS: Gabapentin 300 MG Cap PO SCH ×2 (08:58→21:48)
[2020-09-25] MEDS: Calcium Citrate 950 MG Tab PO SCH (08:58)
[2020-09-25] MEDS: Cholecalciferol (Vitamin D3) 25 MCG Tab PO SCH (08:58)
[2020-09-25] MEDS: DULoxetine 30 MG Cap PO SCH (08:58)
[2020-09-25] MEDS: Acetaminophen/oxyCODONE 325-5 MG Tab PO PRN ×2 (09:00→18:19)
--- NOTE | 2020-09-25 14:29 | PCM.PN ---
- General Info Date of Service: 09/25/20 Subjective Update: Patient states that she feels fine today. Patient denies fever, chills, nausea, vomiting. Patient states that she slept well last night and has had a good appetite. - Review of Systems Pulmonary: Denies: Shortness of Breath, Pleuritic Chest Pain, Cough Cardiovascular: Denies: Chest Pain, Dyspnea on Exertion Gastrointestinal: Denies: Abdominal Pain, Nausea, Vomiting Musculoskeletal: Reports: Back Pain (chronic, mild) Neurological: Denies: Confusion, Dizziness, Headache Psychiatric: Denies: Confusion - Patient Data Vitals - Most Recent: Last Vital Signs Temp 98.0 F 09/25/20 11:25 Pulse 84 09/25/20 11:25 Resp 18 09/25/20 11:25 BP 135/95 H 09/25/20 11:25 Pulse Ox 95 09/25/20 11:25 Weight - Most Recent: 122 lb 1 oz I&O - Last 24 Hours: Intake & Output 09/24/20 09/25/20 09/25/20 22:59 06:59 14:59 Intake Total 263 850 Output Total 437 800 Balance -174 50 Med Orders - Current: Current Medications Acetaminophen (Tylenol) 650 mg PO Q4H PRN PRN Reason: Pain (Mild 1-3)/fever Last Admin: 09/24/20 11:04 Dose: 650 mg Documented by: Calcium Citrate (Calcitrate) 950 mg PO DAILY [facility] Last Admin: 09/25/20 08:58 Dose: 950 mg Documented by: Cholecalciferol (Vitamin D3) 125 mcg PO DAILY [facility] Last Admin: 09/25/20 08:58 Dose: 125 mcg Documented by: Duloxetine HCl (Cymbalta) 30 mg PO DAILY [facility] Last Admin: 09/25/20 08:58 Dose: 30 mg Documented by: Enoxaparin Sodium (Lovenox) 40 mg SUBCUT Q24H [facility] Last Admin: 09/24/20 18:52 Dose: 40 mg Documented by: Gabapentin (Neurontin) 300 mg PO BID [facility] Last Admin: 09/25/20 08:58 Dose: 300 mg Documented by: Oxycodone/Acetaminophen (Percocet 325-5 Mg) 1 tab PO Q8H PRN PRN Reason: Pain (severe 7-10) Last Admin: 09/25/20 09:00 Dose: 1 tab Documented by: Discontinued Medications Cyanocobalamin (Vitamin B12) 1,000 mcg SUBCUT ONETIME ONE Stop: 09/20/20 14:07 Last Admin: 09/20/20 15:51 Dose: 1,000 mcg Documented by: Enoxaparin Sodium (Lovenox) 30 mg SUBCUT Q24H [facility] Sodium Chloride (Normal Saline) 1,000 mls @ 100 mls/hr IV ASDIRECTED [facility] Stop: 09/19/20 04:59 Last Admin: 09/18/20 21:06 Dose: 100 mls/hr Documented by: Ceftriaxone Sodium/Dextrose 1 (gm/ Premix) 50 mls @ 100 mls/hr IV Q24H [facility] Last Admin: 09/21/20 18:24 Dose: 100 mls/hr Documented by: Oxycodone/Acetaminophen (Percocet 325-5 Mg) 1 tab PO ONETIME ONE Stop: 09/18/20 14:02 Last Admin: 09/18/20 14:17 Dose: 1 tab Documented by: - Exam General: Alert, Oriented Lungs: Clear to Auscultation, Normal Respiratory Effort Cardiovascular: Regular Rate, Regular Rhythm GI/Abdominal Exam: Normal Bowel Sounds, Soft, Non-Tender Extremities: No Pedal Edema Skin: Warm Psy/Mental Status: Alert Sepsis Event Note - Evaluation Sepsis Screening Result: No Definite Risk - Focused Exam Vital Signs: Vital Signs Temp Pulse Resp BP Pulse Ox 09/25/20 11:25 98.0 F 84 18 135/95 H 95 09/25/20 08:00 97.4 F 81 14 128/89 98 09/25/20 04:14 97.8 F 81 16 132/69 95 - Problem List Review Problem List Initiated/Reviewed/Updated: Yes - My Orders Last 24 Hours: My Active Orders 09/25/20 09:34 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 Lower Back Pain- Thoracic and Lumbar X-rays noted, no acute findings, cont PT/OT Social work is still at attempting to contact outside facilities. Currently no beds are available for patient today. No beds available. If no options available, patient will be discharged home and receive outpatient therapy and neurology workup. Patient states that she is having difficulty and weakness with her voice. Speech language pathology consulted.
[2020-09-25] MEDS: Acetaminophen 325 MG Tab PO PRN (16:00)
[2020-09-25] MEDS: Enoxaparin 40 MG/0.4 ML Syringe SUBCUT SCH (18:56)
[2020-09-26] MEDS: Acetaminophen/oxyCODONE 325-5 MG Tab PO PRN ×3 (06:05→23:42)
[2020-09-26] MEDS: Gabapentin 300 MG Cap PO SCH ×2 (08:42→20:41)
[2020-09-26] MEDS: Cholecalciferol (Vitamin D3) 25 MCG Tab PO SCH (08:42)
[2020-09-26] MEDS: DULoxetine 30 MG Cap PO SCH (08:42)
[2020-09-26] MEDS: Calcium Citrate 950 MG Tab PO SCH (08:43)
--- NOTE | 2020-09-26 09:07 | PCM.PN ---
- General Info Date of Service: 09/26/20 Subjective Update: Patient states that she did not sleep well last night. Patient states that she would like to discuss increasing her pain medication dosage of Percocet to 10mg/325mg advised patient that we can increase her positioning throughout the day which should decrease her lower back pain., and changing her Cymbalta to name brand Prozac 60 mg. Patient states that she is having lower back pain only when not being turned frequently. Advised patient that we can increase re- positioning times to decrease lower back pain. - Review of Systems General: Denies: Fever, Chills Pulmonary: Denies: Shortness of Breath, Pleuritic Chest Pain Cardiovascular: Denies: Chest Pain, Palpitations, Dyspnea on Exertion Gastrointestinal: Denies: Abdominal Pain, Nausea, Vomiting Musculoskeletal: Reports: Back Pain (chronic, lower back) Neurological: Denies: Confusion, Dizziness Psychiatric: Denies: Confusion - Patient Data Vitals - Most Recent: Last Vital Signs Temp 97.9 F 09/26/20 08:00 Pulse 83 09/26/20 08:00 Resp 18 09/26/20 08:00 BP 123/70 09/26/20 08:00 Pulse Ox 96 09/26/20 08:00 Weight - Most Recent: 122 lb 1 oz I&O - Last 24 Hours: Intake & Output 09/25/20 09/26/20 09/26/20 22:59 06:59 14:59 Intake Total 720 750 Output Total 800 Balance 720 -50 Med Orders - Current: Current Medications Acetaminophen (Tylenol) 650 mg PO Q4H PRN PRN Reason: Pain (Mild 1-3)/fever Last Admin: 09/25/20 16:00 Dose: 650 mg Documented by: Calcium Citrate (Calcitrate) 950 mg PO DAILY [facility] Last Admin: 09/26/20 08:43 Dose: 950 mg Documented by: Cholecalciferol (Vitamin D3) 125 mcg PO DAILY [facility] Last Admin: 09/26/20 08:42 Dose: 125 mcg Documented by: Duloxetine HCl (Cymbalta) 30 mg PO DAILY [facility] Last Admin: 09/26/20 08:42 Dose: 30 mg Documented by: Enoxaparin Sodium (Lovenox) 40 mg SUBCUT Q24H [facility] Last Admin: 09/25/20 18:56 Dose: 40 mg Documented by: Gabapentin (Neurontin) 300 mg PO BID [facility] Last Admin: 09/26/20 08:42 Dose: 300 mg Documented by: Oxycodone/Acetaminophen (Percocet 325-5 Mg) 1 tab PO Q8H PRN PRN Reason: Pain (severe 7-10) Last Admin: 09/26/20 06:05 Dose: 1 tab Documented by: Discontinued Medications Cyanocobalamin (Vitamin B12) 1,000 mcg SUBCUT ONETIME ONE Stop: 09/20/20 14:07 Last Admin: 09/20/20 15:51 Dose: 1,000 mcg Documented by: Enoxaparin Sodium (Lovenox) 30 mg SUBCUT Q24H [facility] Sodium Chloride (Normal Saline) 1,000 mls @ 100 mls/hr IV ASDIRECTED [facility] Stop: 09/19/20 04:59 Last Admin: 09/18/20 21:06 Dose: 100 mls/hr Documented by: Ceftriaxone Sodium/Dextrose 1 (gm/ Premix) 50 mls @ 100 mls/hr IV Q24H [facility] Last Admin: 09/21/20 18:24 Dose: 100 mls/hr Documented by: Oxycodone/Acetaminophen (Percocet 325-5 Mg) 1 tab PO ONETIME ONE Stop: 09/18/20 14:02 Last Admin: 09/18/20 14:17 Dose: 1 tab Documented by: - Exam General: Alert Lungs: Clear to Auscultation, Normal Respiratory Effort Cardiovascular: Regular Rate, Regular Rhythm GI/Abdominal Exam: Normal Bowel Sounds, Soft, Non-Tender Extremities: No Pedal Edema Skin: Warm, Dry Sepsis Event Note - Evaluation Sepsis Screening Result: No Definite Risk - Focused Exam Vital Signs: Vital Signs Temp Pulse Resp BP Pulse Ox 09/26/20 08:00 97.9 F 83 18 123/70 96 09/26/20 04:00 97.6 F 85 16 130/71 93 L 09/26/20 00:50 97.7 F 71 17 125/60 96 - Problem List Review Problem List Initiated/Reviewed/Updated: Yes - My Orders Last 24 Hours: My Active Orders 09/25/20 09:34 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 Lower Back Pain- Thoracic and Lumbar X-rays noted, no acute findings, cont PT/OT Social work is still at attempting to contact outside facilities. Currently no beds are available for patient today. No beds available. If no options available, patient will be discharged home and receive outpatient therapy and neurology workup. Patient states that she is having difficulty and weakness with her voice. Speech language pathology consulted.
[2020-09-26] MEDS: Enoxaparin 40 MG/0.4 ML Syringe SUBCUT SCH (19:05)
[2020-09-27] MEDS: Acetaminophen/oxyCODONE 325-5 MG Tab PO PRN ×2 (09:02→16:58)
[2020-09-27] MEDS: DULoxetine 30 MG Cap PO SCH (09:04)
[2020-09-27] MEDS: Calcium Citrate 950 MG Tab PO SCH (09:04)
[2020-09-27] MEDS: Gabapentin 300 MG Cap PO SCH (09:05)
[2020-09-27] MEDS: Cholecalciferol (Vitamin D3) 25 MCG Tab PO SCH (09:06)
--- NOTE | 2020-09-27 16:05 | PCM.DCSUM1 ---
<Garo Ramey - Last Filed: 09/27/20 16:05> Discharge Summary - Hospital Course Free Text/Narrative:: 60-year-old woman admitted on 09-18-2020 for ambulatory dysfunction with inability to take care of herself. Patient has a PMH of chronic back pain who is bedbound and nonambulatory requiring a wheelchair, history of chronic UTI's, depression and anxiety. Patient presented to the ED with a complaint of back pain. Patients back pain does not radiate to her lower extremities and she denies numbness or decreased sensation her lower extremities. Patients primary caregiver, her boyfriend, has been injured and is not able to take care of her. Patient states that she has generalized weakness and has lost significant weight in the past few months. 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 Due to patient's chronic debilities, admission to an inpatient facility for nonemergent care is extremely difficult due to the COVID-19 pandemic. Multiple facilities around the [facility] were contacted but no beds were available for the patient's needs which at this point include extensive physical therapy for ambulatory dysfunction and neurology work-up. Patient was seen by physical therapy, speech therapy during her admission. Of note patient has been scheduled for outpatient follow-up with neurology and outpatient EMG studies here in [place] but patient has not kept her appointments. Patient will be discharged home and scheduled for outpatient follow-up with pcp and neurology providers as well as outpatient physical therapy. Patient's boyfriend has been contacted and he has agreed to assist the patient. - Discharge Data Discharge Date: 09/27/20 Discharge Disposition: Home, Self-Care 01 Condition: Fair - Referral to Home Health Primary Care Physician: PCP None - Patient Summary/Data Consults: Consultations 09/20/20 14:57 Consult to Physical Therapy [PT Evaluation and Treatment] [CONS] Routine 09/25/20 09:34 Consult to Speech Language Pathology [QUEEN'S COUNSEL Evaluation and Treatment] [CONS] Routine 09/27/20 13:27 Consult to Home Care [Consult to Home Health] [CONS] Routine 09/27/20 13:28 Consult to Occupational Therapy [OT Evaluation and Treatment] [CONS] Routine - Patient Instructions Diet: Heart Healthy Diet Activity: As Tolerated Driving: Do Not Drive Showering/Bathing: May Shower Notify Provider of: Fever, Increased Pain, Swelling and Redness, Nausea and/or Vomiting Other/Special Instructions: PT Outpatient. ENT Appointment. Patient to follow up with PCP - Discharge Plan Prescriptions/Med Rec: oxyCODONE HCl/Acetaminophen [Oxycodone-Acetaminophen 5-325] 1 each PO 5XDAY 7 Days #35 Cholecalciferol (Vitamin D3) [Vitamin D3] 125 mcg PO DAILY 30 Days #30 tablet Home Medications: Home Meds DULoxetine [Cymbalta] 30 mg PO DAILY 07/16/20 [History] Gabapentin [Neurontin] 300 mg PO BID #60 cap 07/17/20 [Rx] Cholecalciferol (Vitamin D3) [Vitamin D3] 125 mcg PO DAILY 30 Days #30 tablet 09/27/20 [Rx] oxyCODONE HCl/Acetaminophen [Oxycodone-Acetaminophen 5-325] 1 each PO 5XDAY 7 Days #35 09/27/20 [Rx] Patient Handouts: Alendronate; Cholecalciferol tablets, Calcium; Vitamin D oral tablets, Oxycodone tablets or capsules, Weakness, [id number] Referrals: Sana Moreland MD [Physician] - 10/23/20 3:00 am Oscar Park MD [Physician] - 10/03/20 9:00 am - Discharge Summary/Plan Comment DC Time >30 min.: Yes - General Info Date of Service: 09/27/20 Subjective Update: Patient states that she feels fine today, and is ready to be discharged. Patient does understand the current treatment plan which will include her being discharged home and she receiving outpatient physical therapy and follow-up appointments with her medical providers. Patient denies fever, chills, headaches, nausea, vomiting, abdominal pain. Patient states of mild lower back pain which is chronic. - Review of Systems General: Denies: Fever, Chills Pulmonary: Denies: Shortness of Breath, Pleuritic Chest Pain, Cough Cardiovascular: Denies: Chest Pain, Palpitations Gastrointestinal: Denies: Abdominal Pain, Decreased Appetite, Nausea, Vomiting Musculoskeletal: Reports: Back Pain (mild, chronic) Neurological: Denies: Confusion, Dizziness, Headache Psychiatric: Denies: Confusion - Patient Data Vitals - Most Recent: Last Vital Signs Temp 97.5 F 09/27/20 11:48 Pulse 98 09/27/20 11:48 Resp 17 09/27/20 11:48 BP 131/73 09/27/20 11:48 Pulse Ox 94 L 09/27/20 04:00 Weight - Most Recent: 55.367 kg I&O - Last 24 hours: Intake & Output 09/27/20 09/27/20 09/27/20 06:59 14:59 22:59 Intake Total 1000 Output Total 1000 1000 Balance 0 -1000 Med Orders - Current: Current Medications Acetaminophen (Tylenol) 650 mg PO Q4H PRN PRN Reason: Pain (Mild 1-3)/fever Last Admin: 09/25/20 16:00 Dose: 650 mg Documented by: Calcium Citrate (Calcitrate) 950 mg PO DAILY [facility] Last Admin: 09/27/20 09:04 Dose: 950 mg Documented by: Cholecalciferol (Vitamin D3) 125 mcg PO DAILY [facility] Last Admin: 09/27/20 09:06 Dose: 125 mcg Documented by: Duloxetine HCl (Cymbalta) 30 mg PO DAILY [facility] Last Admin: 09/27/20 09:04 Dose: 30 mg Documented by: Enoxaparin Sodium (Lovenox) 40 mg SUBCUT Q24H [facility] Last Admin: 09/26/20 19:05 Dose: 40 mg Documented by: Gabapentin (Neurontin) 300 mg PO BID [facility] Last Admin: 09/27/20 09:05 Dose: 300 mg Documented by: Oxycodone/Acetaminophen (Percocet 325-5 Mg) 1 tab PO Q8H PRN PRN Reason: Pain (severe 7-10) Last Admin: 09/27/20 09:02 Dose: 1 tab Documented by: Discontinued Medications Cyanocobalamin (Vitamin B12) 1,000 mcg SUBCUT ONETIME ONE Stop: 09/20/20 14:07 Last Admin: 09/20/20 15:51 Dose: 1,000 mcg Documented by: Enoxaparin Sodium (Lovenox) 30 mg SUBCUT Q24H [facility] Sodium Chloride (Normal Saline) 1,000 mls @ 100 mls/hr IV ASDIRECTED [facility] Stop: 09/19/20 04:59 Last Admin: 09/18/20 21:06 Dose: 100 mls/hr Documented by: Ceftriaxone Sodium/Dextrose 1 (gm/ Premix) 50 mls @ 100 mls/hr IV Q24H [facility] Last Admin: 09/21/20 18:24 Dose: 100 mls/hr Documented by: Oxycodone/Acetaminophen (Percocet 325-5 Mg) 1 tab PO ONETIME ONE Stop: 09/18/20 14:02 Last Admin: 09/18/20 14:17 Dose: 1 tab Documented by: - Exam General: Reports: Alert, Oriented Lungs: Reports: Clear to Auscultation, Normal Respiratory Effort Cardiovascular: Reports: Regular Rate, Regular Rhythm GI/Abdominal Exam: Normal Bowel Sounds, Soft, Non-Tender Psy/Mental Status: Reports: Alert <Antoni Dubon - Last Filed: 09/27/20 21:02> Discharge Summary - Referral to Home Health Primary Care Physician: PCP None - Patient Summary/Data Consults: Consultations 09/20/20 14:57 Consult to Physical Therapy [PT Evaluation and Treatment] [CONS] Routine 09/25/20 09:34 Consult to Speech Language Pathology [QUEEN'S COUNSEL Evaluation and Treatment] [CONS] Routine 09/27/20 13:27 Consult to Home Care [Consult to Home Health] [CONS] Routine 09/27/20 13:28 Consult to Occupational Therapy [OT Evaluation and Treatment] [CONS] Routine - Patient Data Vitals - Most Recent: Last Vital Signs Temp 36.4 C 09/27/20 16:00 Pulse 80 09/27/20 16:00 Resp 17 09/27/20 16:00 BP 125/68 09/27/20 16:00 Pulse Ox 95 09/27/20 16:00 I&O - Last 24 hours: Intake & Output 09/27/20 09/27/20 09/27/20 06:59 14:59 22:59 Intake Total 1000 Output Total 1000 1000 Balance 0 -1000 Med Orders - Current: Current Medications Discontinued Medications Acetaminophen (Tylenol) 650 mg PO Q4H PRN PRN Reason: Pain (Mild 1-3)/fever Last Admin: 09/25/20 16:00 Dose: 650 mg Documented by: Calcium Citrate (Calcitrate) 950 mg PO DAILY [facility] Last Admin: 09/27/20 09:04 Dose: 950 mg Documented by: Cholecalciferol (Vitamin D3) 125 mcg PO DAILY [facility] Last Admin: 09/27/20 09:06 Dose: 125 mcg Documented by: Cyanocobalamin (Vitamin B12) 1,000 mcg SUBCUT ONETIME ONE Stop: 09/20/20 14:07 Last Admin: 09/20/20 15:51 Dose: 1,000 mcg Documented by: Duloxetine HCl (Cymbalta) 30 mg PO DAILY [facility] Last Admin: 09/27/20 09:04 Dose: 30 mg Documented by: Enoxaparin Sodium (Lovenox) 30 mg SUBCUT Q24H [facility] Enoxaparin Sodium (Lovenox) 40 mg SUBCUT Q24H [facility] Last Admin: 09/26/20 19:05 Dose: 40 mg Documented by: Gabapentin (Neurontin) 300 mg PO BID [facility] Last Admin: 09/27/20 09:05 Dose: 300 mg Documented by: Sodium Chloride (Normal Saline) 1,000 mls @ 100 mls/hr IV ASDIRECTED [facility] Stop: 09/19/20 04:59 Last Admin: 09/18/20 21:06 Dose: 100 mls/hr Documented by: Ceftriaxone Sodium/Dextrose 1 (gm/ Premix) 50 mls @ 100 mls/hr IV Q24H [facility] Last Admin: 09/21/20 18:24 Dose: 100 mls/hr Documented by: Oxycodone/Acetaminophen (Percocet 325-5 Mg) 1 tab PO ONETIME ONE Stop: 09/18/20 14:02 Last Admin: 09/18/20 14:17 Dose: 1 tab Documented by: Oxycodone/Acetaminophen (Percocet 325-5 Mg) 1 tab PO Q8H PRN PRN Reason: Pain (severe 7-10) Last Admin: 09/27/20 16:58 Dose: 1 tab Documented by: - Free Text/Narrative Note: I have seen and evaluated the patient. I have discussed findings and treatment plan with resident. I agree with the assessment and plan in the following note.
== END 2020-09-27 18:00 | disposition home or self-care (01) | DRG 948 ==
LOC: MW.ED 13:36 → MW.MS 17:12
PROVIDERS: ADMIT Student in an Organized Health Care Education/Training Program; ATTEND Student in an Organized Health Care Education/Training Program
DX: R53.81 Other malaise (principal); R26.89 Other abnormalities of gait and mobility; M54.5 Low back pain; G89.29 Other chronic pain; Z87.440 Personal history of urinary (tract) infections; F41.9 Anxiety disorder, unspecified; F32.9 Major depressive disorder, single episode, unspecified; R32 Unspecified urinary incontinence; F43.10 Post-traumatic stress disorder, unspecified; M51.36 Other intervertebral disc degeneration, lumbar region; Z79.899 Other long term (current) drug therapy; Z87.891 Personal history of nicotine dependence; Z20.828 Contact with and (suspected) exposure to other viral communicable diseases; Z74.01 Bed confinement status
CPT/HCPCS: 36415; 72070; 72070-26; 72100; 72100-26; 73560-26-RT; 73560-RT; 80048; 80053; 81001; 82306; 82607; 85025; 87086; 92507-GN; 92522-GN; 97110-GP; 97161-GP; 97530-GP; 99222; 99231; 99232; 99239; 99284; 99285-25; A9270-GY; J0696; J1650; J3420; J7030; U0002

== ENCOUNTER 2020-10-01 00:03 | Emergency (ER) | payer MEDICAID ==
--- NOTE | 2020-10-01 00:53 | EDM.PDOC ---
ED HPI GENERAL MEDICAL PROBLEM - General Chief Complaint: Back Pain or Injury Stated Complaint: POSSIBLE SLIPT DISK Time Seen by Provider: 10/01/20 00:15 - History of Present Illness INITIAL COMMENTS - FREE TEXT/NARRATIVE: History of present illness: [] Patient who had an admission for 9 nights on 18 September because of chronic back pain had efforts made to find placement where she could get occupational therapy and rehab. There is no facility available for her and her data engineer/fianc agreed to take her home and help her. She says he still helps her. EMS said they were he was there when they picked her up. She says it can help her because he needs to get a job and work. They have a poor social situation with no income. Unfortunately for unskilled labor there is actually no jobs available in [place] at this time. He wants him to get paid to take care of her. She does have chronic back pain and has been in multiple times for x-rays of spine and pelvis etc. since a fall in February. She has no new neurologic condition. She has weakness in both lower extremities and makes it difficult for her to walk even with a walker. She often uses a wheelchair. She has oxycodone for pain. She has a primary doctor here in [facility]. Review of systems: As per history of present illness and below otherwise all systems reviewed and negative. Past medical history: As per history of present illness and as reviewed below otherwise noncontributory. Surgical history: As per history of present illness and as reviewed below otherwise noncontributory. Social history: No reported history of drug or alcohol abuse. Family history: As per history of present illness and as reviewed below otherwise noncontributory. Physical exam: Constitutional - well developed, well-nourished and in no acute distress HEENT - normocephalic, no evidence of trauma - external nose and mouth normal - no mass in neck and no JVD - mucosae moist EYES - full EOM, PERRL, no icterus - no evidence of inflammation, injection, or drainage Respiratory - no respiratory distress, equal bilateral expansion, lungs clear to auscultation and no abnormal lung sounds Cardiovascular - Regular Rhythm with S1 and S2 appreciated and no murmur, gallop or rub. GI - abdomen soft without distension or organomegaly - normal bowel sounds - no guard or rebound Musculoskeletal no gross deformity of long bones or joints - no tenderness, swelling or edema Neurologic - Alert and oriented times four - CN II-XII grossly intact - motor sensory and coordination symmetrical.'s are weak. Her movement is symmetric. Psychiatric - appropriate mood and affect with normal thought content Hematologic - No petechiae or purpura - mucosa appropriate color and sclera not pale - normal nail bed color and refill Integument - no rash or evidence of trauma - normal turgor Diagnostics: [] Therapeutics: [] Impression: [] Plan: [] Definitive disposition and diagnosis as appropriate pending reevaluation and review of above. Tailbone Pain Score (Numeric/FACES): 10 - Related Data Allergies Allergy/AdvReac Type Severity Reaction Status Date / Time No Known Allergies Allergy Verified 10/01/20 00:10 Home Meds: Home Meds DULoxetine [Cymbalta] 30 mg PO DAILY 07/16/20 [History] Gabapentin [Neurontin] 300 mg PO BID #60 cap 07/17/20 [Rx] Cholecalciferol (Vitamin D3) [Vitamin D3] 125 mcg PO DAILY 30 Days #30 tablet 09/27/20 [Rx] oxyCODONE HCl/Acetaminophen [Oxycodone-Acetaminophen 5-325] 1 each PO 5XDAY 7 Days #35 09/27/20 [Rx] Past Medical History HEENT History: Reports: None Cardiovascular History: Reports: None Respiratory History: Reports: None Gastrointestinal History: Reports: None Genitourinary History: Reports: None Other Genitourinary History: incontinent of urine 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: Musculoskeletal History: Reports: None, Back Pain, Chronic Other Musculoskeletal History: left ankle and r wrist fx Neurological History: Reports: None Psychiatric History: Reports: Anxiety, Depression, PTSD Endocrine/Metabolic History: Reports: None Hematologic History: Reports: None Immunologic History: Reports: None Oncologic (Cancer) History: Reports: None Dermatologic History: Reports: None - Infectious Disease History Infectious Disease History: Reports: None - Past Surgical History Head Surgeries/Procedures: Reports: None HEENT Surgical History: Reports: None Respiratory Surgical History: Reports: None Female Surgical History: Reports: None Neurological Surgical History: Reports: Lumbar Spine Musculoskeletal Surgical History: Reports: None Other Musculoskeletal Surgeries/Procedures:: unable to ambulate due to tail bone injury Social & Family History - Family History Family Medical History: No Pertinent Family History - Tobacco Use Tobacco Use Status *Q: Never Tobacco User - Caffeine Use Caffeine Use: Reports: None - Recreational Drug Use Recreational Drug Use: No ED ROS GENERAL - Review of Systems Review Of Systems: Comprehensive ROS is negative, except as noted in HPI. ED EXAM, GENERAL - Physical Exam Exam: See Below Free Text/Narrative:: My physical exam is in the HPI Course - Vital Signs Last Recorded V/S: Last Vital Signs Temp 36.8 C 10/01/20 00:07 Pulse 102 H 10/01/20 00:07 Resp 18 10/01/20 00:07 BP 152/73 H 10/01/20 00:07 Pulse Ox 98 10/01/20 00:07 - Orders/Labs/Meds Orders: Active Orders 24 hr Category Date Time Status UA W/DARIO RFLX IF INDICATED [URIN] Stat Lab 10/01/20 00:19 Ordered Labs: Laboratory Tests 10/01/20 10/01/20 Range/Units 00:30 00:30 WBC 6.48 (4.0-11.0) K/uL RBC 4.73 (4.30-5.90) M/uL Hgb 14.0 (12.0-16.0) g/dL Hct 42.7 (36.0-46.0) % MCV 90.3 (80.0-98.0) fL MCH 29.6 (27.0-32.0) pg MCHC 32.8 (31.0-37.0) g/dL RDW Std Deviation 44.0 (28.0-62.0) fl RDW Coeff of Gila 14 (11.0-15.0) % Plt Count 343 (150-400) K/uL MPV 9.50 (7.40-12.00) fL Neut % (Auto) 57.5 (48.0-80.0) % Lymph % (Auto) 27.2 (16.0-40.0) % [place] % (Auto) 9.9 (0.0-15.0) % Eos % (Auto) 5.1 (0.0-7.0) % Baso % (Auto) 0.3 (0.0-1.5) % Neut # (Auto) 3.7 (1.4-5.7) K/uL Lymph # (Auto) 1.8 (0.6-2.4) K/uL [place] # (Auto) 0.6 (0.0-0.8) K/uL Eos # (Auto) 0.3 (0.0-0.7) K/uL Baso # (Auto) 0.0 (0.0-0.1) K/uL Sodium 139 (136-145) mmol/L Potassium 3.7 (3.5-5.1) mmol/L Chloride 102 (98-107) mmol/L Carbon Dioxide 25.1 (21.0-32.0) mmol/L BUN 21 H (7.0-18.0) mg/dL Creatinine 0.6 (0.6-1.0) mg/dL Est Cr Clr Drug Dosing 73.09 mL/min Estimated GFR (MDRD) > 60.0 ml/min Glucose 82 (74-106) mg/dL Calcium 9.5 (8.5-10.1) mg/dL Total Bilirubin 3.3 H (0.2-1.0) mg/dL AST 27 (15-37) IU/L ALT 61 (14-63) IU/L Alkaline Phosphatase 86 (46-116) U/L Total Protein 7.8 (6.4-8.2) g/dL Albumin 3.8 (3.4-5.0) g/dL Globulin 4.0 (2.6-4.0) g/dL Albumin/Globulin Ratio 0.9 (0.9-1.6) Departure - Departure Time of Disposition: 01:19 Disposition: Home, Self-Care 01 Condition: Good Clinical Impression: Chronic back pain - Discharge Information Forms: ED Department Discharge Additional Instructions: [facility] Address: [address] [place] [id number] Hours: walk in 9 AM M-F [facility] [address], [place] [address] [facility] [address] [place] [id number] The following information is given to patients seen in the emergency department who are being discharged to home. This information is to outline your options for follow-up care. We provide all patients seen in our emergency department with a follow-up referral. The need for follow-up, as well as the timing and circumstances, are variable depending upon the specifics of your emergency department visit. If you don't have a primary care physician on staff, we will provide you with a referral. We always advise you to contact your personal physician following an emergency department visit to inform them of the circumstance of the visit and for follow-up with them and/or the need for any referrals to a consulting specialist. The emergency department will also refer you to a specialist when appropriate. This referral assures that you have the opportunity for follow-up care with a specialist. All of these measure are taken in an effort to provide you with optimal care, which includes your follow-up. Under all circumstances we always encourage you to contact your private physician who remains a resource for coordinating your care. When calling for follow-up care, please make the office aware that this follow-up is from your recent emergency room visit. If for any reason you are refused follow-up, please contact the [facility] Emergency Department at and asked to speak to the emergency department charge nurse. Sepsis Event Note (ED) - Evaluation Sepsis Screening Result: No Definite Risk - Focused Exam Vital Signs: Vital Signs Temp Pulse Resp BP Pulse Ox 10/01/20 00:07 36.8 C 102 H 18 152/73 H 98 - My Orders Last 24 Hours: My Active Orders 10/01/20 00:19 UA W/DARIO RFLX IF INDICATED [URIN] Stat - Assessment/Plan Last 24 Hours: My Active Orders 10/01/20 00:19 UA W/DARIO RFLX IF INDICATED [URIN] Stat
[2020-10-01 01:03] LABS: BLOOD UREA NITROGEN,BUN 21 mg/dL (7.0-18.0); CARBON DIOXIDE,CO2 25.1 mmol/L (21.0-32.0); CHLORIDE,CL 102 mmol/L (98-107); GLUCOSE RANDOM 82 mg/dL (74-106); POTASSIUM,K 3.7 mmol/L (3.5-5.1); SODIUM,NA 139 mmol/L (136-145)
== END 2020-10-01 01:45 | disposition home or self-care (01) ==
LOC: MW.ED 00:03
DX: M54.9 Dorsalgia, unspecified (principal); G89.29 Other chronic pain; F41.9 Anxiety disorder, unspecified; F32.9 Major depressive disorder, single episode, unspecified; Z79.899 Other long term (current) drug therapy
CPT/HCPCS: 36415; 80053; 85025; 99283